=== PATIENT | male | born 1980 | race Two or more races ===

== ENCOUNTER → 2021-07-22 | Emergency (ER) | payer SELFPAY ==
[~2021-07-22] VITALS: Ht 172.7 cm; Wt 90.7 kg
[~2021-07-22] MED LIST: MORPHINE SULFATE 4 MG/ML SYR/VIAL IV ONE; ONDANSETRON HCL 4 MG/2 ML VIAL IV ONE; SODIUM CHLORIDE 0.9% 1,000 ML IVB ONE
[2021-07-22 14:12] VITALS: BP 163/88
[2021-07-22 15:22] LABS: Basophils # (auto) 0 10 ^3/uL (0-0.2); Basophils % (auto) 0.3 % (0.0-2.0); Eosinophils # (auto) 0.2 10 ^3/uL (0-0.8); Hematocrit 43.5 % (41.0-53.0); Hemoglobin 15.8 g/dL (13.5-17.5); Lymphocytes # (auto) 2.8 10 ^3/uL (0.4-5.4); Lymphocytes % (auto) 29.8 % (10.0-50.0); Mean Corpuscular Hemoglobin 30.6 pg (28.0-32.0); Mean Corpuscular Hgb Conc. 36.4 g/dL (32.0-36.0); Monocytes # (auto) 0.9 10 ^3/uL (0-1.3); Monocytes % (auto) 9.5 % (0.0-12.0); Neutrophils # (auto) 5.6 10 ^3/uL (1.6-8.6); Neutrophils % (auto) 58.4 % (37.0-80.0); Nucleated Red Blood Cells % 0.2 %; Red Blood Cells 5.18 10^6/uL (4.5-5.90); Red Cell Distribution Width 13.9 % (11.8-14.3); White Blood Cell 9.5 10^3/uL (4.4-10.8)
[2021-07-22 15:43] LABS: Albumin 3.2 g/dL (3.4-5.0); Magnesium 2.4 mg/dL (1.6-2.6); Potassium 3.6 mmol/L (3.5-5.1)
[2021-07-22 15:55] LABS: BUN/Creatinine Ratio 7.6; Bilirubin, Total 0.9 mg/dL (0.2-1.0); Total Protein 7.6 g/dL (6.4-8.2)
== END | disposition home or self-care (01) ==
LOC: ER 14:12 → EDBD 14:12
DX: R07.89 Other chest pain (principal); E78.5 Hyperlipidemia, unspecified; I10 Essential (primary) hypertension; F17.210 Nicotine dependence, cigarettes, uncomplicated
CPT/HCPCS: 36415; 71045; 80053; 83735; 84484; 85025; 93005

== ENCOUNTER 2021-12-25 07:07 | Inpatient (IN) | payer OTHER ==
[~2021-12-25] VITALS: Ht 172.7 cm; Wt 118.6 kg
[2021-12-25] MEDS ORDERED: cloNIDine HCL 0.1 MG TAB PO ONE (07:30)
[2021-12-25 08:06] LABS: Basophils # (auto) 0 10 ^3/uL (0-0.2); Basophils % (auto) 0.1 % (0.0-2.0); Eosinophils # (auto) 0 10 ^3/uL (0-0.8); Hematocrit 45.9 % (41.0-53.0); Lymphocytes # (auto) 0.7 10 ^3/uL (0.4-5.4); Lymphocytes % (auto) 9.3 % (10.0-50.0); Mean Corpuscular Hemoglobin 30.3 pg (28.0-32.0); Mean Corpuscular Hgb Conc. 34.8 g/dL (32.0-36.0); Mean Corpuscular Volume 87.2 fL (80.0-100.0); Monocytes # (auto) 0.4 10 ^3/uL (0-1.3); Neutrophils # (auto) 6.6 10 ^3/uL (1.6-8.6); Neutrophils % (auto) 85.6 % (37.0-80.0); Nucleated Red Blood Cells % 0.1 %; Red Blood Cells 5.27 10^6/uL (4.5-5.90); Red Cell Distribution Width 13.6 % (11.8-14.3); White Blood Cell 7.8 10^3/uL (4.4-10.8)
[2021-12-25 08:24] LABS: Albumin 3.5 g/dL (3.4-5.0); BUN/Creatinine Ratio 15.6; Calcium 8.2 mg/dL (8.5-10.1); Potassium 3.9 mmol/L (3.5-5.1)
[2021-12-25 08:34] LABS: Bilirubin, Total 2.3 mg/dL (0.2-1.0); Total Protein 6.3 g/dL (6.4-8.2)
[2021-12-25] MEDS ORDERED: LABETALOL HCL 5 MG/ML 4ML SYRINGE IV ONE (09:30)
[2021-12-25] MEDS ORDERED: hydrALAZINE HCL 20 MG/ML VL IV ONE (09:30)
[2021-12-25] MEDS ORDERED: SODIUM CHLORIDE 0.9% 500 ML IVB ONE (09:45)
[2021-12-25] MEDS ORDERED: METOCLOPRAMIDE HCL 5MG/ml INJ 2ml VIAL IV ONE (09:45)
[2021-12-25] MEDS: HYDROmorphone HCL 2 MG/ML VL/or syr IV ONE ×2 (09:45→12:56)
[2021-12-25] MEDS ORDERED: SODIUM CHLORIDE 0.9% 1,000 ML IV ONE ×2 (09:45→13:00)
[2021-12-25 10:20] LABS: Urine Bacteria NONE SEEN /hpf (None Seen); Urine Blood Negative /uL (Negative); Urine Mucus FEW (None Seen); Urine Specific Gravity 1.015 (1.001-1.035); Urine WBC 1 /hpf (0 - 3)
[2021-12-25 11:32] LABS: Amphetamine Screen, Urine POSITIVE (NEGATIVE); Barbiturate Scree,Urine NEGATIVE (NEGATIVE); Benzodiazephine Screen, Urine NEGATIVE (NEGATIVE); Cannabinoid Screen, Urine NEGATIVE (NEGATIVE); Cocaine Screen, Urine NEGATIVE (NEGATIVE); Opiate Scree,Urine NEGATIVE (NEGATIVE); Phencyclidine Screen, Urine NEGATIVE (NEGATIVE)
[2021-12-25] MEDS ORDERED: HYDROcodone-ACET 5/325MG TAB PO PRN (13:00)
[2021-12-25] MEDS ORDERED: ONDANSETRON HCL 4 MG/2 ML VIAL IV PRN (13:00)
[2021-12-25] MEDS ORDERED: SODIUM CHLORIDE 0.9% 1,000 ML IV SCH (13:00)
[2021-12-25] MEDS ORDERED: NITROGLYCERIN 0.4 MG SL TAB SL PRN (13:00)
[2021-12-25] MEDS ORDERED: MORPHINE SULFATE INJ 2 MG/ml SYRG IV PRN (13:00)
[2021-12-25] MEDS ORDERED: DOCUSATE SOD 100 MG CAP PO PRN (13:00)
[2021-12-25] MEDS ORDERED: ACETAMINOPHEN 325 MG TAB PO PRN (13:00)
[2021-12-25] MEDS ORDERED: KETOROLAC TROMETH 30 MG/ML 1ML VIAL IV ONE (13:15)
[2021-12-25 13:36] LABS: Cholesterol 150 mg/dL (< 200); HDL Cholesterol 44 mg/dL (40-59); LDL Cholesterol 99 mg/dL (< 100); Triglycerides 78 mg/dL (< 150)
[2021-12-25] MEDS: METOCLOPRAMIDE HCL 5MG/ml INJ 2ml VIAL IV SCH ×2 (14:00→23:10)
[2021-12-25] MEDS: KETOROLAC TROMETH 30 MG/ML 1ML VIAL IV PRN ×2 (17:25→23:10)
[2021-12-25] MEDS: hydrALAZINE HCL 20 MG/ML VL IV PRN (23:11)
[2021-12-25] MEDS: chlordiazePOXIDE HCL 25 MG CAP PO PRN (23:22)
[2021-12-26] MEDS: MORPHINE SULFATE INJ 2 MG/ml SYRG IV PRN ×2 (03:00→08:37)
[2021-12-26] MEDS: KETOROLAC TROMETH 30 MG/ML 1ML VIAL IV PRN ×2 (04:53→10:58)
[2021-12-26] MEDS: METOCLOPRAMIDE HCL 5MG/ml INJ 2ml VIAL IV SCH ×3 (06:20→23:54)
[2021-12-26 08:24] LABS: Basophils # (auto) 0 10 ^3/uL (0-0.2); Basophils % (auto) 0.3 % (0.0-2.0); Eosinophils # (auto) 0 10 ^3/uL (0-0.8); Eosinophils % (auto) 0.1 % (0.0-7.0); Hematocrit 49.4 % (41.0-53.0); Hemoglobin 16.9 g/dL (13.5-17.5); Lymphocytes # (auto) 2.3 10 ^3/uL (0.4-5.4); Lymphocytes % (auto) 16.9 % (10.0-50.0); Mean Corpuscular Hemoglobin 29.9 pg (28.0-32.0); Mean Corpuscular Hgb Conc. 34.3 g/dL (32.0-36.0); Mean Corpuscular Volume 87.2 fL (80.0-100.0); Monocytes % (auto) 7.4 % (0.0-12.0); Neutrophils # (auto) 10.4 10 ^3/uL (1.6-8.6); Neutrophils % (auto) 75.3 % (37.0-80.0); Nucleated Red Blood Cells % 0.1 %; Red Blood Cells 5.66 10^6/uL (4.5-5.90); Red Cell Distribution Width 14.2 % (11.8-14.3); White Blood Cell 13.8 10^3/uL (4.4-10.8)
[2021-12-26] MEDS: chlordiazePOXIDE HCL 25 MG CAP PO PRN ×2 (08:35→22:00)
[2021-12-26 09:04] LABS: Albumin 3.2 g/dL (3.4-5.0); BUN/Creatinine Ratio 13.6; Bilirubin, Total 1.4 mg/dL (0.2-1.0); Potassium 3.7 mmol/L (3.5-5.1); Total Protein 6.1 g/dL (6.4-8.2)
[2021-12-26] MEDS: ENOXAPARIN SOD 40 MG/0.4 ML SYRINGE SC SCH (09:48)
[2021-12-26] MEDS: LACTATED RINGER'S 1,000 ML IV SCH ×2 (13:38→20:26)
[2021-12-26] MEDS: HYDROmorphone HCL 2 MG/ML VL/or syr IV PRN ×4 (13:39→23:55)
[2021-12-26 20:38] VITALS: BP 166/91
[2021-12-26 22:00] VITALS: BP 166/91
[2021-12-27] MEDS: hydrALAZINE HCL 20 MG/ML VL IV PRN ×2 (00:16→12:29)
[2021-12-27] MEDS: LACTATED RINGER'S 1,000 ML IV SCH ×2 (02:35→08:52)
[2021-12-27] MEDS: HYDROmorphone HCL 2 MG/ML VL/or syr IV PRN ×4 (03:10→12:28)
[2021-12-27] MEDS: METOCLOPRAMIDE HCL 5MG/ml INJ 2ml VIAL IV SCH ×2 (06:15→13:37)
[2021-12-27] MEDS: chlordiazePOXIDE HCL 25 MG CAP PO PRN (08:48)
[2021-12-27] MEDS: ENOXAPARIN SOD 40 MG/0.4 ML SYRINGE SC SCH (08:48)
[2021-12-27 09:00] VITALS: BP 124/84
[2021-12-27 09:04] LABS: Basophils # (auto) 0 10 ^3/uL (0-0.2); Basophils % (auto) 0.2 % (0.0-2.0); Eosinophils # (auto) 0 10 ^3/uL (0-0.8); Eosinophils % (auto) 0.2 % (0.0-7.0); Hematocrit 45.7 % (41.0-53.0); Hemoglobin 15.5 g/dL (13.5-17.5); Lymphocytes # (auto) 2.5 10 ^3/uL (0.4-5.4); Lymphocytes % (auto) 14.3 % (10.0-50.0); Mean Corpuscular Hemoglobin 29.6 pg (28.0-32.0); Mean Corpuscular Volume 87.2 fL (80.0-100.0); Monocytes # (auto) 1.7 10 ^3/uL (0-1.3); Monocytes % (auto) 9.9 % (0.0-12.0); Neutrophils # (auto) 13.3 10 ^3/uL (1.6-8.6); Neutrophils % (auto) 75.4 % (37.0-80.0); Nucleated Red Blood Cells % 0.1 %; Red Blood Cells 5.25 10^6/uL (4.5-5.90); Red Cell Distribution Width 13.8 % (11.8-14.3); White Blood Cell 17.6 10^3/uL (4.4-10.8)
[2021-12-27 09:29] LABS: Albumin 2.8 g/dL (3.4-5.0); BUN/Creatinine Ratio 12.6; Bilirubin, Total 2.1 mg/dL (0.2-1.0); Potassium 3.6 mmol/L (3.5-5.1)
[2021-12-27] MEDS ORDERED: LACTATED RINGER'S 1,000 ML IV SCH (11:30)
[2021-12-27] MEDS ORDERED: FOLIC ACID 1 MG, MULTIPLE VITAMIN 10 ML, THIAMINE INJ 100 MG in SODIUM CHLORIDE 0.9% 1,... INJ SCH (12:00)
[2021-12-27 13:06] VITALS: BP 151/95
[2021-12-27] MEDS ORDERED: metroNIDAZOLE 500MG/100ML 100 ML IV SCH (14:00)
[2021-12-28] MEDS ORDERED: cefTRIAXone 1GM/50ML D5W 50 ML IV SCH (09:00)
== END 2021-12-27 14:30 | disposition left against medical advice (07) | DRG 282 ==
LOC: EDUNIT# 07:07 → EDBD 07:07 → ER 07:07 → TELE 12:58 → TELE-EAST 12-26 21:15 → EAST 12-27 10:49
PROVIDERS: ADMIT Nurse Practitioner Family; ATTEND Nurse Practitioner Acute Care
DX: K85.90 Acute pancreatitis without necrosis or infection, unspecified (principal); R65.11 Systemic inflammatory response syndrome (SIRS) of non-infectious origin with acute organ dysfunction; E66.01 Morbid (severe) obesity due to excess calories; Z68.39 Body mass index [BMI] 39.0-39.9, adult; E78.5 Hyperlipidemia, unspecified; F15.10 Other stimulant abuse, uncomplicated; I10 Essential (primary) hypertension; F17.210 Nicotine dependence, cigarettes, uncomplicated; R74.01 Elevation of levels of liver transaminase levels; R74.8 Abnormal levels of other serum enzymes; Z20.822 Contact with and (suspected) exposure to COVID-19; F19.10 Other psychoactive substance abuse, uncomplicated; Z53.29 Procedure and treatment not carried out because of patient's decision for other reasons
CPT/HCPCS: 36415; 71045; 74177; 80053; 80061; 80307; 81001; 82150; 83036; 83690; 83735; 84484; 85025; 87040; 87426; 93005; 96361; 96374; 96375; 99291; G0378; J1885; J2405; J3490

== ENCOUNTER 2021-12-27 21:12 | Emergency (ER) | payer OTHER ==
[~2021-12-27] VITALS: Ht 182.9 cm; Wt 104.3 kg
[2021-12-27 21:22] VITALS: BP 133/70
[2021-12-27 23:57] LABS: Albumin 2.6 g/dL (3.4-5.0); Calcium 8.1 mg/dL (8.5-10.1); Potassium 3.7 mmol/L (3.5-5.1)
[2021-12-27 23:59] LABS: BUN/Creatinine Ratio 15.5
[2021-12-28 00:01] LABS: Basophils # (auto) 0 10 ^3/uL (0-0.2); Eosinophils # (auto) 0 10 ^3/uL (0-0.8); Eosinophils % (auto) 0.2 % (0.0-7.0); Hematocrit 42.3 % (41.0-53.0); Hemoglobin 14.4 g/dL (13.5-17.5); Lymphocytes # (auto) 2.1 10 ^3/uL (0.4-5.4); Lymphocytes % (auto) 15.2 % (10.0-50.0); Mean Corpuscular Hemoglobin 29.6 pg (28.0-32.0); Mean Corpuscular Volume 87.1 fL (80.0-100.0); Monocytes # (auto) 1.6 10 ^3/uL (0-1.3); Monocytes % (auto) 11.2 % (0.0-12.0); Neutrophils # (auto) 10.3 10 ^3/uL (1.6-8.6); Neutrophils % (auto) 73.4 % (37.0-80.0); Red Blood Cells 4.86 10^6/uL (4.5-5.90); Red Cell Distribution Width 13.5 % (11.8-14.3)
[2021-12-28 00:11] LABS: Bilirubin, Total 1.1 mg/dL (0.2-1.0); Total Protein 5.8 g/dL (6.4-8.2)
== END 2021-12-28 01:06 | disposition left against medical advice (07) ==
LOC: EDBD 21:12 → ER 21:12
DX: E78.5 Hyperlipidemia, unspecified (principal); I10 Essential (primary) hypertension; F17.210 Nicotine dependence, cigarettes, uncomplicated; F15.10 Other stimulant abuse, uncomplicated
CPT/HCPCS: 36415; 71045; 74176; 80053; 83690; 85025

== ENCOUNTER 2021-12-29 14:13 | Inpatient (IN) | payer OTHER ==
[~2021-12-29] VITALS: Ht 182.9 cm; Wt 117.1 kg
[2021-12-29 15:28] LABS: Basophils # (auto) 0 10 ^3/uL (0-0.2); Basophils % (auto) 0.1 % (0.0-2.0); Eosinophils # (auto) 0.2 10 ^3/uL (0-0.8); Eosinophils % (auto) 2.2 % (0.0-7.0); Hematocrit 42.1 % (41.0-53.0); Hemoglobin 14.3 g/dL (13.5-17.5); Lymphocytes # (auto) 1.1 10 ^3/uL (0.4-5.4); Lymphocytes % (auto) 9.6 % (10.0-50.0); Mean Corpuscular Hemoglobin 29.6 pg (28.0-32.0); Mean Corpuscular Hgb Conc. 33.9 g/dL (32.0-36.0); Mean Corpuscular Volume 87.3 fL (80.0-100.0); Monocytes # (auto) 1.2 10 ^3/uL (0-1.3); Monocytes % (auto) 11.2 % (0.0-12.0); Neutrophils # (auto) 8.4 10 ^3/uL (1.6-8.6); Neutrophils % (auto) 76.9 % (37.0-80.0); Nucleated Red Blood Cells % 0.1 %; Red Blood Cells 4.83 10^6/uL (4.5-5.90); Red Cell Distribution Width 13.7 % (11.8-14.3)
[2021-12-29 15:46] LABS: Albumin 2.3 g/dL (3.4-5.0); Anion Gap 10 (5-15); BUN/Creatinine Ratio 11.8; Blood Urea Nitrogen 9 mg/dL (7-18); Calcium 7.6 mg/dL (8.5-10.1); Carbon Dioxide 27 mmol/L (21-32); Chloride 99 mmol/L (98-107); GFR African American 147 mL/min; GFR Non-African American 121 mL/min; Glucose 150 mg/dL (74-106); Lipase 148 U/L (73-393); Magnesium 2.3 mg/dL (1.6-2.6); Potassium 3.3 mmol/L (3.5-5.1); Sodium 136 mmol/L (136-145)
[2021-12-29 15:49] LABS: Alanine Aminotransferase 59 U/L (16-61); Alkaline Phosphatase 60 U/L (45-117); Aspartate Aminotransferase 37 U/L (15-37); Bilirubin, Total 0.4 mg/dL (0.2-1.0); Total Protein 5.8 g/dL (6.4-8.2)
[2021-12-29] MEDS ORDERED: SODIUM CHLORIDE 0.9% 1,000 ML IV ONE (17:15)
[2021-12-29] MEDS ORDERED: ONDANSETRON HCL 4 MG/2 ML VIAL IV PRN (18:30)
[2021-12-29] MEDS ORDERED: ALBUTEROL SULF 2.5 MG/0.5ML(0.5%) NEB SOLN NEB ONE (18:30)
[2021-12-29] MEDS ORDERED: IPRATROPIUM BROM 0.5 MG/2.5ML INH SOL NEB PRN ×2 (18:30)
[2021-12-29] MEDS ORDERED: IPRATROPIUM BROM 0.5 MG/2.5ML INH SOL NEB ONE (18:30)
[2021-12-29] MEDS ORDERED: DOCUSATE SOD 100 MG CAP PO PRN (18:30)
[2021-12-29] MEDS ORDERED: PANTOPRAZOLE 40 MG/10 ML VIAL INJ IV ONE (18:45)
[2021-12-29] MEDS ORDERED: HYDROmorphone HCL 2 MG/ML VL/or syr IV PRN (18:45)
[2021-12-29] MEDS ORDERED: POTASSIUM EFFERVESENT TAB 25 MEQ PO ONE (19:00)
[2021-12-29 20:31] VITALS: BP 148/94
[2021-12-29] MEDS: HYDROmorphone HCL 2 MG/ML VL/or syr IV PRN (21:54)
[2021-12-29] MEDS: SODIUM CHLORIDE 0.9% 1,000 ML IV SCH (22:18)
[2021-12-29 23:54] VITALS: BP 144/87
[2021-12-30] MEDS ORDERED: HYDROmorphone HCL 2 MG/ML VL/or syr IV ONE (01:00)
[2021-12-30] MEDS: SODIUM CHLORIDE 0.9% 1,000 ML IV SCH ×2 (02:50→11:24)
[2021-12-30] MEDS: HYDROmorphone HCL 2 MG/ML VL/or syr IV PRN ×5 (05:05→22:09)
[2021-12-30 06:25] VITALS: BP 132/81
[2021-12-30 08:00] VITALS: BP 128/74
[2021-12-30 08:03] LABS: Basophils # (auto) 0 10 ^3/uL (0-0.2); Basophils % (auto) 0.2 % (0.0-2.0); Eosinophils # (auto) 0.2 10 ^3/uL (0-0.8); Eosinophils % (auto) 2.5 % (0.0-7.0); Hematocrit 40.3 % (41.0-53.0); Hemoglobin 13.3 g/dL (13.5-17.5); Lymphocytes # (auto) 1.6 10 ^3/uL (0.4-5.4); Lymphocytes % (auto) 17.6 % (10.0-50.0); Mean Corpuscular Hemoglobin 28.8 pg (28.0-32.0); Mean Corpuscular Volume 87.5 fL (80.0-100.0); Monocytes # (auto) 1.1 10 ^3/uL (0-1.3); Monocytes % (auto) 12.3 % (0.0-12.0); Neutrophils % (auto) 67.4 % (37.0-80.0); Red Blood Cells 4.61 10^6/uL (4.5-5.90); White Blood Cell 8.9 10^3/uL (4.4-10.8)
[2021-12-30 08:31] LABS: Albumin 2.2 g/dL (3.4-5.0); Calcium 7.9 mg/dL (8.5-10.1); Potassium 3.3 mmol/L (3.5-5.1)
[2021-12-30 08:34] LABS: BUN/Creatinine Ratio 9.3; Bilirubin, Total 0.4 mg/dL (0.2-1.0); Total Protein 5.4 g/dL (6.4-8.2)
[2021-12-30] MEDS ORDERED: PANTOPRAZOLE 40 MG/10 ML VIAL INJ IV SCH ×2 (10:00)
[2021-12-30 12:00] VITALS: BP 116/80
[2021-12-30] MEDS ORDERED: levoFLOXacin 500MG 100 ML IV ONE (12:30)
[2021-12-30] MEDS ORDERED: methylPREDNISolone SOD SUCC 40 MG/ML VL IV ONE (12:30)
[2021-12-30] MEDS: methylPREDNISolone SOD SUCC 40 MG/ML VL IV SCH ×2 (13:15→22:10)
[2021-12-30] MEDS ORDERED: MORPHINE SULFATE INJ 2 MG/ml SYRG IV PRN (15:30)
[2021-12-30] MEDS: LACTATED RINGER'S 1,000 ML IV SCH (16:39)
[2021-12-30 17:00] VITALS: BP 140/83
[2021-12-30] MEDS: ALBUTEROL SULF 2.5 MG/0.5ML(0.5%) NEB SOLN NEB PRN (18:00)
[2021-12-30] MEDS: IPRATROPIUM BROM 0.5 MG/2.5ML INH SOL NEB SCH (18:00)
[2021-12-30 22:00] VITALS: BP 137/93
[2021-12-31] MEDS: LACTATED RINGER'S 1,000 ML IV SCH ×2 (00:15→10:13)
[2021-12-31] MEDS: HYDROmorphone HCL 2 MG/ML VL/or syr IV PRN (02:42)
[2021-12-31 05:00] VITALS: BP_SYST 130; BP_SYST 148; BP_DIAS 104; BP_DIAS 68
[2021-12-31] MEDS: methylPREDNISolone SOD SUCC 40 MG/ML VL IV SCH (05:40)
[2021-12-31] MEDS: IPRATROPIUM BROM 0.5 MG/2.5ML INH SOL NEB SCH (07:22)
[2021-12-31] MEDS: ALBUTEROL SULF 2.5 MG/0.5ML(0.5%) NEB SOLN NEB PRN (07:23)
[2021-12-31 09:00] VITALS: BP 138/92
[2021-12-31] MEDS ORDERED: levoFLOXacin 500MG 100 ML IV SCH (10:00)
== END 2021-12-31 10:30 | disposition left against medical advice (07) ==
LOC: ER 14:13 → OVERFLOW 18:36 → WEST WING 23:06 → TELE-WESTW 12-30 12:35
PROVIDERS: ADMIT Nurse Practitioner Family; ATTEND Internal Medicine
DX: K80.20 Calculus of gallbladder without cholecystitis without obstruction (principal); E78.5 Hyperlipidemia, unspecified; E86.0 Dehydration; E87.6 Hypokalemia; R09.02 Hypoxemia; I10 Essential (primary) hypertension; F17.210 Nicotine dependence, cigarettes, uncomplicated; Z53.29 Procedure and treatment not carried out because of patient's decision for other reasons; Z56.0 Unemployment, unspecified; F19.10 Other psychoactive substance abuse, uncomplicated; Y92.89 Other specified places as the place of occurrence of the external cause; Z20.822 Contact with and (suspected) exposure to COVID-19
CPT/HCPCS: 36415; 36600; 71045; 76705; 78226; 80053; 80320; 82805; 83605; 83690; 83735; 84484; 85025; 87040; 87077; 87186; 87426; 93005; 94640; 96361; 96374; C9113; G0378; J1956

== ENCOUNTER 2022-12-12 00:37 | Inpatient (IN) | payer OTHER ==
[~2022-12-12] VITALS: Ht 182.9 cm; Wt 121.0 kg
[2022-12-12] MEDS ORDERED: cefTRIAXone 1GM/50ML D5W 50 ML IV ONE (01:00)
[2022-12-12] MEDS ORDERED: SODIUM CHLORIDE 0.9% 3,250 ML IV ONE (01:00)
[2022-12-12] MEDS ORDERED: CLINDAMYCIN 600MG IV 50 ML IV ONE (01:00)
[2022-12-12 01:16] VITALS: PULSE 109; RESP 21; O2SAT 95
[2022-12-12 01:25] LABS: Basophils # (auto) 0 10 ^3/uL (0-0.2); Basophils % (auto) 0.2 % (0.0-2.0); Eosinophils # (auto) 0 10 ^3/uL (0-0.8); Eosinophils % (auto) 0.1 % (0.0-7.0); Hemoglobin 15.5 g/dL (13.5-17.5); Lymphocytes # (auto) 1.4 10 ^3/uL (0.4-5.4); Lymphocytes % (auto) 10.8 % (10.0-50.0); Mean Corpuscular Hemoglobin 29.5 pg (28.0-32.0); Mean Corpuscular Hgb Conc. 33.7 g/dL (32.0-36.0); Mean Corpuscular Volume 87.6 fL (80.0-100.0); Monocytes # (auto) 0.8 10 ^3/uL (0-1.3); Monocytes % (auto) 6.3 % (0.0-12.0); Neutrophils # (auto) 10.6 10 ^3/uL (1.6-8.6); Neutrophils % (auto) 82.6 % (37.0-80.0); Red Blood Cells 5.25 10^6/uL (4.5-5.90); Red Cell Distribution Width 13.9 % (11.8-14.3); White Blood Cell 12.9 10^3/uL (4.4-10.8)
[2022-12-12 01:45] LABS: Alanine Aminotransferase 31 U/L (7-40); Alkaline Phosphatase 51 U/L (46-116); Anion Gap 8 (5-15); Aspartate Aminotransferase 15 U/L (13-40); BUN/Creatinine Ratio 8.5 (10.0-20.0); Blood Urea Nitrogen 8 mg/dL (9-23); Calcium 9.1 mg/dL (8.7-10.4); Carbon Dioxide 22 mmol/L (20-30); Chloride 103 mmol/L (98-107); Glucose 122 mg/dL (74-106); Potassium 3.8 mmol/L (3.5-5.1); Sodium 133 mmol/L (136-145); Total Protein 6.5 g/dL (5.7-8.2)
[2022-12-12] MEDS ORDERED: IBUPROFEN 800 MG TAB PO ONE (02:00)
[2022-12-12 07:09] LABS: Urine Bacteria FEW /hpf (None Seen); Urine Blood Negative /uL (Negative); Urine Clarity Clear (Clear); Urine Color Straw (Yellow); Urine Protein, UAD Negative (Negative); Urine Specific Gravity 1.003 (1.001-1.035); Urine Urobilinogen Normal (Negative); Urine WBC <1 /hpf (0 - 3)
[2022-12-12] MEDS ORDERED: NITROGLYCERIN 0.4 MG SL TAB SL PRN (07:15)
[2022-12-12] MEDS ORDERED: ONDANSETRON HCL 4 MG/2 ML VIAL IV PRN ×2 (07:15→07:30)
[2022-12-12] MEDS ORDERED: TEMAZEPAM 15 MG CAP PO PRN (07:15)
[2022-12-12] MEDS ORDERED: MORPHINE SULFATE INJ 2 MG/ml SYRG IV PRN (07:15)
[2022-12-12] MEDS ORDERED: DOCUSATE SOD 100 MG CAP PO PRN (07:15)
[2022-12-12] MEDS ORDERED: hydrALAZINE HCL 20 MG/ML VL IV PRN (07:30)
[2022-12-12 07:35] VITALS: PULSE 86; RESP 20; O2SAT 96
[2022-12-12] MEDS: PIPERACILLIN-TAZOB 3.375GM 100 ML IV SCH ×3 (08:24→23:31)
[2022-12-12] MEDS: SODIUM CHLORIDE 0.9% 1,000 ML IV SCH ×3 (08:25→23:31)
[2022-12-12] MEDS: ASCORBIC ACID 500 MG TAB PO SCH ×2 (11:08→23:36)
[2022-12-12] MEDS: MULTIPLE VITAMIN TAB PO SCH (11:08)
[2022-12-12] MEDS: FAMOTIDINE (10MG/ML) 2ML VL IV SCH ×2 (11:08→23:36)
[2022-12-12] MEDS: ZINC SULFATE 220mg CAP or TAB PO SCH (11:08)
[2022-12-12] MEDS: ENOXAPARIN SOD 40 MG/0.4 ML SYRINGE SC SCH (11:08)
[2022-12-12 11:53] LABS: Amphetamine Screen, Urine Pos (NEGATIVE); Barbiturate Scree,Urine Neg (NEGATIVE); Benzodiazephine Screen, Urine Neg (NEGATIVE); Cocaine Screen, Urine Pos (NEGATIVE)
[2022-12-12 11:54] LABS: Cannabinoid Screen, Urine Neg (NEGATIVE); Opiate Scree,Urine Neg (NEGATIVE); Phencyclidine Screen, Urine Neg (NEGATIVE)
[2022-12-12] MEDS: MORPHINE SULFATE INJ 2 MG/ml SYRG IV PRN ×2 (13:00→23:37)
[2022-12-12] MEDS: ACETAMINOPHEN 325 MG TAB PO PRN (19:11)
[2022-12-12 19:45] VITALS: PULSE 101; RESP 18; O2SAT 96
[2022-12-12 22:55] VITALS: O2SAT 95
[2022-12-12 23:39] VITALS: BP_SYST 116; BP_SYST 121; BP_DIAS 73; PULSE 90; PULSE 95; RESP 16; RESP 21; TEMP 97.8; O2SAT 97; O2SAT 98
[2022-12-13] MEDS: HYDROcodone-ACET 5/325MG TAB PO PRN (02:52)
[2022-12-13] MEDS: MORPHINE SULFATE INJ 2 MG/ml SYRG IV PRN ×2 (04:39→10:13)
[2022-12-13 06:46] LABS: Alanine Aminotransferase 23 U/L (7-40); Alkaline Phosphatase 44 U/L (46-116); Anion Gap 5 (5-15); BUN/Creatinine Ratio 6.3 (10.0-20.0); Blood Urea Nitrogen 6 mg/dL (9-23); Calcium 8.9 mg/dL (8.7-10.4); Carbon Dioxide 25 mmol/L (20-30); Chloride 105 mmol/L (98-107); Glucose 111 mg/dL (74-106); Potassium 3.8 mmol/L (3.5-5.1); Sodium 135 mmol/L (136-145)
[2022-12-13 06:47] LABS: Albumin 3.9 g/dL (3.2-4.8); Aspartate Aminotransferase 10 U/L (13-40); Bilirubin, Total 0.7 mg/dL (0.2-1.0); Total Protein 6.4 g/dL (5.7-8.2)
[2022-12-13 07:11] LABS: Basophils # (auto) 0 10 ^3/uL (0-0.2); Basophils % (auto) 0.2 % (0.0-2.0); Eosinophils # (auto) 0 10 ^3/uL (0-0.8); Eosinophils % (auto) 0.2 % (0.0-7.0); Hematocrit 44.7 % (41.0-53.0); Hemoglobin 14.9 g/dL (13.5-17.5); Lymphocytes # (auto) 2.3 10 ^3/uL (0.4-5.4); Lymphocytes % (auto) 21.7 % (10.0-50.0); Mean Corpuscular Hemoglobin 29.8 pg (28.0-32.0); Mean Corpuscular Hgb Conc. 33.4 g/dL (32.0-36.0); Mean Corpuscular Volume 89.2 fL (80.0-100.0); Monocytes # (auto) 0.7 10 ^3/uL (0-1.3); Monocytes % (auto) 6.9 % (0.0-12.0); Neutrophils # (auto) 7.6 10 ^3/uL (1.6-8.6); Nucleated Red Blood Cells % 0.1 %; Red Blood Cells 5.02 10^6/uL (4.5-5.90); Red Cell Distribution Width 14.1 % (11.8-14.3); White Blood Cell 10.7 10^3/uL (4.4-10.8)
[2022-12-13 07:25] LABS: Cholesterol 122 mg/dL (< 200); HDL Cholesterol 40 mg/dL (40-59); LDL Cholesterol 68 mg/dL (< 100); Triglycerides 106 mg/dL (< 150)
[2022-12-13 08:00] VITALS: PULSE 103; RESP 22; O2SAT 93
[2022-12-13 08:30] VITALS: BP 120/75; PULSE 103; RESP 22; TEMP 98.8; O2SAT 93
[2022-12-13] MEDS: FAMOTIDINE (10MG/ML) 2ML VL IV SCH (10:11)
[2022-12-13] MEDS: MULTIPLE VITAMIN TAB PO SCH (10:11)
[2022-12-13] MEDS: ASCORBIC ACID 500 MG TAB PO SCH ×2 (10:11→22:08)
[2022-12-13] MEDS: ZINC SULFATE 220mg CAP or TAB PO SCH (10:11)
[2022-12-13] MEDS: ENOXAPARIN SOD 40 MG/0.4 ML SYRINGE SC SCH (10:11)
[2022-12-13] MEDS: PIPERACILLIN-TAZOB 3.375GM 100 ML IV SCH ×2 (10:12→17:25)
[2022-12-13 12:25] VITALS: BP 127/86; PULSE 95; RESP 24; TEMP 98; O2SAT 97
[2022-12-13] MEDS: SODIUM CHLORIDE 0.9% 1,000 ML IV SCH ×2 (15:36→23:15)
[2022-12-13 16:25] VITALS: BP 125/76; PULSE 97; RESP 20; TEMP 100.6; O2SAT 96
[2022-12-13] MEDS ORDERED: VANCOMYCIN PER PHARMACY 0 MG IV SCH (16:30)
[2022-12-13] MEDS: HYDROmorphone HCL 2 MG/ML VL/or syr IV PRN ×2 (17:24→22:08)
[2022-12-13] MEDS: ACETAMINOPHEN 325 MG TAB PO PRN (17:28)
[2022-12-13] MEDS ORDERED: VANCOMYCIN 1GM/250ML 250 ML IV SCH (18:00)
[2022-12-13 20:00] VITALS: O2SAT 98
[2022-12-13] MEDS: FAMOTIDINE 20 MG TAB PO SCH (22:08)
[2022-12-13 23:31] VITALS: BP 116/73; PULSE 90; RESP 16; TEMP 98.7; O2SAT 98
[2022-12-14] VITALS (8 sets, daily range): BP systolic 129–148; BP diastolic 79–86; PULSE 84–94; RESP 16–20; TEMP 97.6–98.7; O2SAT 93–98
[2022-12-14] MEDS: PIPERACILLIN-TAZOB 3.375GM 100 ML IV SCH ×4 (00:12→23:58)
[2022-12-14] MEDS: HYDROmorphone HCL 2 MG/ML VL/or syr IV PRN ×5 (02:10→22:45)
[2022-12-14] MEDS: VANCOMYCIN 1GM/250ML 250 ML IV SCH ×3 (04:29→21:15)
[2022-12-14 08:39] LABS: Hepatitis B Surface Antigen Negative (Negative)
[2022-12-14 08:59] LABS: Hepatitis A Ab IgM Negative
[2022-12-14 09:00] LABS: Hepatitis B Core IgM Negative; Hepatitis C Antibody Negative (Negative)
[2022-12-14] MEDS: SODIUM CHLORIDE 0.9% 1,000 ML IV SCH ×3 (09:15→23:59)
[2022-12-14] MEDS: ENOXAPARIN SOD 40 MG/0.4 ML SYRINGE SC SCH (10:53)
[2022-12-14] MEDS: ZINC SULFATE 220mg CAP or TAB PO SCH (10:53)
[2022-12-14] MEDS: ASCORBIC ACID 500 MG TAB PO SCH ×2 (10:54→21:39)
[2022-12-14] MEDS: MULTIPLE VITAMIN TAB PO SCH (10:57)
[2022-12-14] MEDS: FAMOTIDINE 20 MG TAB PO SCH ×2 (10:57→21:39)
[2022-12-14] MEDS: HYDROcodone-ACET 5/325MG TAB PO PRN ×2 (11:12→16:51)
[2022-12-15] MEDS: HYDROcodone-ACET 5/325MG TAB PO PRN ×2 (03:36→10:41)
[2022-12-15] MEDS: VANCOMYCIN 1GM/250ML 250 ML IV SCH (04:45)
[2022-12-15 05:00] VITALS: BP 129/70; PULSE 90; RESP 18; TEMP 98.5; O2SAT 95
[2022-12-15] MEDS: HYDROmorphone HCL 2 MG/ML VL/or syr IV PRN (06:09)
[2022-12-15 08:00] VITALS: PULSE 74; RESP 18; O2SAT 96
[2022-12-15 09:00] VITALS: BP 108/67; PULSE 82; RESP 20; TEMP 98.1; O2SAT 98
[2022-12-15] MEDS: MULTIPLE VITAMIN TAB PO SCH (10:00)
[2022-12-15] MEDS ORDERED: BACDST PO (10:31)
[2022-12-15] MEDS ORDERED: HYDR-4798 PO (10:31)
[2022-12-15] MEDS: PIPERACILLIN-TAZOB 3.375GM 100 ML IV SCH (10:40)
[2022-12-15] MEDS: ENOXAPARIN SOD 40 MG/0.4 ML SYRINGE SC SCH (10:40)
[2022-12-15] MEDS: ZINC SULFATE 220mg CAP or TAB PO SCH (10:40)
[2022-12-15] MEDS: ASCORBIC ACID 500 MG TAB PO SCH (10:41)
[2022-12-15] MEDS: FAMOTIDINE 20 MG TAB PO SCH (10:41)
[2022-12-15 11:46] VITALS: BP 108/67; PULSE 82; RESP 20; TEMP 98.1; O2SAT 98
[2022-12-21 07:06] LABS: RPR Non Reactive (Non Reactive)
== END 2022-12-15 12:38 | disposition home or self-care (01) | DRG 720 ==
LOC: EDBD 00:37 → ER 00:37 → OVERFLOW 07:18 → WEST WING 22:50
PROVIDERS: ADMIT Nurse Practitioner; ATTEND Nurse Practitioner
DX: A41.9 Sepsis, unspecified organism (principal); E87.1 Hypo-osmolality and hyponatremia; L03.115 Cellulitis of right lower limb; E78.5 Hyperlipidemia, unspecified; F15.10 Other stimulant abuse, uncomplicated; F17.210 Nicotine dependence, cigarettes, uncomplicated; I10 Essential (primary) hypertension
CPT/HCPCS: 36415; 73700; 80053; 80061; 80074; 80202; 80307; 81001; 82565; 83605; 85025; 86592; 86703; 86803; 87040; 93971; G0378; J0696; J2405; J2543; J3490

== ENCOUNTER 2023-01-26 01:26 | Inpatient (IN) | payer OTHER ==
[~2023-01-26] VITALS: Ht 182.9 cm; Wt 247.1 kg
[~2023-01-26 01:26] MED LIST changes: +BACDST PO; +HYDR-4798 PO; -MORPHINE SULFATE 4 MG/ML SYR/VIAL IV ONE; -ONDANSETRON HCL 4 MG/2 ML VIAL IV ONE; -SODIUM CHLORIDE 0.9% 1,000 ML IVB ONE
[2023-01-26] MEDS ORDERED: ONDANSETRON HCL 4 MG/2 ML VIAL IV ONE ×3 (01:45→16:15)
[2023-01-26] MEDS ORDERED: MORPHINE SULFATE 4 MG/ML SYR/VIAL IV ONE ×2 (02:15→05:00)
[2023-01-26 02:20] VITALS: PULSE 69; RESP 19; O2SAT 100
[2023-01-26 02:33] LABS: Basophils # (auto) 0 10 ^3/uL (0-0.2); Basophils % (auto) 0.2 % (0.0-2.0); Eosinophils # (auto) 0.1 10 ^3/uL (0-0.8); Eosinophils % (auto) 0.8 % (0.0-7.0); Hematocrit 46.5 % (41.0-53.0); Hemoglobin 15.4 g/dL (13.5-17.5); Lymphocytes # (auto) 2.7 10 ^3/uL (0.4-5.4); Lymphocytes % (auto) 27.9 % (10.0-50.0); Mean Corpuscular Hemoglobin 28.6 pg (28.0-32.0); Mean Corpuscular Hgb Conc. 33.2 g/dL (32.0-36.0); Mean Corpuscular Volume 86.2 fL (80.0-100.0); Monocytes # (auto) 0.7 10 ^3/uL (0-1.3); Monocytes % (auto) 7.4 % (0.0-12.0); Neutrophils # (auto) 6.2 10 ^3/uL (1.6-8.6); Neutrophils % (auto) 63.7 % (37.0-80.0); Nucleated Red Blood Cells % 0.1 %; Red Blood Cells 5.39 10^6/uL (4.5-5.90); Red Cell Distribution Width 13.9 % (11.8-14.3); White Blood Cell 9.8 10^3/uL (4.4-10.8)
[2023-01-26 02:39] LABS: Alanine Aminotransferase 493 U/L (7-40); Albumin 4.3 g/dL (3.2-4.8); Alkaline Phosphatase 148 U/L (46-116); Anion Gap 10 (5-15); Aspartate Aminotransferase 320 U/L (13-40); BUN/Creatinine Ratio 7.8 (10.0-20.0); Bilirubin, Total 4.3 mg/dL (0.2-1.0); Blood Urea Nitrogen 8 mg/dL (9-23); Carbon Dioxide 21 mmol/L (20-30); Chloride 103 mmol/L (98-107); Glucose 209 mg/dL (74-106); Potassium 3.6 mmol/L (3.5-5.1); Sodium 134 mmol/L (136-145); Total Protein 7.2 g/dL (5.7-8.2)
[2023-01-26 03:01] LABS: Lipase > 3500 U/L (12-53)
[2023-01-26] MEDS ORDERED: KETOROLAC TROMETH 30 MG/ML 1ML VIAL IV ONE ×2 (05:00→16:15)
[2023-01-26] MEDS ORDERED: SODIUM CHLORIDE 0.9% 1,000 ML IVB ONE (05:00)
[2023-01-26] MEDS ORDERED: PANTOPRAZOLE 40 MG/10 ML VIAL INJ IV ONE (05:00)
[2023-01-26] MEDS ORDERED: PIPERACILLIN-TAZOB 3.375GM 100 ML IV ONE (05:00)
[2023-01-26 05:11] LABS: Urine Bacteria NONE SEEN /hpf (None Seen); Urine Blood 1+ /uL (Negative); Urine Clarity Clear (Clear); Urine Color Yellow (Yellow); Urine Protein, UAD Negative (Negative); Urine Specific Gravity 1.011 (1.001-1.035); Urine Urobilinogen Normal (Negative); Urine WBC 1 /hpf (0 - 3); Urine pH 5.5 (5.0-8.0)
[2023-01-26] MEDS ORDERED: hydrALAZINE HCL 20 MG/ML VL IV ONE (05:45)
[2023-01-26 05:49] LABS: INR 1.02 (0.9-1.15); Prothrombin Time 10.7 sec (9.3-11.8)
[2023-01-26 06:01] LABS: Amphetamine Screen, Urine Pos (NEGATIVE)
[2023-01-26 06:02] LABS: Barbiturate Scree,Urine Neg (NEGATIVE); Benzodiazephine Screen, Urine Neg (NEGATIVE); Cannabinoid Screen, Urine Neg (NEGATIVE); Cocaine Screen, Urine Neg (NEGATIVE); Opiate Scree,Urine Pos (NEGATIVE); Phencyclidine Screen, Urine Neg (NEGATIVE)
[2023-01-26 06:18] LABS: Blood Alcohol < 3.0 mg/dL (<10)
[2023-01-26 06:19] LABS: Magnesium 1.9 mg/dL (1.6-2.6)
[2023-01-26 08:00] VITALS: PULSE 87; RESP 15; O2SAT 99
[2023-01-26] MEDS ORDERED: HYDROmorphone HCL 2 MG/ML VL/or syr IV ONE (09:30)
[2023-01-26] MEDS ORDERED: NITROGLYCERIN 0.4 MG SL TAB SL PRN (17:45)
[2023-01-26] MEDS ORDERED: HYDROcodone-ACET 5/325MG TAB PO PRN (17:45)
[2023-01-26] MEDS ORDERED: ONDANSETRON HCL 4 MG/2 ML VIAL IV PRN (17:45)
[2023-01-26] MEDS ORDERED: ACETAMINOPHEN 325 MG TAB PO PRN (17:45)
[2023-01-26] MEDS ORDERED: MORPHINE SULFATE INJ 2 MG/ml SYRG IV PRN (17:45)
[2023-01-26] MEDS ORDERED: DOCUSATE SOD 100 MG CAP PO PRN (17:45)
[2023-01-26] MEDS: MORPHINE SULFATE INJ 2 MG/ml SYRG IV PRN (20:06)
[2023-01-26 22:00] VITALS: BP 160/100; PULSE 88; RESP 20; TEMP 98.7; O2SAT 92
[2023-01-26] MEDS: metroNIDAZOLE 500MG/100ML 100 ML IV SCH (22:06)
[2023-01-26] MEDS: SODIUM CHLORIDE 0.9% 1,000 ML IV SCH (22:11)
[2023-01-27] MEDS: MORPHINE SULFATE INJ 2 MG/ml SYRG IV PRN ×3 (00:08→09:43)
[2023-01-27 01:18] VITALS: BP 150/70; PULSE 80; RESP 20; TEMP 97.3; O2SAT 97
[2023-01-27 04:57] VITALS: BP 165/84; PULSE 96; RESP 15; TEMP 99.1; O2SAT 94
[2023-01-27 05:43] LABS: Basophils # (auto) 0 10 ^3/uL (0-0.2); Basophils % (auto) 0.3 % (0.0-2.0); Eosinophils # (auto) 0 10 ^3/uL (0-0.8); Eosinophils % (auto) 0.3 % (0.0-7.0); Hematocrit 45.1 % (41.0-53.0); Hemoglobin 15.1 g/dL (13.5-17.5); Lymphocytes # (auto) 1.6 10 ^3/uL (0.4-5.4); Lymphocytes % (auto) 14.9 % (10.0-50.0); Mean Corpuscular Hemoglobin 28.6 pg (28.0-32.0); Mean Corpuscular Hgb Conc. 33.5 g/dL (32.0-36.0); Mean Corpuscular Volume 85.3 fL (80.0-100.0); Monocytes # (auto) 0.8 10 ^3/uL (0-1.3); Monocytes % (auto) 6.8 % (0.0-12.0); Neutrophils # (auto) 8.6 10 ^3/uL (1.6-8.6); Neutrophils % (auto) 77.7 % (37.0-80.0); Nucleated Red Blood Cells % 0.1 %; Red Blood Cells 5.29 10^6/uL (4.5-5.90); Red Cell Distribution Width 14.1 % (11.8-14.3); White Blood Cell 11.1 10^3/uL (4.4-10.8)
[2023-01-27 06:06] LABS: Alanine Aminotransferase 366 U/L (7-40); Alkaline Phosphatase 161 U/L (46-116); Anion Gap 11 (5-15); Aspartate Aminotransferase 136 U/L (13-40); BUN/Creatinine Ratio 14.1 (10.0-20.0); Bilirubin, Total 5.3 mg/dL (0.2-1.0); Blood Urea Nitrogen 10 mg/dL (9-23); Carbon Dioxide 23 mmol/L (20-30); Chloride 100 mmol/L (98-107); Glucose 103 mg/dL (74-106); Potassium 3.5 mmol/L (3.5-5.1); Sodium 134 mmol/L (136-145)
[2023-01-27 06:07] LABS: Total Protein 6.7 g/dL (5.7-8.2)
[2023-01-27] MEDS: metroNIDAZOLE 500MG/100ML 100 ML IV SCH (06:10)
[2023-01-27 08:00] VITALS: PULSE 93
[2023-01-27 09:00] VITALS: BP 158/100; PULSE 93; RESP 18; TEMP 98.4; O2SAT 93
[2023-01-27] MEDS: SODIUM CHLORIDE 0.9% 1,000 ML IV SCH (09:43)
[2023-01-27 10:13] VITALS: BP 140/95; PULSE 93; RESP 18
== END 2023-01-27 13:11 | disposition home or self-care (01) | DRG 282 ==
LOC: ER 01:26 → EDUNIT# 01:26 → EDBD 01:26 → OVERFLOW 17:48 → WEST WING 19:01
PROVIDERS: ADMIT Nurse Practitioner Family; ATTEND Nurse Practitioner Family
DX: K85.10 Biliary acute pancreatitis without necrosis or infection (principal); E78.5 Hyperlipidemia, unspecified; I10 Essential (primary) hypertension; F19.10 Other psychoactive substance abuse, uncomplicated; Z91.199 Patient's noncompliance with other medical treatment and regimen due to unspecified reason
CPT/HCPCS: 36415; 71045; 76705; 80053; 80307; 80320; 81001; 83036; 83605; 83690; 83735; 84484; 85025; 85610; 85730; 96365; 96366; 96375; C9113; G0378; J1885; J2405; J2543; J3490

== ENCOUNTER 2023-05-03 20:54 | Emergency (ER) | payer OTHER ==
[~2023-05-03] VITALS: Ht 182.9 cm; Wt 109.0 kg
[2023-05-03 20:55] VITALS: BP 162/104; PULSE 99; RESP 18; O2SAT 96
== END 2023-05-03 21:43 | disposition left against medical advice (07) ==
LOC: ER 20:54 → EDBD 20:54 → ER 21:43
DX: R56.9 Unspecified convulsions (principal); Z53.21 Procedure and treatment not carried out due to patient leaving prior to being seen by health care provider

== ENCOUNTER 2024-06-11 12:45 | Emergency (ER) | payer OTHER ==
[~2024-06-11] VITALS: Ht 182.9 cm; Wt 120.0 kg
[2024-06-11] MEDS: cloNIDine HCL 0.1 MG TAB PO ONE (13:25)
[2024-06-11 13:33] VITALS: BP 174/123; PULSE 109; RESP 16; TEMP 98.9; O2SAT 96
[2024-06-11 13:51] LABS: Basophils # (auto) 0 10 ^3/uL (0-0.2); Basophils % (auto) 0.5 % (0.0-2.0); Eosinophils # (auto) 0.1 10 ^3/uL (0-0.8); Eosinophils % (auto) 1.8 % (0.0-7.0); Hematocrit 50.9 % (41.0-53.0); Hemoglobin 17.5 g/dL (13.5-17.5); Lymphocytes # (auto) 2.7 10 ^3/uL (0.4-5.4); Lymphocytes % (auto) 37.1 % (10.0-50.0); Mean Corpuscular Hemoglobin 29.7 pg (28.0-32.0); Mean Corpuscular Hgb Conc. 34.3 g/dL (32.0-36.0); Mean Corpuscular Volume 86.7 fL (80.0-100.0); Monocytes # (auto) 0.5 10 ^3/uL (0-1.3); Neutrophils # (auto) 3.8 10 ^3/uL (1.6-8.6); Neutrophils % (auto) 53.6 % (37.0-80.0); Nucleated Red Blood Cells % 0.2 %; Platelet Count (auto) 204 10^3/uL (140-450); Red Blood Cells 5.88 10^6/uL (4.5-5.90); Red Cell Distribution Width 13.5 % (11.8-14.3); White Blood Cell 7.2 10^3/uL (4.4-10.8)
--- NOTE | 2024-06-11 14:10 | DVH ---
US RT LOWER DVT US 06/11/2024 01:26 PM Clinical History: SWELLING AND REDNESS Comparison: US RT LOWER DVT on DOS: 12/12/22 Technique: Duplex Doppler evaluation of the deep venous system of the right lower extremity from the common femo ral vein to the popliteal vein including color Doppler and spectral/pulsed waveform analysis was perf ormed. Findings: The common femoral vein demonstrates appropriate compressibility and waveform variability . There is compressibility/patency of the great saphenous vein at the proximal thigh . The femoral vein demonstrates appropriate compressibility and waveform variability . The deep femoral vein demonstrates appropriate compressibility and waveform variability . The popliteal vein demonstrates appropriate compressibility and waveform variability . There is color flow in the tibioperoneal trunk and posterior tibial vein. Subcutaneous edema noted in the calf. Impression: 1. No deep venous thrombosis right lower extremity. If clinical concern/symptoms persist or worsen, short-interval follow-up study is suggested.
[2024-06-11 14:11] LABS: Alanine Aminotransferase 45 U/L (7-40); Albumin 4.8 g/dL (3.2-4.8); Alkaline Phosphatase 54 U/L (46-116); Anion Gap 8 (5-15); Aspartate Aminotransferase 17 U/L (13-40); BUN/Creatinine Ratio 11.1 (10.0-20.0); Bilirubin, Total 0.5 mg/dL (0.2-1.0); Blood Urea Nitrogen 10 mg/dL (9-23); Carbon Dioxide 24 mmol/L (20-31); Chloride 106 mmol/L (98-107); Glucose 105 mg/dL (74-106); Sodium 138 mmol/L (136-145); Total Protein 7.3 g/dL (5.7-8.2)
--- NOTE | 2024-06-11 14:26 | ED.PDOC ---
Musculoskeletal HPI Comments 43 year old male presents to the ED with chief complaint of right leg swelling. Patient reports that he has been experiencing right leg swelling for the past 2 weeks, but has had it intermittently over the past few years. Patient denies any numbness, weakness, warmth, chest pain, or SOB. Chief Complaint: Extremity Swelling Time Seen by MD: 14:25 Primary Care Provider: NONE Reviewed Notes: Nurses Notes, Medications, Allergies Allergies: Coded Allergies: NO KNOWN ALLERGIES (Unverified , 07/22/21) Home Meds Active Scripts Hydrocodone-Acetaminophen (Hydrocodone Bitartrate/AC 10-325 mg) 1 Tab Tab, 1 TAB PO Q6HP PRN for 5 Days, #20 TAB Prov:ECTOR SEAMAN BREWING DIRECTOR 12/15/22 Sulfamethoxazole W/Trimethopri (Bactrim Ds Tablet) 1 Tab Tb, 1 TAB PO BID for 14 Days, #28 TAB Prov:ECTOR SEAMAN BREWING DIRECTOR 12/15/22 Information Source: Patient Mode of Arrival: Ambulatory Location: Right Extremity Location: Leg Timing: Weeks Prehospital treatment: None Severity: Moderate Able to Move Extremity: Yes Bear Weight: Fully Pain: Moderate Mechanism: Spontaneous Circumstances: Spontaneous Onset of Symptoms: Spontaneous Symptoms: Swelling, Pain, Erythema DVT Risk Factors: NONE Last Tetanus: Unknown Past Medical History PAST MEDICAL HISTORY: High Lipids, HTN Surgical History: Denies all surgeries Family History Family History: No family hx of Cancer, No family hx of DM, No family hx of Heart bro Social History Smoker: Cigarettes Alcohol: Denies ETOH Use Drugs: Marijuana, Methamphetamine Lives In: Home Constitutional: denies: chills, diaphoresis, fatigue, fever, malaise, sweats, weakness, others EENTM: denies: blurred vision, double vision, ear bleeding, ear discharge, ear drainage, ear pain, ear ringing, eye pain, eye redness, hearing loss, mouth pain, mouth swelling, nasal discharge, nose bleeding, nose congestion, nose pain, photophobia, tearing, throat pain, throat swelling, voice changes, others Respiratory: denies: cough, hemoptysis, orthopnea, SOB at rest, shortness of breath, SOB with excertion, stridor, wheezing, others Cardiovascular: reports: edema; denies: chest pain, dizzy spells, diaphoresis, Dyspnea on exertion, irregular heart beat, left arm pain, lightheadedness, palpitations, PND, syncope, others Gastrointestinal: denies: abdomen distended, abdominal pain, blood streaked bowels, constipated, diarrhea, dysphagia, difficulty swallowing, hematemesis, melena, nausea, poor appetite, poor fluid intake, rectal bleeding, rectal pain, vomiting, others Genitourinary: denies: burning, dysuria, flank pain, frequency, hematuria, incontinence, penile discharge, penile sore, pain, testicle pain, testicle swelling, urgency, others Neurological: denies: dizziness, fainting, headache, left sided numbness, left sided weakness, numbness, paresthesia, pre-existing deficit, right sided numbness, right sided weakness, seizure, speech problems, tingling, tremors, weakness, others Musculoskeletal: denies: back pain, gout, joint pain, joint swelling, muscle pain, muscle stiffness, neck pain, others Integumetry: denies: bruises, change in color, change in hair/nails, dryness, laceration, lesions, lumps, rash, wounds, others Allergic/Immunocompromised: denies: Difficulty Healing, Frequent Infections, Hives, Itching, others Hematologic/Lymphatic: denies: anemia, blood clots, easy bleeding, easy bruising, swollen glands, others Endocrine: denies: excessive hunger, excessive sweating, excessive thirst, excessive urination, flushing, intolerance to cold, intolerance to heat, unexplained weight gain, unexplained weight loss, others Psychiatric: denies: anxiety, bipolar disorder, depression, hopeless, panic disorder, schizophrenia, sleepless, suicidal, others All Other Systems: Reviewed and Negative Physical Exam General Appearance: No Apparent Distress, Normal HEENT: Normal ENT Inspection, Pharynx Normal, TMs Normal Neck: Full Range of Motion, Non-Tender, Normal, Normal Inspection Respiratory: Chest Non-Tender, Lungs Clear, No Accessory Muscle Use, No Respiratory Distress, Normal Breath Sounds Cardiovascular: No Edema, No JVD, No Murmur, No Gallop, Normal Peripheral Pulses, Regular Rate/Rhythm Breast Exam: Deferred Gastrointestinal: No Organomegaly, Non Tender, No Pulsatile Mass, Normal Bowel Sounds, Soft Genitalia: Deferred Pelvic: Deferred Rectal: Deferred Extremities: No calf tenderness, Swelling (Chronic edema to the right lower leg with stasis dermatitis. No increase in warmth.) Musculoskeletal : Apperance: Normal Neurologic: Alert, insurance claims specialist II-XII nml as Tested, No Motor Deficits, Normal Affect, Normal Mood, No Sensory Deficits Cerebellar Function: Normal Reflexes: Normal Skin: Dry, Normal Color, Warm Lymphatic: No Adenopathy Was a procedure done? Was a procedure done?: No Differential Diagnosis EXT Differential Diagnosis: Cellulitis, CHF, Deep Vein Thrombosis, Compartment Syndrome, Fracture, Sprain, Contusion, Strain, Neurovascular injury, Other (lymphadema, venous insufficiency) X-Ray, Labs, Meds, VS Vital Signs Date Time Temp Pulse Resp B/P (MAP) Pulse Ox O2 Delivery O2 Flow Rate FiO2 06/11/24 13:33 98.9 109 16 174/123 (140) 98 98.9 06/11/24 13:33 109 16 96 Room Air* 0 21 06/11/24 13:25 174/123 06/11/24 13:02 113 06/11/24 12:55 98.3 114 20 193/137 (155) 97 98.3 179/126 (143) Lab Test 06/11/24 13:27 Range/Units White Blood Count 7.2 4.4-10.8 10^3/uL Red Blood Count 5.88 4.5-5.90 10^6/uL Hemoglobin 17.5 13.5-17.5 g/dL Hematocrit 50.9 41.0-53.0 % Mean Corpuscular Volume 86.7 80.0-100.0 fL Mean Corpuscular Hemoglobin 29.7 28.0-32.0 pg Mean Corpuscular Hemoglobin Concent 34.3 32.0-36.0 g/dL Red Cell Distribution Width 13.5 11.8-14.3 % Platelet Count 204 140-450 10^3/uL Mean Platelet Volume 8.0 6.9-10.8 fL Neutrophils (%) (Auto) 53.6 37.0-80.0 % Lymphocytes (%) (Auto) 37.1 10.0-50.0 % Monocytes (%) (Auto) 7.0 0.0-12.0 % Eosinophils (%) (Auto) 1.8 0.0-7.0 % Basophils (%) (Auto) 0.5 0.0-2.0 % Neutrophils # (Auto) 3.8 1.6-8.6 10 ^3/uL Lymphocytes # (Auto) 2.7 0.4-5.4 10 ^3/uL Monocytes # (Auto) 0.5 0-1.3 10 ^3/uL Eosinophils # (Auto) 0.1 0-0.8 10 ^3/uL Basophils # (Auto) 0 0-0.2 10 ^3/uL Nucleated Red Blood Cells 0.2 % D-Dimer, Quantitative 0.22 0.0-0.49 mg/L FEU Sodium Level 138 136-145 mmol/L Potassium Level 4.0 3.5-5.1 mmol/L Chloride Level 106 98-107 mmol/L Carbon Dioxide Level 24 20-31 mmol/L Anion Gap 8 5-15 Blood Urea Nitrogen 10 9-23 mg/dL Creatinine 0.90 0.700-1.30 mg/dL Glomerular Filtration Rate Calc 110 >90 mL/min BUN/Creatinine Ratio 11.1 10.0-20.0 Serum Glucose 105 74-106 mg/dL Calcium Level 10.0 8.7-10.4 mg/dL Total Bilirubin 0.5 0.2-1.0 mg/dL Aspartate Amino Transferase (AST) 17 13-40 U/L Alanine Aminotransferase (ALT) 45 H 7-40 U/L Alkaline Phosphatase 54 46-116 U/L Total Protein 7.3 5.7-8.2 g/dL Albumin 4.8 3.2-4.8 g/dL Current Medications Medications (Trade) Dose Ordered Sig/Martha Route Start Time Stop Time Status Last Admin Clonidine HCl (Catapres Tablet) 0.2 mg ONCE ONCE PO 06/11/24 13:15 06/11/24 13:16 DC 06/11/24 13:25 Rt Lower DVT US:Findings: The common femoral vein demonstrates appropriate compressibility and waveform variability . There is compressibility/patency of the great saphenous vein at the proximal thigh . The femoral vein demonstrates appropriate compressibility and waveform variab ility . The deep femoral vein demonstrates appropriate compressibility and waveform variability . The popliteal vein demonstrates appropriate compressibility and waveform variability . There is color flow in the tibioperoneal trunk and posterior tibial vein. Subcutaneous edema noted in the calf. Impression: 1. No deep venous thrombosis right lower extremity. If clinical conc young/symptoms persist or worsen, short-interval follow-up study is suggested. Time of 1ST Reevaluation: 14:50 Reevaluation 1ST: Unchanged Patient Education/Counseling: Diagnosis, Treatment Family Education/Counseling: No Family Present Additional Information -Reviewed patient's previous visit(s): 05/03/23 for seizure like activity - The following tests were ordered, and results were reviewed by me: UA, D- Dimer, CBC, BMP, Rt Lower DVT US - Additional information was gathered from interviewing the following independent Historian: None - I reviewed and agreed with the following test results read by other provider: Rt Lower DVT US - I discussed treatments and results with medical personnel and: patient Comprehensive systems review obtained and negative except for what is stated in the HPI. Departure 1 Departure Time of Disposition: 18:52 Impression: Primary Impression: Chronic acquired lymphedema Disposition: HOME / SELF CARE / HOMELESS Condition: Good Additional Instructions: elevate the affected leg, wear compression stocking as you have been instructed. wear pants that are loose around the waist Discharged With: Self Critical Care Note Critical Care Time?: No Stability Stability form required: No Heart Score Heart Score: Heart Score Response (Comments) Value History N/A 0 EKG N/A 0 Age N/A 0 Risk Factors N/A 0 Troponin N/A 0 Total 0 I personally scribed for BABAK LY MD ([email or web address]) on 06/11/24 at 14:26. Electronically submitted by Peter Fernández ([email or web address]). BABAK LY MD Jun 11, 2024 14:26
--- NOTE | 2024-06-12 19:11 | ECG ---
[facility]– [place] Test Date: 2024-06-11 Test Time: 13:02:21 Pat Name: MAKENNA ALLRED Department: ED Room: Gender: M Moisture Machine Tender: MARCO A : 1980 Requested By: DEVIN GAITAN Order Number: [id number] Reading MD: Measurements Intervals [place] Rate: 113 P: 40 SC: 165 QRS: 134 QRSD: 111 T: 30 QT: 337 QTc: 462 Interpretive Statements Sinus tachycardia Probable right ventricular hypertrophy Minimal ST elevation, lateral leads Baseline wander in lead(s) I Please click the below link to view image of tracing.
== END 2024-06-11 20:00 | disposition home or self-care (01) ==
LOC: ER 12:45
DX: I89.0 Lymphedema, not elsewhere classified (principal); I10 Essential (primary) hypertension; E78.5 Hyperlipidemia, unspecified; F17.210 Nicotine dependence, cigarettes, uncomplicated; F12.90 Cannabis use, unspecified, uncomplicated
CPT/HCPCS: 36415; 80053; 85025; 85379; 93005; 93971

== ENCOUNTER 2024-08-11 19:30 | Inpatient (IN) | payer OTHER ==
[~2024-08-11] VITALS: Ht 172.7 cm; Wt 125.9 kg
--- NOTE | 2024-08-11 20:07 | ED.PDOC ---
History of Present Illness HPI Comments 43 y/o M is BIBA for 2x day history of bilateral leg swelling. Per EMS report, patient has a history of cellulitis, pancreatitis, polysubstance abuse, HLD and HTN and endorses on progressively worsening symptoms following initial gradual onset. Patient reports on pain to his left leg. He denies any chest pain, shortness of breath, skin discoloration, fever, chills, or further associated symptoms. Vitals were noted to have within normal limits, with exception of a systolic pressure within the 200's range. Chief Complaint: Lower Extremity Time Seen by MD: 19:30 Primary Care Provider: NONE Reviewed Notes: Nurses Notes, Fleet Administrative Assistant Notes, Medications, Allergies Allergies: Coded Allergies: NO KNOWN ALLERGIES (Unverified , 07/22/21) Home Meds Active Scripts Hydrocodone-Acetaminophen (Hydrocodone Bitartrate/AC 10-325 mg) 1 Tab Tab, 1 TAB PO Q6HP PRN for 5 Days, #20 TAB Prov:ECTOR SEAMAN UNIFIED COMMUNICATIONS ARCHITECT 12/15/22 Sulfamethoxazole W/Trimethopri (Bactrim Ds Tablet) 1 Tab Tb, 1 TAB PO BID for 14 Days, #28 TAB Prov:ECTOR SEAMAN UNIFIED COMMUNICATIONS ARCHITECT 12/15/22 Information Source: Patient, Emergency Med Personnel Mode of Arrival: EMS Severity: Moderate Timing: Hours Duration: Since onset Prehospital treatment: None Past Medical History PAST MEDICAL HISTORY: High Lipids, HTN Past Medical History (Other): cellulitis pancreatitis Surgical History: Cholecystectomy Family History Family History: No family hx of Cancer, No family hx of DM, No family hx of Heart bro Social History Smoker: Cigarettes Alcohol: Denies ETOH Use Drugs: Marijuana, Methamphetamine Lives In: Home All Other Systems: Reviewed and Negative (Comprehensive systems review obtained and negative except for what is stated in the HPI.) Physical Exam General Appearance: No Apparent Distress, Normal HEENT: Normal ENT Inspection, Pharynx Normal, TMs Normal Neck: Full Range of Motion, Non-Tender, Normal, Normal Inspection Respiratory: Chest Non-Tender, Lungs Clear, No Accessory Muscle Use, No Respiratory Distress, Normal Breath Sounds Cardiovascular: No Edema, No JVD, No Murmur, No Gallop, Normal Peripheral Pulses, Regular Rate/Rhythm Breast Exam: Deferred Gastrointestinal: No Organomegaly, Non Tender, No Pulsatile Mass, Normal Bowel Sounds, Soft Genitalia: Deferred Pelvic: Deferred Rectal: Deferred Extremities: Leg edema (bilateral lower extremities ), No calf tenderness, Normal capillary refill, Normal range of motion, No pedal edema, Tender (left lower extremity ), Other (left lower extremity is warm) Musculoskeletal : Apperance: Normal Neurologic: Alert, sql server dba developer II-XII nml as Tested, No Motor Deficits, Normal Affect, Normal Mood, No Sensory Deficits Cerebellar Function: Normal Reflexes: Normal Skin: Dry, Normal Color, Warm Lymphatic: No Adenopathy Was a procedure done? Was a procedure done?: No EKG EKG : Pulse Rate (adult): 95 Spring: Normal Cardiac Rhythm: NSR Block: None Hypertrophy: None ST: Normal Differential Dx Considerations may include: Cellulitis, dermatitis, DVTs, fluid retention, new onset of heart failure, among others X-Ray, Labs, Meds, VS Vital Signs Date Time Temp Pulse Resp B/P (MAP) Pulse Ox O2 Delivery O2 Flow Rate FiO2 08/11/24 20:35 98.6 129 25 192/115 (140) 97 98.6 08/11/24 20:21 95 08/11/24 19:48 98.6 121 16 199/146 (163) 97 98.6 Lab Test 08/11/24 20:11 Range/Units White Blood Count 13.0 H 4.4-10.8 10^3/uL Red Blood Count 4.97 4.5-5.90 10^6/uL Hemoglobin 14.5 13.5-17.5 g/dL Hematocrit 42.3 41.0-53.0 % Mean Corpuscular Volume 85.1 80.0-100.0 fL Mean Corpuscular Hemoglobin 29.3 28.0-32.0 pg Mean Corpuscular Hemoglobin Concent 34.4 32.0-36.0 g/dL Red Cell Distribution Width 13.9 11.8-14.3 % Platelet Count 194 140-450 10^3/uL Mean Platelet Volume 7.9 6.9-10.8 fL Neutrophils (%) (Auto) 78.4 37.0-80.0 % Lymphocytes (%) (Auto) 12.3 10.0-50.0 % Monocytes (%) (Auto) 7.8 0.0-12.0 % Eosinophils (%) (Auto) 1.0 0.0-7.0 % Basophils (%) (Auto) 0.5 0.0-2.0 % Neutrophils # (Auto) 10.2 H 1.6-8.6 10 ^3/uL Lymphocytes # (Auto) 1.6 0.4-5.4 10 ^3/uL Monocytes # (Auto) 1.0 0-1.3 10 ^3/uL Eosinophils # (Auto) 0.1 0-0.8 10 ^3/uL Basophils # (Auto) 0.1 0-0.2 10 ^3/uL Nucleated Red Blood Cells 0.0 % D-Dimer, Quantitative 0.44 0.0-0.49 mg/L FEU Sodium Level 139 136-145 mmol/L Potassium Level 4.2 3.5-5.1 mmol/L Chloride Level 106 98-107 mmol/L Carbon Dioxide Level 24 20-31 mmol/L Anion Gap 9 5-15 Blood Urea Nitrogen 12 9-23 mg/dL Creatinine 1.15 0.700-1.30 mg/dL Glomerular Filtration Rate Calc 82 >90 mL/min BUN/Creatinine Ratio 10.4 10.0-20.0 Serum Glucose 137 H 74-106 mg/dL Lactic Acid Level 1.7 0.4-2.0 mmol/L Calcium Level 9.3 8.7-10.4 mg/dL Current Medications Medications (Trade) Dose Ordered Sig/Martha Route Start Time Stop Time Status Last Admin Acetaminophen (Tylenol Tablet) 650 mg Q6HP PRN PO 08/11/24 21:45 08/11/24 22:55 Morphine Sulfate 2 mg Q4HPRN PRN IV 08/11/24 21:45 08/11/24 22:57 Time of 1ST Reevaluation: 20:00 Reevaluation 1ST: Unchanged Patient Education/Counseling: Diagnosis, Treatment, Other (Need for admission) Family Education/Counseling: No Family Present Additional Information Previous visits reviewed: December 12, 2022 and June 11, 2024 encounters for cellulitis of lower extremity and chronic acquired lymphedema, respectively The following tests were ordered, and results were reviewed by me: D-dimer, blood culture, lactic acid with reflex, BNP, CBC, left lower extremity DVT ultrasound, and chest x-ray Additional Information was gathered from interviewing the following independent historians: EMS I reviewed and agreed with the following test results read by other providers: left lower extremity DVT ultrasound, and chest x-ray I discussed treatment and results with medical personnel and: patient SEPSIS Sepsis Screen Date sepsis recognized/suspect: Aug 11, 2024 Time Sepsis recognized/suspect: 1949 Recent Procedure: No On Antibiotic Therapy: No Respiratory Rate >20: No Heart Rate >90: Yes Temp<36 C (96.8 F) or >38.3 C: No SBP <90 or MAP <65 mmHG: No New Acute Mental Status Change: No Is the patient on CPAP, BIPAP,: No IV fluid challenge completed?: No SEPSIS EXCLUSION NOTE: Patient initially presented with cellulitis but does not septic. Patient also has volume overloaded so we will not give patient a fluid bolus. Your several hours in the ER patient finally became febrile and labs came back concerning for sepsis. Patient was ordered for antibiotics and will be admitted to the hospital Physician Orders Chest Portable (08/11/24 19:36) Blood Culture (08/11/24 19:36) Lt Lower Dvt (08/11/24 19:36) Vital Signs Date Time Temp Pulse Resp B/P (MAP) Pulse Ox O2 Delivery O2 Flow Rate FiO2 08/11/24 20:35 98.6 129 25 192/115 (140) 97 98.6 08/11/24 20:21 95 08/11/24 19:48 98.6 121 16 199/146 (163) 97 98.6 Laboratory Tests Test 08/11/24 20:11 Lactic Acid Level 1.7 mmol/L (0.4-2.0) White Blood Count 13.0 10^3/uL (4.4-10.8) H Medications Medications Dose Ordered Sig/Martha Route Start Time Stop Time Status Last Admin Dose Admin Acetaminophen 650 mg Q6HP PRN PO 08/11/24 21:45 08/11/24 22:55 Morphine Sulfate 2 mg Q4HPRN PRN IV 08/11/24 21:45 08/11/24 22:57 Departure 1 Departure Time of Disposition: 23:36 (Patient with concern for worsening cellulitis. We will admit patient for further workup and expert consultation) Impression: Primary Impression: Cellulitis of left lower extremity Disposition: ADMITTED INPATIENT Admit to: Med Surg Condition: Serious Critical Care Note Critical Care Time?: No Stability Stability form required: No Heart Score Heart Score: Heart Score Response (Comments) Value History N/A 0 EKG N/A 0 Age N/A 0 Risk Factors N/A 0 Troponin N/A 0 Total 0 I personally scribed for WARREN OTERO MD ([email or web address]) on 08/11/24 at 20:07. Electronically submitted by Kodak Calderón ([email or web address]). I personally scribed for WARREN OTERO MD ([email or web address]) on 08/11/24 at 20:21. Electronically submitted by Kodak Calderón ([email or web address]). WARREN OTERO MD Aug 11, 2024 20:07
[2024-08-11 20:30] LABS: Hematocrit 42.3 % (41.0-53.0); Hemoglobin 14.5 g/dL (13.5-17.5); Mean Corpuscular Hemoglobin 29.3 pg (28.0-32.0); Mean Corpuscular Volume 85.1 fL (80.0-100.0); Nucleated Red Blood Cells % 0.0 %
[2024-08-11 20:34] LABS: Chloride 106 mmol/L (98-107); Potassium 4.2 mmol/L (3.5-5.1); Sodium 139 mmol/L (136-145)
[2024-08-11 20:35] LABS: Anion Gap 9 (5-15); Calcium 9.3 mg/dL (8.7-10.4); Carbon Dioxide 24 mmol/L (20-31)
[2024-08-11 20:40] LABS: BUN/Creatinine Ratio 10.4 (10.0-20.0); Blood Urea Nitrogen 12 mg/dL (9-23)
[2024-08-11 20:50] LABS: Glucose 137 mg/dL (74-106)
--- NOTE | 2024-08-11 21:15 | DVH ---
Clinical History: LLE Swelling, erythema, and tenderness Comparison: US RT LOWER DVT on DOS: 06/11/24, US RT LOWER DVT on DOS: 12/12/22 Technique: Duplex Doppler evaluation of the deep venous system of the left lower extremity from the common femor al vein to the popliteal vein including color Doppler and spectral/pulsed waveform analysis was perfo rmed. Findings: Nonvisualization of the common femoral vein saphenous vein or proximal femoral vein. The femoral vein demonstrates mid appears normal with normal color flow compressibility and phasicity . The deep femoral vein demonstrates appropriate compressibility and waveform variability. The popliteal vein demonstrates appropriate compressibility and waveform variability. Left proximal tibial vein is not visualized. Impression: 1. Common femoral vein saphenous vein proximal superficial femoral vein were not visualized because o f patient's inability to take their pants all. 2. Mid superficial femoral vein and popliteal vein and trifurcation appeared normal 3. If clinical concern/symptoms persist or worsen, short-interval follow-up study is suggested.
--- NOTE | 2024-08-11 21:32 | DVH ---
CHEST RADIOGRAPH Indication: weakness Technique: Single frontal view of the chest was obtained Comparison: XY CHEST PORTABLE on DOS: 01/26/23, CXRP on DOS: 12/29/21, CHEST PORTABLE on DOS: 12/29/21 FINDINGS: Lines and Tubes: None Lungs: No focal consolidation. Pleura: No effusion. No pneumothorax. Cardiomediastinal contours: Unremarkable Bones: No acute osseous abnormality. IMPRESSION: 1. No acute cardiopulmonary disease.
[2024-08-11] MEDS ORDERED: DOCUSATE SOD 100 MG CAP PO PRN (21:45)
[2024-08-11] MEDS ORDERED: MORPHINE SULFATE 4 MG/ML SYR/VIAL IV PRN (21:45)
[2024-08-11] MEDS ORDERED: TEMAZEPAM 15 MG CAP PO PRN (21:45)
[2024-08-11] MEDS ORDERED: NITROGLYCERIN 0.4 MG SL TAB SL PRN (21:45)
--- NOTE | 2024-08-11 21:49 | DVHHP2 ---
Admitting Diagnosis: Bilateral Leg Swelling History of Present Illness Patient is a 43 y/o male with bilateral leg swelling x 2 days. Patient states that he has a PMHx of cellulitis, HLD, HTN, polysubstance abuse and pancreatitis. Patient states that he is also having LT-leg pain but denies any CP, SOB and N/V/D. Patient states that symptoms have become worse. While in the emergency department the patient was evaluated by the provider, Labs, vital signs, and imagining monitored. Patient will be admitted for further evaluation and treatment. I discussed admission with the patient/family and is in agreement to treatment plan. Patient Family History: Alcoholism G8 MOTHER, Onset:Unknown Allergies: Coded Allergies: NO KNOWN ALLERGIES (Unverified , 07/22/21) Home Meds Active Scripts Hydrocodone-Acetaminophen (Hydrocodone Bitartrate/AC 10-325 mg) 1 Tab Tab, 1 TAB PO Q6HP PRN for 5 Days, #20 TAB Prov:ECTOR SEAMAN PRINCIPAL SOFTWARE ENGINEER 12/15/22 Sulfamethoxazole W/Trimethopri (Bactrim Ds Tablet) 1 Tab Tb, 1 TAB PO BID for 14 Days, #28 TAB Prov:ECTOR SEAMAN PRINCIPAL SOFTWARE ENGINEER 12/15/22 Current Medications Current Medications Medications (Trade) Dose Ordered Sig/Martha Route PRN Reason Start Time Stop Time Status Last Admin Acetaminophen/ Hydrocodone Bitart ([place] 5/325MG Tab) 1 tab Q4HP PRN PO MODERATE PAIN (4-6 PAIN SCALE) 08/11/24 21:45 Temazepam (Restoril) 15 mg QHSP PRN PO FOR INSOMNIA 08/11/24 21:45 Docusate Sodium (Colace Capsule) 100 mg BIDPRN PRN PO FOR CONSTIPATION 08/11/24 21:45 Enoxaparin Sodium (Lovenox) 40 mg DAILY SC 08/12/24 10:00 08/12/24 09:54 Acetaminophen (Tylenol Tablet) 650 mg Q6HP PRN PO PAIN SCALE 1-3 OR TEMP>100.4 08/11/24 21:45 08/12/24 16:04 Morphine Sulfate 2 mg Q4HPRN PRN IV SEVERE PAIN (7-10 PAIN SCALE) 08/11/24 21:45 08/12/24 14:26 Piperacillin Sod/ Tazobactam Sod 100 ml @ 100 mls/hr Q8HR IV 08/11/24 22:00 08/12/24 16:03 Nitroglycerin (Ntrostat Sublingual) 0.4 mg Q5MINP PRN SL FOR CHEST PAIN 08/11/24 21:45 Morphine Sulfate 2 mg Q30M PRN IV FOR CHEST PAIN 08/11/24 21:45 Hydralazine HCl (Apresoline Injection) 10 mg Q6HP PRN IV SBP>150 08/11/24 22:00 08/12/24 01:04 Famotidine (Pepcid Tablet) 20 mg BID PO 08/11/24 22:00 08/12/24 09:54 Vancomycin HCl 0 ml @ 0 mls/hr UD IV 08/12/24 01:00 Vancomycin HCl 200 ml @ 200 mls/hr Q1H IV 08/12/24 01:15 08/12/24 03:14 DC 08/12/24 02:36 Vancomycin HCl 150 ml @ 150 mls/hr Q8H IV 08/12/24 13:00 08/12/24 14:26 Metoprolol Tartrate (Lopressor Tablet) 50 mg BID PO 08/12/24 13:45 08/12/24 16:04 Losartan Potassium (Cozaar Tablet) 50 mg BID PO 08/12/24 13:45 08/12/24 16:05 Review of Systems Constitutional: denies chills, denies fever, denies malaise Eyes: denies eye pain, denies vision change ENT: denies ear pain, denies headache, denies nasal congestion, denies painful swallowing, denies voice change Cardiovascular: denies chest pain, denies edema, denies orthopnea, denies palpitations, denies paroxysmal nocturnal dyspnea Respiratory: denies cough, denies shortness of breath Gastrointestinal: denies constipation, denies diarrhea, denies nausea, denies vomiting Genitourinary: denies dysuria, denies frequent urination, denies urethral discharge Musculoskeletal: denies back pain, denies joint pain, denies muscle pain Skin: denies bruising, denies itching, denies rash Neurological: denies focal weakness, denies headache, denies sensory changes Psychiatric: denies anxiety, denies depression Endocrine: denies polydipsia, denies polyuria Hematologic/Lymphatic: denies easy bleeding, denies easy bruising, denies enlarged lymph nodes Allergic/Immunologic: denies allergy, denies hives Vital Signs Vital Signs Date Time Temp Pulse Resp B/P (MAP) Pulse Ox O2 Delivery O2 Flow Rate FiO2 08/12/24 16:05 136/95 08/12/24 16:04 112 08/12/24 16:04 101.4 08/12/24 14:56 24 08/12/24 14:03 95 08/12/24 09:57 Nasal Cannula* 2 28 Physical Exam General Appearance: alert, no distress HEENT: EOMI, PERRLA, normal external inspect of ears, no icterus, no nasal drainage Neck: no carotid bruit, no jugular venous distention (JVD), no lymphadenopathy Chest: normal thorax Respiratory: clear to auscultation, normal air movement Cardiovascular: regular rate and rhythm, no diastolic murmur, no jugular venous distention (JVD), no rub, no systolic murmur Abdominal: soft, no hepatomegaly, no mass, no splenomegaly, no tenderness Genitourinary: grossly normal external Musculoskeletal: no joint tenderness, no swelling Extremities: normal pulses, no calf tenderness, no clubbing, no cyanosis Skin: no bruising, no jaundice, no rash Neurological: alert, No focal deficit Results Labs Test 08/12/24 11:31 08/12/24 04:09 08/11/24 20:11 Range/Units Random Vancomycin Level 6.8 5-10 ug/mL White Blood Count 14.5 H 4.4-10.8 10^3/uL Red Blood Count 4.83 4.5-5.90 10^6/uL Hemoglobin 14.1 13.5-17.5 g/dL Hematocrit 41.0 41.0-53.0 % Mean Corpuscular Volume 85.0 80.0-100.0 fL Mean Corpuscular Hemoglobin 29.2 28.0-32.0 pg Mean Corpuscular Hemoglobin Concent 34.4 32.0-36.0 g/dL Red Cell Distribution Width 13.8 11.8-14.3 % Platelet Count 163 140-450 10^3/uL Mean Platelet Volume 7.7 6.9-10.8 fL Neutrophils (%) (Auto) 85.4 H 37.0-80.0 % Lymphocytes (%) (Auto) 8.1 L 10.0-50.0 % Monocytes (%) (Auto) 6.2 0.0-12.0 % Eosinophils (%) (Auto) 0.0 0.0-7.0 % Basophils (%) (Auto) 0.3 0.0-2.0 % Neutrophils # (Auto) 12.4 H 1.6-8.6 10 ^3/uL Lymphocytes # (Auto) 1.2 0.4-5.4 10 ^3/uL Monocytes # (Auto) 0.9 0-1.3 10 ^3/uL Eosinophils # (Auto) 0 0-0.8 10 ^3/uL Basophils # (Auto) 0 0-0.2 10 ^3/uL Nucleated Red Blood Cells 0.0 % Sodium Level 136 136-145 mmol/L Potassium Level 3.7 3.5-5.1 mmol/L Chloride Level 104 98-107 mmol/L Carbon Dioxide Level 24 20-31 mmol/L Anion Gap 8 5-15 Blood Urea Nitrogen 10 9-23 mg/dL Creatinine 1.01 0.700-1.30 mg/dL Glomerular Filtration Rate Calc 96 >90 mL/min BUN/Creatinine Ratio 9.9 L 10.0-20.0 Serum Glucose 140 H 74-106 mg/dL Hemoglobin A1c 5.8 H <5.7 % A1C Calcium Level 8.5 L 8.7-10.4 mg/dL Total Bilirubin 1.1 H 0.2-1.0 mg/dL Aspartate Amino Transferase (AST) 19 <34 U/L Alanine Aminotransferase (ALT) 33 7-40 U/L Alkaline Phosphatase 50 46-116 U/L B-Type Natriuretic Peptide 52.55 0-100 pg/mL Total Protein 6.4 5.7-8.2 g/dL Albumin 4.1 3.2-4.8 g/dL Triglycerides Level 59 < 150 mg/dL Cholesterol Level 134 < 200 mg/dL LDL Cholesterol 90 < 100 mg/dL HDL Cholesterol 42 40-59 mg/dL D-Dimer, Quantitative 0.44 0.0-0.49 mg/L FEU Lactic Acid Level 1.7 0.4-2.0 mmol/L Admitting Diagnosis: 1. Sepsis Cardiology consult, cardiac diet 2. BLE Cellulitis IV abx 3. Obesity Diet education, monitoring 4. Benign essential HTN Antihypertensives 5. Hx polysubstance abuse Urinalysis Plan discussed with: Patient, Other ECTOR SEAMAN PRINCIPAL SOFTWARE ENGINEER Aug 11, 2024 21:49
--- NOTE | 2024-08-11 21:51 | DVHHP2 ---
Patient Family History: Alcoholism G8 MOTHER, Onset:Unknown Allergies: Coded Allergies: NO KNOWN ALLERGIES (Unverified , 07/22/21) Home Meds Active Scripts Hydrocodone-Acetaminophen (Hydrocodone Bitartrate/AC 10-325 mg) 1 Tab Tab, 1 TAB PO Q6HP PRN for 5 Days, #20 TAB Prov:ECTOR SEAMAN SUPERVISING LAW ENFORCEMENT ANALYST 12/15/22 Sulfamethoxazole W/Trimethopri (Bactrim Ds Tablet) 1 Tab Tb, 1 TAB PO BID for 14 Days, #28 TAB Prov:ECTOR SEAMAN SUPERVISING LAW ENFORCEMENT ANALYST 12/15/22 Vital Signs Vital Signs Date Time Temp Pulse Resp B/P (MAP) Pulse Ox O2 Delivery O2 Flow Rate FiO2 08/11/24 20:35 98.6 129 25 192/115 (140) 97 98.6 Results Labs Test 08/11/24 20:11 Range/Units White Blood Count 13.0 H 4.4-10.8 10^3/uL Red Blood Count 4.97 4.5-5.90 10^6/uL Hemoglobin 14.5 13.5-17.5 g/dL Hematocrit 42.3 41.0-53.0 % Mean Corpuscular Volume 85.1 80.0-100.0 fL Mean Corpuscular Hemoglobin 29.3 28.0-32.0 pg Mean Corpuscular Hemoglobin Concent 34.4 32.0-36.0 g/dL Red Cell Distribution Width 13.9 11.8-14.3 % Platelet Count 194 140-450 10^3/uL Mean Platelet Volume 7.9 6.9-10.8 fL Neutrophils (%) (Auto) 78.4 37.0-80.0 % Lymphocytes (%) (Auto) 12.3 10.0-50.0 % Monocytes (%) (Auto) 7.8 0.0-12.0 % Eosinophils (%) (Auto) 1.0 0.0-7.0 % Basophils (%) (Auto) 0.5 0.0-2.0 % Neutrophils # (Auto) 10.2 H 1.6-8.6 10 ^3/uL Lymphocytes # (Auto) 1.6 0.4-5.4 10 ^3/uL Monocytes # (Auto) 1.0 0-1.3 10 ^3/uL Eosinophils # (Auto) 0.1 0-0.8 10 ^3/uL Basophils # (Auto) 0.1 0-0.2 10 ^3/uL Nucleated Red Blood Cells 0.0 % D-Dimer, Quantitative 0.44 0.0-0.49 mg/L FEU Sodium Level 139 136-145 mmol/L Potassium Level 4.2 3.5-5.1 mmol/L Chloride Level 106 98-107 mmol/L Carbon Dioxide Level 24 20-31 mmol/L Anion Gap 9 5-15 Blood Urea Nitrogen 12 9-23 mg/dL Creatinine 1.15 0.700-1.30 mg/dL Glomerular Filtration Rate Calc 82 >90 mL/min BUN/Creatinine Ratio 10.4 10.0-20.0 Serum Glucose 137 H 74-106 mg/dL Lactic Acid Level 1.7 0.4-2.0 mmol/L Calcium Level 9.3 8.7-10.4 mg/dL ECTOR SEAMAN NP Aug 11, 2024 21:51
[2024-08-11] MEDS: PIPERACILLIN-TAZOB 3.375GM 100 ML IV SCH (22:55)
[2024-08-11] MEDS: ACETAMINOPHEN 325 MG TAB PO PRN (22:55)
[2024-08-11] MEDS: FAMOTIDINE 20 MG TAB PO SCH (22:56)
[2024-08-11] MEDS: MORPHINE SULFATE 4 MG/ML SYR/VIAL IV PRN (22:57)
[2024-08-11 23:05] VITALS: PULSE 129; RESP 25; O2SAT 97
[2024-08-12] VITALS (8 sets, daily range): BP systolic 119–146; BP diastolic 46–95; PULSE 61–129; RESP 18–26; TEMP 97.5–101.4; O2SAT 94–100
[2024-08-12] MEDS: SODIUM CHLORIDE 0.9% 1,000 ML IV ONE ×2 (00:36)
[2024-08-12] MEDS ORDERED: VANCOMYCIN PER PHARMACY 0 MG IV SCH (01:00)
[2024-08-12] MEDS: hydrALAZINE HCL 20 MG/ML VL IV PRN (01:04)
[2024-08-12 04:31] LABS: Hematocrit 41.0 % (41.0-53.0); Hemoglobin 14.1 g/dL (13.5-17.5); Mean Corpuscular Hemoglobin 29.2 pg (28.0-32.0); Mean Corpuscular Volume 85.0 fL (80.0-100.0); Nucleated Red Blood Cells % 0.0 %
[2024-08-12 04:42] LABS: Alanine Aminotransferase 33 U/L (7-40); Albumin 4.1 g/dL (3.2-4.8); Alkaline Phosphatase 50 U/L (46-116); Anion Gap 8 (5-15); BUN/Creatinine Ratio 9.9 (10.0-20.0); Bilirubin, Total 1.1 mg/dL (0.2-1.0); Blood Urea Nitrogen 10 mg/dL (9-23); Carbon Dioxide 24 mmol/L (20-31); Chloride 104 mmol/L (98-107); Potassium 3.7 mmol/L (3.5-5.1); Total Protein 6.4 g/dL (5.7-8.2)
[2024-08-12 04:47] LABS: Calcium 8.5 mg/dL (8.7-10.4); Glucose 140 mg/dL (74-106); Sodium 136 mmol/L (136-145)
[2024-08-12] MEDS: ENOXAPARIN SOD 40 MG/0.4 ML SYRINGE SC SCH (09:54)
--- NOTE | 2024-08-12 13:49 | DVHPN2 ---
Progress Note - Dictate Date Seen: Aug 12, 2024 Medical Necessity Reason Pt with a Central, PICC or Fol: No vital signs Vital Sign Date Time Temp Pulse Resp B/P (MAP) Pulse Ox O2 Delivery O2 Flow Rate FiO2 08/12/24 11:30 110 28 131/74 (93) 98 08/12/24 09:57 Nasal Cannula* 2 28 08/12/24 07:30 98.2 98.2 Total Intake and Output 08/11/24 08/11/24 08/12/24 15:00 23:00 07:00 Intake Total 1900 ml Balance 1900 ml medications Current Medications Medications Dose Ordered Sig/Martha Route Start Time Stop Time Status Last Admin Dose Admin Acetaminophen/ Hydrocodone Bitart 1 tab Q4HP PRN PO 08/11/24 21:45 Temazepam 15 mg QHSP PRN PO 08/11/24 21:45 Docusate Sodium 100 mg BIDPRN PRN PO 08/11/24 21:45 Enoxaparin Sodium 40 mg DAILY SC 08/12/24 10:00 08/12/24 09:54 40 MG Acetaminophen 650 mg Q6HP PRN PO 08/11/24 21:45 08/11/24 22:55 650 MG Morphine Sulfate 2 mg Q4HPRN PRN IV 08/11/24 21:45 08/12/24 09:47 2 MG Piperacillin Sod/ Tazobactam Sod 100 ml @ 100 mls/hr Q8HR IV 08/11/24 22:00 08/12/24 05:46 100 MLS/HR Nitroglycerin 0.4 mg Q5MINP PRN SL 08/11/24 21:45 Morphine Sulfate 2 mg Q30M PRN IV 08/11/24 21:45 Hydralazine HCl 10 mg Q6HP PRN IV 08/11/24 22:00 08/12/24 01:04 10 MG Famotidine 20 mg BID PO 08/11/24 22:00 08/12/24 09:54 20 MG Vancomycin HCl 0 ml @ 0 mls/hr UD IV 08/12/24 01:00 Vancomycin HCl 150 ml @ 150 mls/hr Q8H IV 08/12/24 13:00 Metoprolol Tartrate 50 mg BID PO 08/12/24 13:45 UNV Losartan Potassium 50 mg BID PO 08/12/24 13:45 UNV objective General Appearance: alert, no distress HEENT: EOMI, PERRLA, normal external inspect of ears, no icterus, no nasal drainage Neck: no carotid bruit, no jugular venous distention (JVD), no lymphadenopathy Chest: normal thorax Respiratory: clear to auscultation, normal air movement Cardiovascular: regular rate and rhythm, no diastolic murmur, no jugular venous distention (JVD), no rub, no systolic murmur Abdominal: soft, no hepatomegaly, no mass, no splenomegaly, no tenderness Genitourinary: grossly normal external Musculoskeletal: no joint tenderness, no swelling Extremities: normal pulses, no calf tenderness, no clubbing, no cyanosis Skin: no bruising, no jaundice, no rash Neurological: alert, No focal deficit laboratory and microbiology Laboratory Tests 08/12/24 04:09 Test 08/12/24 04:09 Range/Units Serum Glucose 140 H 74-106 mg/dL Problem List 1. Sepsis Cardiology consult, cardiac diet 2. BLE Cellulitis IV abx 3. Obesity Diet education, monitoring 4. Benign essential HTN Antihypertensives 5. Hx polysubstance abuse Urinalysis Assessment/Plan Subjective: Patient is awake and alert. Objective: Patient is somewhat short of breath. Patient was admitted for sepsis. Patient has bilateral lower extremity cellulitis. Patient also has a history of polysubstance abuse. Plan: Continue antibiotics. Obtain echocardiogram and cardiology consult to rule out CHF. Start breathing treatments and obtain urine drug screen. Plan discussed with: Patient, Other ECTOR SEAMAN NP Aug 12, 2024 13:49
[2024-08-12 14:11] LABS: Triglycerides 59 mg/dL (< 150)
[2024-08-12 14:13] LABS: Cholesterol 134 mg/dL (< 200); HDL Cholesterol 42 mg/dL (40-59)
[2024-08-12] MEDS: VANCOMYCIN 750mg/150ml 150 ML IV SCH (14:26)
[2024-08-12] MEDS: METOPROLOL TARTRATE 50 MG TAB PO SCH (16:04)
[2024-08-12] MEDS: LOSARTAN POTASSIUM 50 MG TAB PO SCH (16:05)
[2024-08-12] MEDS: HYDROcodone-ACET 5/325MG TAB PO PRN (22:42)
[2024-08-13] VITALS (8 sets, daily range): BP systolic 102–129; BP diastolic 55–85; PULSE 80–103; RESP 17–22; TEMP 97.5–98.7; O2SAT 94–99
[2024-08-13 00:16] LABS: Cannabinoid Screen, Urine Neg (NEGATIVE); Opiate Scree,Urine Pos (NEGATIVE); Phencyclidine Screen, Urine Neg (NEGATIVE)
[2024-08-13 00:17] LABS: Urine Protein, UAD TRACE (Negative)
[2024-08-13 00:18] LABS: Amphetamine Screen, Urine Pos (NEGATIVE); Barbiturate Scree,Urine Neg (NEGATIVE); Benzodiazephine Screen, Urine Neg (NEGATIVE); Cocaine Screen, Urine Neg (NEGATIVE)
--- NOTE | 2024-08-13 05:53 | DVHSR ---
APPROVED REPORT EXAM: Two-dimensional and M-mode echocardiogram with Doppler and color Doppler. Blood Pressure: 131/74 mmHg INDICATION EVAL RISK FACTORS Height: 68, Weight: 199 DIMENSIONS LVDd5.3 (3.8-5.7cm)LA (2D)4.4 (1.9-4.0cm)Aortic Root4.1 (2.0-3.7cm) LVDs3.6 (2.5-4.0cm)LA (MM) (1.9-4.0cm)Aortic Cusp Exc2.5 (1.5-2.0cm) EF (%) 61.0 (55-70%)Rt. Atrium4.7 (1.9-4.0cm)Asc. Aorta cm IVSd1.3 (0.7-1.1cm)RV (D) (1.8-2.4cm) PWd1.7 (0.7-1.1cm) Mitral Valve MitralMitral Stenosis E wave1.02m/sMV Mean GR.mmHg A wave1.31m/sMV Peak GR.mmHg E/A ratio0.82D MVAcm2 DECEL [id number] 1/2 Timems Aortic Valve Aortic ValveAortic Stenosis V11.47m/Larisa Mean GR.7mmHg V21.72m/Larisa Peak GR.12mmHg LVOT Diameter2.5 (1.8-2.4cm)Doppler AVA4.19cm2 Pulmonic Valve V21.24m/s Other Information Technically limited study due to body habitus and patient position. Conclusion Left ventricle: Mild concentric left ventricular hypertrophy was seen. LVEF was around 60-65%. The re was no gross wall motion abnormality. Right ventricle: Right ventricle was dilated with preserved systolic function. Left atrium was mild ly dilated. Right atrium was dilated. Aortic valve: Aortic valve was not well visualized. There was no aortic insufficiency/stenosis. The re was no mitral/tricuspid regurgitation. There was trace pulmonary valve insufficiency. As there was no good tricuspid regurgitation jet, right ventricular systolic pressure could not be es timated.
--- NOTE | 2024-08-13 06:39 | DVHINCON2 ---
Date of service: Aug 13, 2024 History of Present Illness HPI Patient is a 43-year-old gentleman who presented with weeks of worsening leg swellings which has slowly worsened. On arrival blood pressure was high and in 200s. Cardiology was involved to rule out heart failure. Patient himself denies any previous cardiac history. Patient himself denies any previous cardiac evaluation. Patient denies any chest pains. Patient mentions bilateral leg swellings which started around 1 year back. Does complain of exertional dyspnea. Denies PND. Complains of orthopnea. Does use methamphetamine regularly. Denies loss of consciousness. Denies palpitations. Home Meds Active Scripts Hydrocodone-Acetaminophen (Hydrocodone Bitartrate/AC 10-325 mg) 1 Tab Tab, 1 TAB PO Q6HP PRN for 5 Days, #20 TAB Prov:ECTOR SEAAMN MILLER FIRST 12/15/22 Sulfamethoxazole W/Trimethopri (Bactrim Ds Tablet) 1 Tab Tb, 1 TAB PO BID for 14 Days, #28 TAB Prov:ECTOR SEAMAN MILLER FIRST 12/15/22 Past Medical History Others Past medical history includes obesity, hypertension hyperlipidemia, history of cellulitis of lower extremity, old history of pancreatitis, history of polys ubstance abuse and old history of cholecystectomy. He smokes cigarettes and uses marijuana and methamphetamine. Patient Family History: Alcoholism G8 MOTHER, Onset:Unknown Smoker: Positive Alocohol: None Drugs: Marijuana, Amphetimines Review of Systems Constitutional: Weakness Ears, Nose, & Throat: No symptom reported Pulmonary/Respiratory: Dyspnea All Other Systems Fourteen point review of system was performed. Relevant findings as per above and as per HPI. Otherwise negative. H&P Exam Vital Signs Vital Signs Date Time Temp Pulse Resp B/P (MAP) Pulse Ox O2 Delivery O2 Flow Rate FiO2 08/13/24 05:00 98.7 80 18 102/60 (74) 95 98.7 08/12/24 20:00 Nasal Cannula* 3 32 General Appeara: Well developed, Obese Head Exam: Normal inspection Eye Exam: bilateral eye PERRL Pulmonary/Respiratory: Rhonci Cardiovascular/Chest: Edema, Regular rate Peripheral Pulses: 2+ carotid (R), 2+ carotid (L), 2+ femoral (R), 2+ femoral (L) Abdominal Exam: Normal bowel sounds, Soft Neuro/Mental St: Alert, Oriented Appearance: Appropriate appearance Eye contact/ Speech: Cooperative Labs/Xrays Labs Test 08/12/24 13:45 08/12/24 13:42 08/12/24 11:31 08/12/24 04:09 Range/Units Urine Color Yellow Yellow Urine Clarity Clear Clear Urine pH 5.5 5.0-9.0 Urine Specific [place] 1.028 1.001-1.035 Urine Protein Trace H Negative Urine Ketones Trace Negative Urine Blood Trace H Negative /uL Urine Nitrite Negative Negative Urine Bilirubin Negative Negative Urine Urobilinogen Normal Negative mg/dL Urine Leukocyte Esterase Negative Negative /uL Urine RBC 4 0 - 3 /hpf Urine Microscopic WBC 2 0-3 /HPF Urine Squamous Epithelial Cells Few <5 /hpf Urine Bacteria None seen None Seen /hpf Urine Glucose Normal Normal mg/dL Urine Opiates Screen Pos NEGATIVE Urine Fentanyl Screen Neg NEGATIVE Urine Barbiturates Screen Neg NEGATIVE Urine Phencyclidine Screen Neg NEGATIVE Urine Amphetamines Screen Pos NEGATIVE Urine Benzodiazepines Screen Neg NEGATIVE Urine Cocaine Screen Neg NEGATIVE Urine Cannabinoids Screen Neg NEGATIVE Random Vancomycin Level 6.8 5-10 ug/mL White Blood Count 14.5 H 4.4-10.8 10^3/uL Red Blood Count 4.83 4.5-5.90 10^6/uL Hemoglobin 14.1 13.5-17.5 g/dL Hematocrit 41.0 41.0-53.0 % Mean Corpuscular Volume 85.0 80.0-100.0 fL Mean Corpuscular Hemoglobin 29.2 28.0-32.0 pg Mean Corpuscular Hemoglobin Concent 34.4 32.0-36.0 g/dL Red Cell Distribution Width 13.8 11.8-14.3 % Platelet Count 163 140-450 10^3/uL Mean Platelet Volume 7.7 6.9-10.8 fL Neutrophils (%) (Auto) 85.4 H 37.0-80.0 % Lymphocytes (%) (Auto) 8.1 L 10.0-50.0 % Monocytes (%) (Auto) 6.2 0.0-12.0 % Eosinophils (%) (Auto) 0.0 0.0-7.0 % Basophils (%) (Auto) 0.3 0.0-2.0 % Neutrophils # (Auto) 12.4 H 1.6-8.6 10 ^3/uL Lymphocytes # (Auto) 1.2 0.4-5.4 10 ^3/uL Monocytes # (Auto) 0.9 0-1.3 10 ^3/uL Eosinophils # (Auto) 0 0-0.8 10 ^3/uL Basophils # (Auto) 0 0-0.2 10 ^3/uL Nucleated Red Blood Cells 0.0 % Sodium Level 136 136-145 mmol/L Potassium Level 3.7 3.5-5.1 mmol/L Chloride Level 104 98-107 mmol/L Carbon Dioxide Level 24 20-31 mmol/L Anion Gap 8 5-15 Blood Urea Nitrogen 10 9-23 mg/dL Creatinine 1.01 0.700-1.30 mg/dL Glomerular Filtration Rate Calc 96 >90 mL/min BUN/Creatinine Ratio 9.9 L 10.0-20.0 Serum Glucose 140 H 74-106 mg/dL Hemoglobin A1c 5.8 H <5.7 % A1C Calcium Level 8.5 L 8.7-10.4 mg/dL Total Bilirubin 1.1 H 0.2-1.0 mg/dL Aspartate Amino Transferase (AST) 19 <34 U/L Alanine Aminotransferase (ALT) 33 7-40 U/L Alkaline Phosphatase 50 46-116 U/L B-Type Natriuretic Peptide 52.55 0-100 pg/mL Total Protein 6.4 5.7-8.2 g/dL Albumin 4.1 3.2-4.8 g/dL Triglycerides Level 59 < 150 mg/dL Cholesterol Level 134 < 200 mg/dL LDL Cholesterol 90 < 100 mg/dL HDL Cholesterol 42 40-59 mg/dL Test 08/11/24 20:11 Range/Units D-Dimer, Quantitative 0.44 0.0-0.49 mg/L FEU Lactic Acid Level 1.7 0.4-2.0 mmol/L Microbiology Date/Time Source Procedure Growth Status 08/11/24 20:11 Blood Blood Culture - Preliminary NO GROWTH AFTER 24 HOURS OF INCUBATION. Resulted Assessment/Plan Plan Patient is a 43-year-old gentleman who presented with weeks of worsening leg swellings which has slowly worsened. On arrival blood pressure was high and in 200s. Cardiology was involved to rule out heart failure. Patient himself denies any previous cardiac history. Patient himself denies any previous cardiac evaluation. Patient denies any chest pains. Patient mentions bilateral leg swellings which started around 1 year back. Does complain of exertional dyspnea. Denies PND. Complains of orthopnea. Does use methamphetamine regularly. Denies loss of consciousness. Denies palpitations. Obese gentleman. Not in acute distress. No gross JVD. Mucosa is pink and wet. No carotid bruit. No goiter. Lungs reveal scattered rhonchi. No rales. Cardiac: Regular, no thrill/gallop. Abdomen is obese. There is no gross mass. Extremities reveal 3+ edema bilaterally. Past medical history includes obesity, hypertension hyperlipidemia, history of cellulitis of lower extremity, old history of pancreatitis, history of polysubstance abuse and old history of cholecystectomy. He smokes cigarettes and uses marijuana and methamphetamine. Denies relevant family history. Denies early in the family. Denies CVA/MT in the family WBC: 13.0 - 14.5 D-dimer: 0.44 (within normal limits) Potassium: 4.2 - 3.7 Creatinine: 1.15 - 1.01 Lactic acid: 1.7 BNP: 52.55 Urine toxicology was positive for opiates and methamphetamine Chest x-ray revealed: IMPRESSION: 1. No acute cardiopulmonary disease. Venous Doppler of lower extremities revealed: Impression: 1. Common femoral vein saphenous vein proximal superficial femoral vein were not visualized because of patient's inability to take their pants all. 2. Mid superficial femoral vein and popliteal vein and trifurcation appeared normal 3. If clinical concern/symptoms persist or worsen, short-interval follow-up study is suggested. EKG revealed: Sinus rhythm, right bundle-branch block Telemetry revealed sinus rhythm with occasional PVCs Echocardiogram revealed: Left ventricle: Mild concentric left ventricular hypertrophy was seen. LVEF was around 60-65%. There was no gross wall motion abnormality. Right ventricle: Right ventricle was dilated with preserved syst olic function. Left atrium was mildly dilated. Right atrium was dilated. Aortic valve: Aortic valve was not well visualized. There was no aortic insufficiency/stenosis. There was no mitral/tricuspid regurgitation. There was trace pulmonary valve insufficiency. As there was no good tricuspid regurgitation jet, right ventricular systolic pressure could not be estimated. Patient is a 43-year-old gentleman who presented with bilateral leg swellings. Does have history of cellulitis of leg. Presentation questions worsening cellulitis. It seems that the patient has been experiencing bilateral leg swelling for the past year. Presentation questions component of heart failure/pulmonary hypertension. It is of note that BNP is normal and is against any component of heart failure. Still, as the patient is obese BNP can be falsely normal in a patient with heart failure. Echocardiogram reveals right- sided chamber dilatation which questions some component of pulmonary hypertension. Unfortunately, there was no TR jet and pulmonary artery pressure could not be estimated. Bilateral leg swellings Cellulitis Obesity Hypertension, on arrival Polysubstance abuse Cardiac suggestion for management: Manage on telemetry IV diuresis for now is suggested Follow-up electrolytes and kidney function tests and correct abnormalities Follow-up vital signs and treat hypertension Request to repeat venous Doppler of lower extremities Request for CT angio of the lungs Lifestyle and risk factor modifications advised. Patient was counseled to avoid substance abuse Further evaluation and management depends on the above and clinical course Thank you for consult A total of 75 minutes was spent reviewing the patient record, examining the patient, making a diagnostic and therapeutic plan, discussing this plan with medical personnel, following up on diagnostic studies and following the patient for clinical stability excluding any and all procedures. At least 50% of this time was spent in direct, [id number] contact. Thank you for allowing me to participate in this patient's care. Further recommendations will depend on patient's clinical course. Please do not hesitate to contact me if you have any questions or concerns. This medical document was created using electronic medical record system with [employer] computerized dictation system. Although this document has been carefully reviewed, there may still be some phonetic and typographical errors. These areas are purely typographical due to the imperfection of the software programs, and do not reflect any compromise in the patient's medical care. Plan discussed with: Patient, Other (nurse) NANCY NAVARRO MD Aug 13, 2024 06:39
--- NOTE | 2024-08-13 07:35 | ECG ---
[facility] Test Date: 2024-08-13 Test Time: 06:28:34 Pat Name: MAKENNA ALLRED Department: Room: [facility] A Gender: M Cad Manager: OLEGARIO : 1980 Requested By: ECTOR SEAMAN Order Number: [id number] Reading MD: Alvarado Cox Measurements Intervals Rogers Rate: 88 P: 65 NM: 181 QRS: 87 QRSD: 122 T: 58 QT: 369 QTc: 447 Interpretive Statements Sinus rhythm Atrial premature complex Right bundle branch block Baseline wander in lead(s) V2 Electronically Signed On 08-16-2024 20:18:52 PDT by Alvarado Cox Please click the below link to view image of tracing.
[2024-08-13] MEDS: IOHEXOL 350 MG/ML 100ML IJ ONE (08:40)
--- NOTE | 2024-08-13 09:13 | DVH ---
BILATERAL DUPLEX LOWER EXTREMITY VENOUS ULTRASOUND: HISTORY: B/L/E cellulities COMPARISON: US LT LOWER DVT on DOS: 08/11/24, US RT LOWER DVT on DOS: 06/11/24, US RT LOWER DVT on DOS: 12/12/22 TECHNIQUE: Real-time grayscale and color doppler ultrasound evaluation of the bilateral lower extremi ty deep venous system. Spectral wave forms obtained. FINDINGS: RIGHT: There is normal compressibility, color flow, and Doppler augmented signal present in the commo n femoral, femoral, popliteal and visualized calf veins. There is no evidence for Mendez's cyst. No other sonographic abnormality identified. 2.2 cm short access right inguinal lymph node with preservation of the fatty hilum. LEFT: There is normal compressibility, color flow, and Doppler augmented signal present in the common femoral, femoral, popliteal and visualized calf veins. There is no evidence for Mendez's cyst. No other sonographic abnormality identified. IMPRESSION: 1. No sonographic evidence of deep vein thrombosis in either lower extremity. 2. Likely reactive right inguinal enlarged lymph node
--- NOTE | 2024-08-13 09:45 | DVH ---
CTA CHEST, PE PROTOCOL: HISTORY: Rule out CHF COMPARISON: None CONTRAST: Contrast injected: 100 ml Contrast wasted: 0 ml TECHNIQUE: Angiographic postcontrast images were obtained of the chest. 3-D images (volume rendered, surface prabhakar dered, and/or MIP) were produced, and stored in PACS. FINDINGS: Sql Database Administrator: Unremarkable The lungs are clear. There is diffuse bronchial wall thickening. The thyroid gland in thoracic inlet are within normal limits. Cardiac chamber size is unremarkable. No enlarged intrathoracic lymph nodes. Thoracic aorta and proximal great vessels are unremarkable. Ma in portal vein is normal in size. No filling defects to the level of the proximal subsegmental pulmon eliza arteries. The distal pulmonary arteries are not well assessed due to motion. Hypoattenuation of the paddock parenchyma. Nodular liver contour. No acute osseus abnormality IMPRESSION: 1. Diffuse bronchial wall thickening, nonspecific, but can be seen in the setting of chronic large airways disease, typically bronchitis or asthma. Findings can additionally be seen in acute viral br onchitis. 2. No pulmonary emboli 3. Fatty liver with mild nodular contour, correlate for fibrosis- early cirrhosis
--- NOTE | 2024-08-13 15:30 | DVHPN2 ---
Progress Note - Dictate Date Seen: Aug 13, 2024 Medical Necessity Reason Pt with a Central, PICC or Fol: No vital signs Vital Sign Date Time Temp Pulse Resp B/P (MAP) Pulse Ox O2 Delivery O2 Flow Rate FiO2 08/13/24 14:40 99 19 128/79 08/13/24 13:00 98.7 94 98.7 08/13/24 08:00 Nasal Cannula* 2 28 Total Intake and Output 08/12/24 08/12/24 08/13/24 15:00 23:00 07:00 Intake Total 1500 ml 550 ml Output Total 0 ml 1450 ml Balance 1500 ml -900 ml medications Current Medications Medications Dose Ordered Sig/Martha Route Start Time Stop Time Status Last Admin Dose Admin Acetaminophen/ Hydrocodone Bitart 1 tab Q4HP PRN PO 08/11/24 21:45 08/13/24 02:58 1 TAB Temazepam 15 mg QHSP PRN PO 08/11/24 21:45 Docusate Sodium 100 mg BIDPRN PRN PO 08/11/24 21:45 Enoxaparin Sodium 40 mg DAILY SC 08/12/24 10:00 08/13/24 09:38 40 MG Acetaminophen 650 mg Q6HP PRN PO 08/11/24 21:45 08/12/24 16:04 650 MG Morphine Sulfate 2 mg Q4HPRN PRN IV 08/11/24 21:45 08/13/24 14:10 2 MG Piperacillin Sod/ Tazobactam Sod 100 ml @ 100 mls/hr Q8HR IV 08/11/24 22:00 08/13/24 13:53 100 MLS/HR Nitroglycerin 0.4 mg Q5MINP PRN SL 08/11/24 21:45 Morphine Sulfate 2 mg Q30M PRN IV 08/11/24 21:45 Hydralazine HCl 10 mg Q6HP PRN IV 08/11/24 22:00 08/12/24 01:04 10 MG Famotidine 20 mg BID PO 08/11/24 22:00 08/13/24 09:37 20 MG Vancomycin HCl 0 ml @ 0 mls/hr UD IV 08/12/24 01:00 Metoprolol Tartrate 50 mg BID PO 08/12/24 13:45 08/13/24 09:39 50 MG Losartan Potassium 50 mg BID PO 08/12/24 13:45 08/13/24 09:39 50 MG Furosemide 40 mg BIDD IV 08/13/24 18:00 Vancomycin HCl 150 ml @ 150 mls/hr Q6H IV 08/13/24 19:00 objective General Appearance: alert, no distress HEENT: EOMI, PERRLA, normal external inspect of ears, no icterus, no nasal drainage Neck: no carotid bruit, no jugular venous distention (JVD), no lymphadenopathy Chest: normal thorax Respiratory: clear to auscultation, normal air movement Cardiovascular: regular rate and rhythm, no diastolic murmur, no jugular venous distention (JVD), no rub, no systolic murmur Abdominal: soft, no hepatomegaly, no mass, no splenomegaly, no tenderness Genitourinary: grossly normal external Musculoskeletal: no joint tenderness, no swelling Extremities: normal pulses, no calf tenderness, no clubbing, no cyanosis Skin: no bruising, no jaundice, no rash Neurological: alert, No focal deficit laboratory and microbiology Laboratory Tests 08/13/24 06:54 08/12/24 04:09 Test 08/12/24 04:09 Range/Units Serum Glucose 140 H 74-106 mg/dL Problem List 1. Sepsis Cardiology consult, cardiac diet 2. BLE Cellulitis IV abx 3. Obesity Diet education, monitoring 4. Benign essential HTN Antihypertensives 5. Hx polysubstance abuse Urinalysis Assessment/Plan Subjective Patient is awake and alert. Objective Patient has severe edema to bilateral lower extremities with cellulitis worse on the right lower extremity. I discussed plan of care with patient. He remains on antibiotics with vancomycin Zosyn. Patients urine drug screen was positive for methamphetamines and cannabis. Plan Continue current treatment. Patient BNP is within normal limits however he is obese. Continue diuretics. Patient's ultrasound is negative for DVT. Continue antibiotics. Plan discussed with: Patient, Other ECTOR SEAMAN NP Aug 13, 2024 15:30
[2024-08-13] MEDS: FUROSEMIDE 40 MG/4 ML VIAL IV SCH (17:12)
[2024-08-13] MEDS: VANCOMYCIN 750mg/150ml 150 ML IV SCH (18:39)
[2024-08-13] MEDS: PIPERACILLIN-TAZOB 3.375GM 100 ML IV SCH (21:09)
[2024-08-14] VITALS (8 sets, daily range): BP systolic 105–148; BP diastolic 62–98; PULSE 88–102; RESP 17–22; TEMP 97.8–100; O2SAT 94–98
[2024-08-14] MEDS: VANCOMYCIN 750mg/150ml 150 ML IV SCH (00:08)
[2024-08-14] MEDS: PIPERACILLIN-TAZOB 3.375GM 100 ML IV SCH (06:21)
[2024-08-14 06:32] LABS: Hematocrit 40.9 % (41.0-53.0); Hemoglobin 14.2 g/dL (13.5-17.5); Mean Corpuscular Hemoglobin 29.8 pg (28.0-32.0); Mean Corpuscular Volume 85.6 fL (80.0-100.0); Nucleated Red Blood Cells % 0.0 %
--- NOTE | 2024-08-14 06:44 | DVHPN2 ---
Progress Note - Dictate Date Seen: Aug 14, 2024 Medical Necessity Reason Pt with a Central, PICC or Fol: No vital signs Vital Sign Date Time Temp Pulse Resp B/P (MAP) Pulse Ox O2 Delivery O2 Flow Rate FiO2 08/14/24 05:56 106 17 139/71 08/14/24 05:00 98.5 95 98.5 08/13/24 19:53 Room Air* 0 21 Total Intake and Output 08/13/24 08/13/24 08/14/24 15:00 23:00 07:00 Intake Total 700 ml 1250 ml 1100 ml Output Total 800 ml 3000 ml Balance 700 ml 450 ml -1900 ml medications Current Medications Medications Dose Ordered Sig/Martha Route Start Time Stop Time Status Last Admin Dose Admin Acetaminophen/ Hydrocodone Bitart 1 tab Q4HP PRN PO 08/11/24 21:45 08/13/24 22:14 1 TAB Temazepam 15 mg QHSP PRN PO 08/11/24 21:45 Docusate Sodium 100 mg BIDPRN PRN PO 08/11/24 21:45 Enoxaparin Sodium 40 mg DAILY SC 08/12/24 10:00 08/13/24 09:38 40 MG Acetaminophen 650 mg Q6HP PRN PO 08/11/24 21:45 08/12/24 16:04 650 MG Morphine Sulfate 2 mg Q4HPRN PRN IV 08/11/24 21:45 08/14/24 05:26 2 MG Nitroglycerin 0.4 mg Q5MINP PRN SL 08/11/24 21:45 Morphine Sulfate 2 mg Q30M PRN IV 08/11/24 21:45 Hydralazine HCl 10 mg Q6HP PRN IV 08/11/24 22:00 08/12/24 01:04 10 MG Famotidine 20 mg BID PO 08/11/24 22:00 08/13/24 21:09 20 MG Vancomycin HCl 0 ml @ 0 mls/hr UD IV 08/12/24 01:00 Metoprolol Tartrate 50 mg BID PO 08/12/24 13:45 08/13/24 21:10 50 MG Losartan Potassium 50 mg BID PO 08/12/24 13:45 08/13/24 21:11 50 MG Furosemide 40 mg BIDD IV 08/13/24 18:00 08/14/24 05:01 40 MG Vancomycin HCl 150 ml @ 150 mls/hr Q6H IV 08/14/24 00:00 08/14/24 05:00 150 MLS/HR Piperacillin Sod/ Tazobactam Sod 100 ml @ 25 mls/hr Q8H IV 08/14/24 07:00 08/14/24 06:21 25 MLS/HR laboratory and microbiology Laboratory Tests 08/12/24 04:09 Test 08/12/24 04:09 Range/Units Serum Glucose 140 H 74-106 mg/dL Assessment/Plan Patient is a 43-year-old gentleman who presented with weeks of worsening leg swellings which has slowly worsened. On arrival blood pressure was high and in 200s. Cardiology was involved to rule out heart failure. Patient himself denies any previous cardiac history. Patient himself denies any previous cardiac evaluation. Patient denies any chest pains. Patient mentions bilateral leg swellings which started around 1 year back. Does complain of exertional dyspnea. Denies PND. Complains of orthopnea. Does use methamphetamine regularly. Denies loss of consciousness. Denies palpitations. Obese gentleman. Not in acute distress. No gross JVD. Mucosa is pink and wet. No carotid bruit. No goiter. Lungs reveal scattered rhonchi. No rales. Cardiac: Regular, no thrill/gallop. Abdomen is obese. There is no gross mass. Extremities reveal 3+ edema bilaterally. Past medical history includes obesity, hypertension hyperlipidemia, history of cellulitis of lower extremity, old history of pancreatitis, history of polysubstance abuse and old history of cholecystectomy. He smokes cigarettes and uses marijuana and methamphetamine. Denies relevant family history. Denies early in the family. Denies CVA/PA in the family WBC: 13.0 - 14.5 - 7.4 D-dimer: 0.44 (within normal limits) Potassium: 4.2 - 3.7 Creatinine: 1.15 - 1.01 - 0.99 - 1.05 Lactic acid: 1.7 BNP: 52.55 Urine toxicology was positive for opiates and methamphetamine Chest x-ray revealed: IMPRESSION: 1. No acute cardiopulmonary disease. Venous Doppler of lower extremities revealed: Impression: 1. Common femoral vein saphenous vein proximal superficial femoral vein were not visualized because of patient's inability to take their pants all. 2. Mid superficial femoral vein and popliteal vein and trifurcation appeared normal 3. If clinical concern/symptoms persist or worsen, short-interval follow-up study is suggested. Repeat venous duplex of lower ext revealed: IMPRESSION: 1. No sonographic evidence of deep vein thrombosis in either lower extremity. 2. Likely reactive right inguinal enlarged lymph node CTA of lungs revealed: IMPRESSION: 1. Diffuse bronchial wall thickening, nonspecific, but can be seen in the setting of chronic large airways disease, typically bronchitis or asthma. Findings can additionally be seen in acute viral bronchitis. 2. No pulmonary emboli 3. Fatty liver with mild nodular contour, correlate for fibrosis- early cirrhosis EKG revealed: Sinus rhythm, right bundle-branch block Telemetry revealed sinus rhythm with occasional PVCs Echocardiogram revealed: Left ventricle: Mild concentric left ventricular hypertrophy was seen. LVEF was around 60-65%. There was no gross wall motion abnormality. Right ventricle: Right ventricle was dilated with preserved systolic function. Left atrium was mildly dilated. Right atrium was dilated. Aortic valve: Aortic valve was not well visualized. There was no aortic insufficiency/stenosis. There was no mitral/tricuspid regurgitation. There was trace pulmonary valve insufficiency. As there was no good tricuspid regurgitation jet, right ventricular systolic pressure could not be estimated. Patient is a 43-year-old gentleman who presented with bilateral leg swellings. Does have history of cellulitis of leg. Presentation questions worsening cellulitis. It seems that the patient has been experiencing bilateral leg swelling for the past year. Presentation questions component of heart failure/pulmonary hypertension. It is of note that BNP is normal and is against any component of heart failure. Still, as the patient is obese BNP can be falsely normal in a patient with heart failure. Echocardiogram reveals right- sided chamber dilatation which questions some component of pulmonary hypertension. Unfortunately, there was no TR jet and pulmonary artery pressure could not be estimated. PE was ruled out by CTA. R/O bronchitis Bilateral leg swellings Cellulitis, lower ext Obesity Hypertension, on arrival Polysubstance abuse Cardiac suggestion for management: Manage on telemetry IV diuresis for now is suggested Follow-up electrolytes and kidney function tests and correct abnormalities Follow-up vital signs and treat hypertension Management of cellulitis (antibiotics) as per primary team Lifestyle and risk factor modifications advised. Patient was counseled to avoid substance abuse. Patient was counseled to be compliant with meds Further evaluation and management depends on the above and clinical course A total of 55 minutes was spent reviewing the patient record, examining the patient, making a diagnostic and therapeutic plan, discussing this plan with medical personnel, following up on diagnostic studies and following the patient for clinical stability excluding any and all procedures. At least 50% of this time was spent in direct, [id number] contact. Thank you for allowing me to participate in this patient's care. Further recommendations will depend on patient's clinical course. Please do not hesitate to contact me if you have any questions or concerns. This medical document was created using electronic medical record system with [employer] computerized dictation system. Although this document has been carefully reviewed, there may still be some phonetic and typographical errors. These areas are purely typographical due to the imperfection of the software programs, and do not reflect any compromise in the patient's medical care. Plan discussed with: Patient, Other (nurse) NANCY NAVARRO MD Aug 14, 2024 06:44
--- NOTE | 2024-08-14 16:39 | DVHPN2 ---
Progress Note - Dictate Date Seen: Aug 14, 2024 Medical Necessity Reason Pt with a Central, PICC or Fol: No vital signs Vital Sign Date Time Temp Pulse Resp B/P (MAP) Pulse Ox O2 Delivery O2 Flow Rate FiO2 08/14/24 16:10 104 19 126/71 08/14/24 16:09 100.0 08/14/24 14:14 98 08/14/24 08:00 Room Air* 0 21 Total Intake and Output 08/13/24 08/13/24 08/14/24 15:00 23:00 07:00 Intake Total 700 ml 1250 ml 1100 ml Output Total 800 ml 3000 ml Balance 700 ml 450 ml -1900 ml medications Current Medications Medications Dose Ordered Sig/Martha Route Start Time Stop Time Status Last Admin Dose Admin Acetaminophen/ Hydrocodone Bitart 1 tab Q4HP PRN PO 08/11/24 21:45 08/13/24 22:14 1 TAB Temazepam 15 mg QHSP PRN PO 08/11/24 21:45 Docusate Sodium 100 mg BIDPRN PRN PO 08/11/24 21:45 Enoxaparin Sodium 40 mg DAILY SC 08/12/24 10:00 08/14/24 09:20 40 MG Acetaminophen 650 mg Q6HP PRN PO 08/11/24 21:45 08/14/24 16:09 650 MG Morphine Sulfate 2 mg Q4HPRN PRN IV 08/11/24 21:45 08/14/24 16:10 2 MG Nitroglycerin 0.4 mg Q5MINP PRN SL 08/11/24 21:45 Morphine Sulfate 2 mg Q30M PRN IV 08/11/24 21:45 Hydralazine HCl 10 mg Q6HP PRN IV 08/11/24 22:00 08/12/24 01:04 10 MG Famotidine 20 mg BID PO 08/11/24 22:00 08/14/24 09:21 20 MG Vancomycin HCl 0 ml @ 0 mls/hr UD IV 08/12/24 01:00 Metoprolol Tartrate 50 mg BID PO 08/12/24 13:45 08/14/24 09:20 50 MG Losartan Potassium 50 mg BID PO 08/12/24 13:45 08/14/24 09:21 50 MG Furosemide 40 mg BIDD IV 08/13/24 18:00 08/14/24 05:01 40 MG Vancomycin HCl 150 ml @ 150 mls/hr Q6H IV 08/14/24 00:00 08/14/24 12:07 150 MLS/HR Piperacillin Sod/ Tazobactam Sod 100 ml @ 25 mls/hr Q8H IV 08/14/24 07:00 08/14/24 16:05 25 MLS/HR objective General Appearance: alert, no distress HEENT: EOMI, PERRLA, normal external inspect of ears, no icterus, no nasal drainage Neck: no carotid bruit, no jugular venous distention (JVD), no lymphadenopathy Chest: normal thorax Respiratory: clear to auscultation, normal air movement Cardiovascular: regular rate and rhythm, no diastolic murmur, no jugular venous distention (JVD), no rub, no systolic murmur Abdominal: soft, no hepatomegaly, no mass, no splenomegaly, no tenderness Genitourinary: grossly normal external Musculoskeletal: no joint tenderness, no swelling Extremities: normal pulses, no calf tenderness, no clubbing, no cyanosis Skin: no bruising, no jaundice, no rash Neurological: alert, No focal deficit laboratory and microbiology Laboratory Tests 08/14/24 05:42 08/12/24 04:09 Test 08/12/24 04:09 Range/Units Serum Glucose 140 H 74-106 mg/dL Problem List 1. Sepsis Cardiology consult, cardiac diet 2. BLE Cellulitis IV abx 3. Obesity Diet education, monitoring 4. Benign essential HTN Antihypertensives 5. Hx polysubstance abuse Urinalysis Assessment/Plan Subjective Patient is awake and alert. Objective Patient is complaining of more pain and burning to the right lower extremity. Right lower extremity appears more edematous than prior days. I did discuss concern with chest for possible compartment syndrome. I did leave a voicemail to the surgeon on-call Dr. Epperson and I also spoke with Dr. Gan due to no improvement to cellulitis to lower extremity. Patient is positive for methamphetamine and cannabis. Plan Continue antibiotics with vancomycin and Zosyn. ID consult with Dr. Gan. I did consult Dr. Epperson arterial Doppler pending to right lower extremity. Plan discussed with: Patient, Other ECTOR SEAMAN HUMAN FACTORS ERGONOMIST Aug 14, 2024 16:39
--- NOTE | 2024-08-14 17:29 | DVHCONRES ---
Date Seen: Aug 14, 2024 Resident Creating Document: DEMETRIUS ETIENNE RESIDENT Referring Physician Starr Reason for Consultation Cellulitis not improvement History of Present Illness This is a 43-year-old male with past medical history of polysubstance abuse, hypertension, dyslipidemia and pancreatitis who presented to the ED with chief complaint of bilateral leg swelling and erythema for the past two weeks. The patient states that he has been having increased size of his legs for the past year but that got worse in the past three weeks bilaterally. Upon admission patient reported to have bilateral leg swelling, erythema and pain but upon my physical exam today, patient is having right lower extremity edema, erythema and extreme tenderness to palpation that is located at the right ankle all the way up just below the right knee. Initial labs showed a WBC of 13.0 that peaked up at 14.5. Hemoglobin A1c is 5.8% consistent with prediabetes. Urine drug screen came back positive for opioids and amphetamines. Initial bilateral lower extremity venous Doppler ultrasound showed no evidence of DVTs. We will order a bilateral lower extremity arterial Doppler to rule out significant hemodynamic stenosis. We will also order a CT scan of the right lower extremity with contrast to rule out any abscess or fluid collection at the level of the cellulitis. With a demarcated with a pen the right lower extremity cellulitis. We will keep current IV antibiotics vancomycin and Zosyn. Past Medical History Hypertension, dyslipidemia, polysubstance abuse, pancreatitis, Past Surgical History Cholecystectomy Family History: Alcoholism G8 MOTHER, Onset:Unknown Family History Family history of alcoholism in the mother. Social History Patient reports polysubstance abuse, alcohol occasionally and smoking. 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 12/15/22 Sulfamethoxazole W/Trimethopri (Bactrim Ds Tablet) 1 Tab Tb, 1 TAB PO BID for 14 Days, #28 TAB Prov:[employer] SE[employer] SP[employer]ISH INSTRUCTOR 12/15/22 Current Medications Current Medications Medications (Trade) Dose Ordered Sig/Martha Route PRN Reason Start Time Stop Time Status Last Admin Furosemide (Lasix Injection) 40 mg BIDD IV 08/13/24 18:00 08/14/24 05:01 Vancomycin HCl 150 ml @ 150 mls/hr Q6H IV 08/13/24 19:00 08/13/24 20:15 DC 08/13/24 18:39 Vancomycin HCl 150 ml @ 150 mls/hr Q6H IV 08/14/24 00:00 08/14/24 12:07 Piperacillin Sod/ Tazobactam Sod 100 ml @ 25 mls/hr Q8H IV 08/14/24 07:00 08/14/24 16:05 Piperacillin Sod/ Tazobactam Sod 100 ml @ 25 mls/hr Q8HR IV 08/13/24 22:00 08/13/24 23:00 DC 08/13/24 21:09 Review of Systems ROS Constitutional: Denies weight loss, fever and chills. HEENT: Denies changes in vision and hearing. Respiratory: Denies shortness of breath and cough Cardiovascular: Denies chest discomfort or palpitations GI: Denies abdominal pain, nausea, vomiting and diarrhea. : Denies dysuria and urinary frequency. Musculoskeletal: Patient reports bilateral lower extremity pain to palpation. Patient states that right lower extremity swelling, hot to palpation and with severe tenderness. Skin: Denies rash and pruritus. Neurological: Denies dizziness, headache, vision or hearing problems Vital Signs Vital Signs Date Time Temp Pulse Resp B/P (MAP) Pulse Ox O2 Delivery O2 Flow Rate FiO2 08/14/24 17:00 100.0 102 17 126/71 (89) 94 100.0 08/14/24 08:00 Room Air* 0 21 Physical Exam Physical Examination General: Patient alert and oriented in person, place and time. Patient following commands. HEENT: Normocephalic, atraumatic, moist mucous membranes Respiratory/pulmonary: Clear lungs bilaterally, no associated crackles or wheezes. Cardiovascular: Normal heart sounds S1 and S2 with no associated murmurs Abdomen: Abdomen nondistended, there is no pain to palpation in any of the abdominal quadrants, no palpable masses. Extremities: There is significant cellulitis of the right lower extremity exte nding from the right ankle all the way up just below the right knee, there is significant edema, hot sensation to the touch and severe tenderness to palpation. Left lower extremity there is no erythema or significant swelling but he is also tender to palpation. Skin: No rashes or pruritus, there is no sacral edema present at this time. Neurological: Intact cranial nerves with no focal neurologic deficits Labs/Diagnostic Data Labs Test 08/14/24 10:52 08/14/24 05:42 08/12/24 13:45 08/12/24 13:42 Range/Units Vancomycin Level Trough 10.7 H 5-10 ug/mL White Blood Count 7.4 # 4.4-10.8 10^3/uL Red Blood Count 4.78 4.5-5.90 10^6/uL Hemoglobin 14.2 13.5-17.5 g/dL Hematocrit 40.9 L 41.0-53.0 % Mean Corpuscular Volume 85.6 80.0-100.0 fL Mean Corpuscular Hemoglobin 29.8 28.0-32.0 pg Mean Corpuscular Hemoglobin Concent 34.8 32.0-36.0 g/dL Red Cell Distribution Width 13.8 11.8-14.3 % Platelet Count 171 140-450 10^3/uL Mean Platelet Volume 8.1 6.9-10.8 fL Neutrophils (%) (Auto) 73.6 37.0-80.0 % Lymphocytes (%) (Auto) 14.8 10.0-50.0 % Monocytes (%) (Auto) 10.0 0.0-12.0 % Eosinophils (%) (Auto) 1.3 0.0-7.0 % Basophils (%) (Auto) 0.3 0.0-2.0 % Neutrophils # (Auto) 5.4 1.6-8.6 10 ^3/uL Lymphocytes # (Auto) 1.1 0.4-5.4 10 ^3/uL Monocytes # (Auto) 0.7 0-1.3 10 ^3/uL Eosinophils # (Auto) 0.1 0-0.8 10 ^3/uL Basophils # (Auto) 0 0-0.2 10 ^3/uL Nucleated Red Blood Cells 0.0 % Urine Color Yellow Yellow Urine Clarity Clear Clear Urine pH 5.5 5.0-9.0 Urine Specific [place] 1.028 1.001-1.035 Urine Protein Trace H Negative Urine Ketones Trace Negative Urine Blood Trace H Negative /uL Urine Nitrite Negative Negative Urine Bilirubin Negative Negative Urine Urobilinogen Normal Negative mg/dL Urine Leukocyte Esterase Negative Negative /uL Urine RBC 4 0 - 3 /hpf Urine Microscopic WBC 2 0-3 /HPF Urine Squamous Epithelial Cells Few <5 /hpf Urine Bacteria None seen None Seen /hpf Urine Glucose Normal Normal mg/dL Urine Opiates Screen Pos NEGATIVE Urine Fentanyl Screen Neg NEGATIVE Urine Barbiturates Screen Neg NEGATIVE Urine Phencyclidine Screen Neg NEGATIVE Urine Amphetamines Screen Pos NEGATIVE Urine Benzodiazepines Screen Neg NEGATIVE Urine Cocaine Screen Neg NEGATIVE Urine Cannabinoids Screen Neg NEGATIVE Test 08/12/24 11:31 08/12/24 04:09 08/11/24 20:11 Range/Units Random Vancomycin Level 6.8 5-10 ug/mL Hemoglobin A1c 5.8 H <5.7 % A1C Total Bilirubin 1.1 H 0.2-1.0 mg/dL Aspartate Amino Transferase (AST) 19 <34 U/L Alanine Aminotransferase (ALT) 33 7-40 U/L Alkaline Phosphatase 50 46-116 U/L B-Type Natriuretic Peptide 52.55 0-100 pg/mL Total Protein 6.4 5.7-8.2 g/dL Albumin 4.1 3.2-4.8 g/dL Triglycerides Level 59 < 150 mg/dL Cholesterol Level 134 < 200 mg/dL LDL Cholesterol 90 < 100 mg/dL HDL Cholesterol 42 40-59 mg/dL D-Dimer, Quantitative 0.44 0.0-0.49 mg/L FEU Lactic Acid Level 1.7 0.4-2.0 mmol/L Microbiology Date/Time Source Procedure Growth Status 08/12/24 15:59 Blood Blood Culture - Preliminary NO GROWTH AFTER 48 HOURS OF INCUBATION. Resulted Assessment Assessment/plan Acute right lower extremity cellulitis Sepsis likely due to right lower extremity cellulitis R/O compartment syndrome on right lower extremity (unlikely) Primary hypertension Dyslipidemia Plan -ordered right lower extremity CT scan with contrast to rule out abscess or fluid collection under the skin. -demarcated cellulitis of the right lower extremity to assess for improvement or worsening -continue IV vancomycin and Zosyn at this point -blood cultures are negative so far -patient had contrast recently will have to wait to be performed tomorrow -Surgical evaluation to rule out compartment syndrome which is unlikely since patient still has pulses and no paresthesias present. Goals of care discussed with the patient at bedside for >35min, FULL CODE Plan discussed with Dr. Gan Plan discussed with: Patient DEMETRIUS ETIENNE RESIDENT Aug 14, 2024 17:29
[2024-08-14 17:37] LABS: Chloride 101 mmol/L (98-107); Potassium 3.9 mmol/L (3.5-5.1); Sodium 139 mmol/L (136-145)
[2024-08-14 17:38] LABS: Anion Gap 9 (5-15); Calcium 9.9 mg/dL (8.7-10.4); Carbon Dioxide 29 mmol/L (20-31)
[2024-08-14 17:43] LABS: BUN/Creatinine Ratio 9.6 (10.0-20.0); Blood Urea Nitrogen 9 mg/dL (9-23); Glucose 94 mg/dL (74-106); Magnesium 2.1 mg/dL (1.6-2.6)
--- NOTE | 2024-08-14 22:41 | DVH ---
BILATERAL LOWER EXTREMITY ARTERIAL DOPPLER ULTRASOUND CLINICAL HISTORY: poss compartment on right TECHNIQUE: Multiple grayscale, color Doppler and spectral Doppler ultrasound images were obtained of bilateral legs for evaluation of the peripheral arteries. COMPARISON: None FINDINGS: The common femoral (TAPE TRANSFERRER), upper deep femoral, superficial femoral (SFA), popliteal, anterior tibial ( ONELIA), posterior tibial (BILINGUAL SECRETARY), peroneal and dorsalis pedis arteries were evaluated on this exam. Grayscale images demonstrate no significant atherosclerotic plaque. Moderate subcutaneous edema in the right lower extremity and mild subcutaneous edema in the left lowe r extremity. Right: Color doppler images demonstrate no visible stenosis or occlusion. Spectral analysis demonstrates no rmal, high-resistive blood flow. Systolic acceleration is normal. No significant change in velocity to suggest high-grade stenosis. Velocities (in cm/sec): Common femoral Artery: 160 Proximal Deep femoral: 123 Superficial femoral artery: Proximal 189, mid 165, distal 180 Popliteal: 118 Posterior tibial: 78 Anterior tibial: 100 Dorsalis pedis: 91 Left: Color doppler images demonstrate no visible stenosis or occlusion. Spectral analysis demonstrates no rmal, high-resistive blood flow. Systolic acceleration is normal. No significant change in velocity to suggest high-grade stenosis. Velocities (in cm/sec): Common femoral Artery: 118 Proximal Deep femoral: 80 Superficial femoral artery: Proximal 100, mid 113, distal 101 Popliteal: 95 Posterior tibial: 77 Anterior tibial: 101 Dorsalis pedis: 99 IMPRESSION: 1. Widely patent arteries in the bilateral lower extremities multiphasic high resistance waveforms. 2. Slight increase in velocities in the right common femoral and superficial femoral arteries althoug h is patent on color doppler imaging. By velocity this could reflect a 30-49% stenosis. 3. Moderate subcutaneous edema in the right lower extremity and mild subcutaneous edema in the left l ower extremity.
[2024-08-15] VITALS (7 sets, daily range): BP systolic 107–160; BP diastolic 59–108; PULSE 93–105; RESP 18–20; TEMP 97.8–98.9; O2SAT 92–99
[2024-08-15] MEDS: VANCOMYCIN 750mg/150ml 150 ML IV SCH (03:32)
[2024-08-15 06:40] LABS: Hematocrit 42.8 % (41.0-53.0); Hemoglobin 14.6 g/dL (13.5-17.5); Mean Corpuscular Hemoglobin 29.2 pg (28.0-32.0); Mean Corpuscular Volume 85.4 fL (80.0-100.0); Nucleated Red Blood Cells % 0.1 %
[2024-08-15 06:41] LABS: Chloride 102 mmol/L (98-107); Potassium 4.2 mmol/L (3.5-5.1); Sodium 138 mmol/L (136-145)
[2024-08-15 06:42] LABS: Anion Gap 7 (5-15); Calcium 9.4 mg/dL (8.7-10.4); Carbon Dioxide 29 mmol/L (20-31)
[2024-08-15 06:47] LABS: BUN/Creatinine Ratio 11.1 (10.0-20.0); Blood Urea Nitrogen 10 mg/dL (9-23)
[2024-08-15 06:48] LABS: Magnesium 2.3 mg/dL (1.6-2.6)
[2024-08-15 06:49] LABS: Glucose 126 mg/dL (74-106)
--- NOTE | 2024-08-15 07:57 | DVHPN2 ---
Progress Note - Dictate Date Seen: Aug 15, 2024 Medical Necessity Reason Pt with a Central, PICC or Fol: No vital signs Vital Sign Date Time Temp Pulse Resp B/P (MAP) Pulse Ox O2 Delivery O2 Flow Rate FiO2 08/15/24 05:55 141/103 08/15/24 05:40 96 19 08/15/24 05:00 98.9 96 98.9 08/14/24 20:00 Room Air* 0 21 Total Intake and Output 08/14/24 08/14/24 08/15/24 15:00 23:00 07:00 Intake Total 975 ml 1050 ml Output Total 18 ml 1750 ml Balance 957 ml -700 ml medications Current Medications Medications Dose Ordered Sig/Martha Route Start Time Stop Time Status Last Admin Dose Admin Acetaminophen/ Hydrocodone Bitart 1 tab Q4HP PRN PO 08/11/24 21:45 08/13/24 22:14 1 TAB Temazepam 15 mg QHSP PRN PO 08/11/24 21:45 Docusate Sodium 100 mg BIDPRN PRN PO 08/11/24 21:45 Enoxaparin Sodium 40 mg DAILY SC 08/12/24 10:00 08/14/24 09:20 40 MG Acetaminophen 650 mg Q6HP PRN PO 08/11/24 21:45 08/14/24 23:02 650 MG Morphine Sulfate 2 mg Q4HPRN PRN IV 08/11/24 21:45 08/15/24 05:10 2 MG Nitroglycerin 0.4 mg Q5MINP PRN SL 08/11/24 21:45 Morphine Sulfate 2 mg Q30M PRN IV 08/11/24 21:45 Hydralazine HCl 10 mg Q6HP PRN IV 08/11/24 22:00 08/12/24 01:04 10 MG Famotidine 20 mg BID PO 08/11/24 22:00 08/14/24 22:03 20 MG Vancomycin HCl 0 ml @ 0 mls/hr UD IV 08/12/24 01:00 Metoprolol Tartrate 50 mg BID PO 08/12/24 13:45 08/14/24 09:20 50 MG Losartan Potassium 50 mg BID PO 08/12/24 13:45 08/14/24 09:21 50 MG Furosemide 40 mg BIDD IV 08/13/24 18:00 08/15/24 05:55 40 MG Piperacillin Sod/ Tazobactam Sod 100 ml @ 25 mls/hr Q8H IV 08/14/24 07:00 08/15/24 06:00 25 MLS/HR Vancomycin HCl 150 ml @ 150 mls/hr Q6H IV 08/15/24 04:00 08/15/24 03:32 150 MLS/HR laboratory and microbiology Laboratory Tests 08/15/24 05:44 Test 08/15/24 05:44 Range/Units Serum Glucose 126 H 74-106 mg/dL Assessment/Plan Patient is a 43-year-old gentleman who presented with weeks of worsening leg swellings which has slowly worsened. On arrival blood pressure was high and in 200s. Cardiology was involved to rule out heart failure. Patient himself denies any previous cardiac history. Patient himself denies any previous cardiac evaluation. Patient denies any chest pains. Patient mentions bilateral leg swellings which started around 1 year back. Does complain of exertional dyspnea. Denies PND. Complains of orthopnea. Does use methamphetamine regularly. Denies loss of consciousness. Denies palpitations. Obese gentleman. Not in acute distress. No gross JVD. Mucosa is pink and wet. No carotid bruit. No goiter. Lungs reveal scattered rhonchi. No rales. Cardiac: Regular, no thrill/gallop. Abdomen is obese. There is no gross mass. Extremities reveal 3+ edema bilaterally. Past medical history includes obesity, hypertension hyperlipidemia, history of cellulitis of lower extremity, old history of pancreatitis, history of polysubstance abuse and old history of cholecystectomy. He smokes cigarettes and uses marijuana and methamphetamine. Denies relevant family history. Denies early in the family. Denies CVA/OH in the family WBC: 13.0 - 14.5 - 7.4 - 6.9 D-dimer: 0.44 (within normal limits) Potassium: 4.2 - 3.7 - 3.9 - 4.2 Creatinine: 1.15 - 1.01 - 0.99 - 1.05 - 0.94 - 0.90 Lactic acid: 1.7 BNP: 52.55 Urine toxicology was positive for opiates and methamphetamine Chest x-ray revealed: IMPRESSION: 1. No acute cardiopulmonary disease. Venous Doppler of lower extremities revealed: Impression: 1. Common femoral vein saphenous vein proximal superficial femoral vein were not visualized because of patient's inability to take their pants all. 2. Mid superficial femoral vein and popliteal vein and trifurcation appeared normal 3. If clinical concern/symptoms persist or worsen, short-interval follow-up study is suggested. Repeat venous duplex of lower ext revealed: IMPRESSION: 1. No sonographic evidence of deep vein thrombosis in either lower extremity. 2. Likely reactive right inguinal enlarged lymph node CTA of lungs revealed: IMPRESSION: 1. Diffuse bronchial wall thickening, nonspecific, but can be seen in the setting of chronic large airways disease, typically bronchitis or asthma. Findings can additionally be seen in acute viral bronchitis. 2. No pulmonary emboli 3. Fatty liver with mild nodular contour, correlate for fibrosis- early cirrhosis Arterial duplex of lower ext revealed: 1. Widely patent arteries in the bilateral lower extremities multiphasic high resistance waveforms. 2. Slight increase in velocities in the right common femoral and superficial femoral arteries although is patent on color doppler imaging. By velocity this could reflect a 30-49% stenosis. 3. Moderate subcutaneous edema in the right lower extremity and mild subcutaneous edema in the left lower extremity. EKG revealed: Sinus rhythm, right bundle-branch block Telemetry revealed sinus rhythm with occasional PVCs Echocardiogram revealed: Left ventricle: Mild concentric left ventricular hypertrophy was seen. LVEF was around 60-65%. There was no gross wall motion abnormality. Right ventricle: Right ventricle was dilated with preserved systolic function. Left atrium was mildly dilated. Right atrium was dilated. Aortic valve: Aortic valve was not well visualized. There was no aortic insufficiency/stenosis. There was no mitral/tricuspid regurgitation. There was trace pulmonary valve insufficiency. As there was no good tricuspid regurgitation jet, right ventricular systolic pressure could not be estimated. Patient is a 43-year-old gentleman who presented with bilateral leg swellings. Does have history of cellulitis of leg. Presentation questions worsening cellulitis. It seems that the patient has been experiencing bilateral leg swelling for the past year. Presentation questions component of heart failure/pulmonary hypertension. It is of note that BNP is normal and is against any component of heart failure. Still, as the patient is obese BNP can be falsely normal in a patient with heart failure. Echocardiogram reveals right- sided chamber dilatation which questions some component of pulmonary hypertension. Unfortunately, there was no TR jet and pulmonary artery pressure could not be estimated. PE was ruled out by CTA. R/O bronchitis. Assessment has been cellulitis. Patient is on antibiotics and being followed by ID. Bilateral leg swellings Cellulitis, lower ext Obesity Hypertension, on arrival Polysubstance abuse Cardiac suggestion for management: Manage on telemetry IV diuresis for now is suggested Follow-up electrolytes and kidney function tests and correct abnormalities Follow-up vital signs and treat hypertension Management of cellulitis (antibiotics) as per primary team / ID Lifestyle and risk factor modifications advised. Patient was counseled to avoid substance abuse. Patient was counseled to be compliant with meds Further evaluation and management depends on the above and clinical course A total of 55 minutes was spent reviewing the patient record, examining the patient, making a diagnostic and therapeutic plan, discussing this plan with medical personnel, following up on diagnostic studies and following the patient for clinical stability excluding any and all procedures. At least 50% of this time was spent in direct, [id number] contact. Thank you for allowing me to participate in this patient's care. Further recommendations will depend on patient's clinical course. Please do not hesitate to contact me if you have any questions or concerns. This medical document was created using electronic medical record system with [employer] computerized dictation system. Although this document has been carefully reviewed, there may still be some phonetic and typographical errors. These areas are purely typographical due to the imperfection of the software programs, and do not reflect any compromise in the patient's medical care. Plan discussed with: Patient, Other (nurse) NANCY NAVARRO MD Aug 15, 2024 07:57
[2024-08-15] MEDS: IOHEXOL 300 MG/ML 100ML BOTTLE IJ ONE (09:08)
--- NOTE | 2024-08-15 10:35 | DVHPN2 ---
Progress Note - Dictate Date Seen: Aug 15, 2024 Medical Necessity Reason Pt with a Central, PICC or Fol: No vital signs Vital Sign Date Time Temp Pulse Resp B/P (MAP) Pulse Ox O2 Delivery O2 Flow Rate FiO2 08/15/24 09:44 98.7 104 18 125/89 (101) 94 98.7 08/14/24 20:00 Room Air* 0 21 Total Intake and Output 08/14/24 08/14/24 08/15/24 15:00 23:00 07:00 Intake Total 975 ml 1050 ml Output Total 18 ml 1750 ml Balance 957 ml -700 ml medications Current Medications Medications Dose Ordered Sig/Martha Route Start Time Stop Time Status Last Admin Dose Admin Acetaminophen/ Hydrocodone Bitart 1 tab Q4HP PRN PO 08/11/24 21:45 08/13/24 22:14 1 TAB Temazepam 15 mg QHSP PRN PO 08/11/24 21:45 Docusate Sodium 100 mg BIDPRN PRN PO 08/11/24 21:45 Enoxaparin Sodium 40 mg DAILY SC 08/12/24 10:00 08/14/24 09:20 40 MG Acetaminophen 650 mg Q6HP PRN PO 08/11/24 21:45 08/14/24 23:02 650 MG Morphine Sulfate 2 mg Q4HPRN PRN IV 08/11/24 21:45 08/15/24 05:10 2 MG Nitroglycerin 0.4 mg Q5MINP PRN SL 08/11/24 21:45 Morphine Sulfate 2 mg Q30M PRN IV 08/11/24 21:45 Hydralazine HCl 10 mg Q6HP PRN IV 08/11/24 22:00 08/12/24 01:04 10 MG Famotidine 20 mg BID PO 08/11/24 22:00 08/14/24 22:03 20 MG Vancomycin HCl 0 ml @ 0 mls/hr UD IV 08/12/24 01:00 Metoprolol Tartrate 50 mg BID PO 08/12/24 13:45 08/14/24 09:20 50 MG Losartan Potassium 50 mg BID PO 08/12/24 13:45 08/14/24 09:21 50 MG Furosemide 40 mg BIDD IV 08/13/24 18:00 08/15/24 05:55 40 MG Piperacillin Sod/ Tazobactam Sod 100 ml @ 25 mls/hr Q8H IV 08/14/24 07:00 08/15/24 06:00 25 MLS/HR Vancomycin HCl 150 ml @ 150 mls/hr Q6H IV 08/15/24 04:00 08/15/24 03:32 150 MLS/HR objective General Appearance: alert, no distress HEENT: EOMI, PERRLA, normal external inspect of ears, no icterus, no nasal drainage Neck: no carotid bruit, no jugular venous distention (JVD), no lymphadenopathy Chest: normal thorax Respiratory: clear to auscultation, normal air movement Cardiovascular: regular rate and rhythm, no diastolic murmur, no jugular venous distention (JVD), no rub, no systolic murmur Abdominal: soft, no hepatomegaly, no mass, no splenomegaly, no tenderness Genitourinary: grossly normal external Musculoskeletal: no joint tenderness, no swelling Extremities: normal pulses, no calf tenderness, no clubbing, no cyanosis Skin: no bruising, no jaundice, no rash Neurological: alert, No focal deficit laboratory and microbiology Laboratory Tests 08/15/24 05:44 Test 08/15/24 05:44 Range/Units Serum Glucose 126 H 74-106 mg/dL Problem List 1. Sepsis Cardiology consult, cardiac diet 2. BLE Cellulitis IV abx 3. Obesity Diet education, monitoring 4. Benign essential HTN Antihypertensives 5. Hx polysubstance abuse Urinalysis Assessment/Plan Subjective: Patient is awake and alert. Objective: Patient states there is no change from his right lower extremity from yesterday. Patient was seen by infectious disease. He remains on vancomycin. Patient was admitted for bilateral lower extremity cellulitis, worse on the right. Ultrasound Doppler to lower extremity has been done twice and both have been negative for DVT. CTA negative for PE. Arterial Doppler is done. Patient has palpable pulses. A poor specialist most likely no compartment syndrome to right lower extremity. Plan: Continue current treatment. Continue Vancomysin and Zosyn. Plan discussed with: Patient, Other ECTOR SEAMAN NP Aug 15, 2024 10:35
[2024-08-15] MEDS ORDERED: HYDROcodone-ACET 10/325MG TAB PO PRN (11:00)
[2024-08-15] MEDS: HYDROmorphone HCL 2 MG/ML VL/or syr IV PRN (11:40)
--- NOTE | 2024-08-15 11:43 | DVHPNRES ---
Progress Note Date Seen: Aug 15, 2024 Resident Creating Document: DEMETRIUS ETIENNE RESIDENT Has the PT tested + for MRSA If YES, has PT been informed?: No Medical Necessity Reason Pt with a Central, PICC or Fol: No Subjective Review of Systems Patient seen and examined at bedside. The patient denies fever and chills but reports significant tenderness to palpation at the right lower extremity extending all the way from the right ankle up just below the right knee. Erythema and cellulitis was demarcated yesterday with a marker which still the same size and patient still reports the same level of pain at this time. We performed a right lower extremity CT scan with contrast to rule out necrotizing infection, abscess or fluid collection. We are still pending for the results. ROS Constitutional: Denies weight loss, fever and chills. HEENT: Denies changes in vision and hearing. Respiratory: Denies shortness of breath and cough Cardiovascular: Denies chest discomfort or palpitations GI: Denies abdominal pain, nausea, vomiting and diarrhea. : Denies dysuria and urinary frequency. Musculoskeletal: Patient still reports the same level of pain at the right lower extremity and cellulitis and swelling still the same. Skin: Denies rash and pruritus. Neurological: Denies dizziness, headache, vision or hearing problems Objective vital signs Vital Sign Date Time Temp Pulse Resp B/P (MAP) Pulse Ox O2 Delivery O2 Flow Rate FiO2 08/15/24 11:24 154/92 08/15/24 11:23 105 08/15/24 09:44 98.7 18 94 98.7 08/14/24 20:00 Room Air* 0 21 Total Intake and Output 08/14/24 08/14/24 08/15/24 15:00 23:00 07:00 Intake Total 975 ml 1050 ml Output Total 18 ml 1750 ml Balance 957 ml -700 ml medications Current Medications Medications Dose Ordered Sig/Martha Route Start Time Stop Time Status Last Admin Dose Admin Temazepam 15 mg QHSP PRN PO 08/11/24 21:45 Docusate Sodium 100 mg BIDPRN PRN PO 08/11/24 21:45 Enoxaparin Sodium 40 mg DAILY SC 08/12/24 10:00 08/15/24 11:24 40 MG Acetaminophen 650 mg Q6HP PRN PO 08/11/24 21:45 08/14/24 23:02 650 MG Nitroglycerin 0.4 mg Q5MINP PRN SL 08/11/24 21:45 Morphine Sulfate 2 mg Q30M PRN IV 08/11/24 21:45 Hydralazine HCl 10 mg Q6HP PRN IV 08/11/24 22:00 08/12/24 01:04 10 MG Famotidine 20 mg BID PO 08/11/24 22:00 08/15/24 11:24 20 MG Vancomycin HCl 0 ml @ 0 mls/hr UD IV 08/12/24 01:00 Metoprolol Tartrate 50 mg BID PO 08/12/24 13:45 08/15/24 11:23 50 MG Losartan Potassium 50 mg BID PO 08/12/24 13:45 08/15/24 11:24 50 MG Furosemide 40 mg BIDD IV 08/13/24 18:00 08/15/24 05:55 40 MG Piperacillin Sod/ Tazobactam Sod 100 ml @ 25 mls/hr Q8H IV 08/14/24 07:00 08/15/24 06:00 25 MLS/HR Vancomycin HCl 150 ml @ 150 mls/hr Q6H IV 08/15/24 04:00 08/15/24 11:25 150 MLS/HR Hydromorphone HCl 1 mg Q4HPRN PRN IV 08/15/24 11:00 Acetaminophen/ Hydrocodone Bitart 1 tab Q4HP PRN PO 08/15/24 11:00 Examination Physical Examination General: Patient alert and oriented in person, place and time. Patient following commands. HEENT: Normocephalic, atraumatic, moist mucous membranes Respiratory/pulmonary: Clear lungs bilaterally, no associated crackles or wheezes. Cardiovascular: Normal heart sounds S1 and S2 with no associated murmurs Abdomen: Abdomen nondistended, there is no pain to palpation in any of the abdominal quadrants, no palpable masses. Extremities: There is significant cellulitis of the right lower extremity extending from the right ankle all the way up just below the right knee, there is significant edema, hot sensation to the touch and severe tenderness to palpation. Left lower extremity there is no erythema or significant swelling but he is also tender to palpation. Skin: No rashes or pruritus, there is no sacral edema present at this time. Neurological: Intact cranial nerves with no focal neurologic deficits laboratory and microbiology Laboratory Tests 08/15/24 05:44 Test 08/15/24 05:44 Range/Units Serum Glucose 126 H 74-106 mg/dL Microbiology Date/Time Source Procedure Growth Status 08/12/24 15:59 Blood Blood Culture - Preliminary NO GROWTH AFTER 48 HOURS OF INCUBATION. Resulted Problem List/Assessment/Plan Problem List/Assessment/Plan Assessment/plan Acute right lower extremity cellulitis Sepsis likely due to right lower extremity cellulitis R/O compartment syndrome on right lower extremity (unlikely) Primary hypertension Dyslipidemia Plan -ordered right lower extremity CT scan with contrast to rule out abscess or fluid collection under the skin. -demarcated cellulitis of the right lower extremity to assess for improvement or worsening -blood cultures are negative so far -right lower extremity CT scan with contrast was performed showing normal findings of cellulitis with no abscess, fluid collection or necrotic infection. -Surgical evaluation to rule out compartment syndrome which is unlikely since patient still has pulses and no paresthesias present. -continue vancomycin -discontinue IV Zosyn -start ceftriaxone 2 g daily Goals of care discussed with the patient at bedside for >35min, FULL CODE Plan discussed with Dr. Gan Plan discussed with: Patient My Orders My Orders Orders - DEMETRIUS ETIENNE Procedure Category Date Status Time Rt Lower Extremity W CT 08/14/24 Taken CON 17:18 DEMETRIUS ETIENNE Aug 15, 2024 11:43
--- NOTE | 2024-08-15 15:13 | DVH ---
INDICATION: abscess or fluid collection under cellulitis COMPARISON: None TECHNIQUE: CT of the right lower extremity was performed with contrast. Volume transverse images were obtained and reconstructed in multiple planes using bone and soft tissue algorithms. Radiation Dose Information: CT Dose: CTDI volume is 7.75 mGy. Dose-length product is 545.38 mGy*cm FINDINGS: The alignment is normal. The joint spaces are normal. There is no fracture, dislocation or aggressive osseous lesion. There is no joint effusion. Diffuse subcutaneous soft-tissue edema . Moderate skin thickening in the distal calf and dorsum of th e foot. IMPRESSION: Findings are suggestive of cellulitis. No focal fluid collection/ abscess. No acute fracture or dislocation.
[2024-08-16] VITALS (8 sets, daily range): BP systolic 110–140; BP diastolic 78–108; PULSE 84–110; RESP 17–19; TEMP 97.8–98.5; O2SAT 94–95
[2024-08-16] MEDS: cefTRIAXone 2GM/50ML D5W 50 ML IV SCH (09:18)
[2024-08-16 10:15] LABS: Hematocrit 41.3 % (41.0-53.0); Hemoglobin 14.4 g/dL (13.5-17.5); Mean Corpuscular Hemoglobin 29.7 pg (28.0-32.0); Mean Corpuscular Volume 85.1 fL (80.0-100.0); Nucleated Red Blood Cells % 0.1 %
[2024-08-16 10:25] LABS: Chloride 99 mmol/L (98-107); Potassium 4.0 mmol/L (3.5-5.1); Sodium 136 mmol/L (136-145)
[2024-08-16 10:26] LABS: Anion Gap 8 (5-15); Carbon Dioxide 29 mmol/L (20-31)
[2024-08-16 10:27] LABS: Calcium 10.0 mg/dL (8.7-10.4)
[2024-08-16 10:31] LABS: BUN/Creatinine Ratio 12.5 (10.0-20.0); Blood Urea Nitrogen 11 mg/dL (9-23)
--- NOTE | 2024-08-16 10:40 | DVHPN2 ---
Progress Note - Dictate Date Seen: Aug 16, 2024 Has the PT tested + for MRSA If YES, has PT been informed?: No Medical Necessity Reason Pt with a Central, PICC or Fol: No vital signs Vital Sign Date Time Temp Pulse Resp B/P (MAP) Pulse Ox O2 Delivery O2 Flow Rate FiO2 08/16/24 09:37 98.3 89 18 136/91 (106) 95 98.3 08/15/24 20:00 Room Air* 0 21 Total Intake and Output 08/15/24 08/15/24 08/16/24 15:00 23:00 07:00 Intake Total 250 ml 1350 ml 1950 ml Output Total 1900 ml 1800 ml Balance 250 ml -550 ml 150 ml medications Current Medications Medications Dose Ordered Sig/Martha Route Start Time Stop Time Status Last Admin Dose Admin Temazepam 15 mg QHSP PRN PO 08/11/24 21:45 Docusate Sodium 100 mg BIDPRN PRN PO 08/11/24 21:45 Enoxaparin Sodium 40 mg DAILY SC 08/12/24 10:00 08/16/24 09:17 40 MG Acetaminophen 650 mg Q6HP PRN PO 08/11/24 21:45 08/14/24 23:02 650 MG Nitroglycerin 0.4 mg Q5MINP PRN SL 08/11/24 21:45 Morphine Sulfate 2 mg Q30M PRN IV 08/11/24 21:45 Hydralazine HCl 10 mg Q6HP PRN IV 08/11/24 22:00 08/12/24 01:04 10 MG Famotidine 20 mg BID PO 08/11/24 22:00 08/16/24 09:15 20 MG Vancomycin HCl 0 ml @ 0 mls/hr UD IV 08/12/24 01:00 Metoprolol Tartrate 50 mg BID PO 08/12/24 13:45 08/16/24 09:15 50 MG Losartan Potassium 50 mg BID PO 08/12/24 13:45 08/16/24 09:16 50 MG Furosemide 40 mg BIDD IV 08/13/24 18:00 08/16/24 05:56 40 MG Hydromorphone HCl 1 mg Q4HPRN PRN IV 08/15/24 11:00 08/16/24 06:38 1 MG Acetaminophen/ Hydrocodone Bitart 1 tab Q4HP PRN PO 08/15/24 11:00 Ceftriaxone Sodium/Dextrose 50 ml @ 50 mls/hr DAILY IV 08/16/24 10:00 08/16/24 09:18 50 MLS/HR laboratory and microbiology Laboratory Tests 08/16/24 09:47 Test 08/16/24 09:47 Range/Units Serum Glucose Pending Assessment/Plan Patient is a 43-year-old gentleman who presented with weeks of worsening leg swellings which has slowly worsened. On arrival blood pressure was high and in 200s. Cardiology was involved to rule out heart failure. Patient himself denies any previous cardiac history. Patient himself denies any previous cardiac evaluation. Patient denies any chest pains. Patient mentions bilateral leg swellings which started around 1 year back. Does complain of exertional dyspnea. Denies PND. Complains of orthopnea. Does use methamphetamine regularly. Denies loss of consciousness. Denies palpitations. Obese gentleman. Not in acute distress. No gross JVD. Mucosa is pink and wet. No carotid bruit. No goiter. Lungs reveal scattered rhonchi. No rales. Cardiac: Regular, no thrill/gallop. Abdomen is obese. There is no gross mass. Extremities reveal 3+ edema bilaterally. Past medical history includes obesity, hypertension hyperlipidemia, history of cellulitis of lower extremity, old history of pancreatitis, history of polysubstance abuse and old history of cholecystectomy. He smokes cigarettes and uses marijuana and methamphetamine. Denies relevant family history. Denies early in the family. Denies CVA/GA in the family WBC: 13.0 - 14.5 - 7.4 - 6.9 - 7.5 D-dimer: 0.44 (within normal limits) Potassium: 4.2 - 3.7 - 3.9 - 4.2 - 4.0 Creatinine: 1.15 - 1.01 - 0.99 - 1.05 - 0.94 - 0.90 - 0.88 Lactic acid: 1.7 BNP: 52.55 Urine toxicology was positive for opiates and methamphetamine Chest x-ray revealed: IMPRESSION: 1. No acute cardiopulmonary disease. Venous Doppler of lower extremities revealed: Impression: 1. Common femoral vein saphenous vein proximal superficial femoral vein were not visualized because of patient's inability to take their pants all. 2. Mid superficial femoral vein and popliteal vein and trifurcation appeared normal 3. If clinical concern/symptoms persist or worsen, short-interval follow-up study is suggested. Repeat venous duplex of lower ext revealed: IMPRESSION: 1. No sonographic evidence of deep vein thrombosis in either lower extremity. 2. Likely reactive right inguinal enlarged lymph node CTA of lungs revealed: IMPRESSION: 1. Diffuse bronchial wall thickening, nonspecific, but can be seen in the setting of chronic large airways disease, typically bronchitis or asthma. Findings can additionally be seen in acute viral bronchitis. 2. No pulmonary emboli 3. Fatty liver with mild nodular contour, correlate for fibrosis- early cirrhosis Arterial duplex of lower ext revealed: 1. Widely patent arteries in the bilateral lower extremities multiphasic high resistance waveforms. 2. Slight increase in velocities in the right common femoral and superficial femoral arteries although is patent on color doppler imaging. By velocity this could reflect a 30-49% stenosis. 3. Moderate subcutaneous edema in the right lower extremity and mild subcutaneous edema in the left lower extremity. CT scan with contrast of right lower ext: IMPRESSION: Findings are suggestive of cellulitis. No focal fluid collection/ abscess. No acute fracture or dislocation. EKG revealed: Sinus rhythm, right bundle-branch block Telemetry revealed sinus rhythm with occasional PVCs Echocardiogram revealed: Left ventricle: Mild concentric left ventricular hypertrophy was seen. LVEF was around 60-65%. There was no gross wall motion abnormality. Right ventricle: Right ventricle was dilated with preserved systolic function. Left atrium was mildly dilated. Right atrium was dilated. Aortic valve: Aortic valve was not well visualized. There was no aortic insufficiency/stenosis. There was no mitral/tricuspid regurgitation. There was trace pulmonary valve insufficiency. As there was no good tricuspid regurgitation jet, right ventricular systolic pressure could not be estimated. Patient is a 43-year-old gentleman who presented with bilateral leg swellings. Does have history of cellulitis of leg. Presentation questions worsening cellulitis. It seems that the patient has been experiencing bilateral leg swelling for the past year. Presentation questions component of heart failure/pulmonary hypertension. It is of note that BNP is normal and is against any component of heart failure. Still, as the patient is obese BNP can be falsely normal in a patient with heart failure. Echocardiogram reveals right- sided chamber dilatation which questions some component of pulmonary hypertension. Unfortunately, there was no TR jet and pulmonary artery pressure could not be estimated. PE was ruled out by CTA. R/O bronchitis. Assessment has been cellulitis. Patient is on antibiotics and being followed by ID. Bilateral leg swellings Cellulitis, lower ext Obesity Hypertension, on arrival Polysubstance abuse Cardiac suggestion for management: Manage on telemetry IV diuresis for now is suggested Follow-up electrolytes and kidney function tests and correct abnormalities Follow-up vital signs and treat hypertension Management of cellulitis (antibiotics) as per primary team / ID Lifestyle and risk factor modifications advised. Patient was counseled to avoid substance abuse. Patient was counseled to be compliant with meds Further evaluation and management depends on the above and clinical course A total of 55 minutes was spent reviewing the patient record, examining the patient, making a diagnostic and therapeutic plan, discussing this plan with medical personnel, following up on diagnostic studies and following the patient for clinical stability excluding any and all procedures. At least 50% of this time was spent in direct, [id number] contact. Thank you for allowing me to participate in this patient's care. Further recommendations will depend on patient's clinical course. Please do not hesitate to contact me if you have any questions or concerns. This medical document was created using electronic medical record system with [employer] computerized dictation system. Although this document has been carefully reviewed, there may still be some phonetic and typographical errors. These areas are purely typographical due to the imperfection of the software programs, and do not reflect any compromise in the patient's medical care. Plan discussed with: Patient, Other (nurse) NANCY NAVARRO MD Aug 16, 2024 10:40
[2024-08-16 10:44] LABS: Glucose 159 mg/dL (74-106)
--- NOTE | 2024-08-16 11:54 | DVHPN2 ---
Progress Note - Dictate Date Seen: Aug 16, 2024 Has the PT tested + for MRSA If YES, has PT been informed?: No Medical Necessity Reason Pt with a Central, PICC or Fol: No vital signs Vital Sign Date Time Temp Pulse Resp B/P (MAP) Pulse Ox O2 Delivery O2 Flow Rate FiO2 08/16/24 10:54 85 19 121/95 08/16/24 09:37 98.3 95 98.3 08/16/24 08:05 Room Air* 0 21 Total Intake and Output 08/15/24 08/15/24 08/16/24 15:00 23:00 07:00 Intake Total 250 ml 1350 ml 1950 ml Output Total 1900 ml 1800 ml Balance 250 ml -550 ml 150 ml medications Current Medications Medications Dose Ordered Sig/Martha Route Start Time Stop Time Status Last Admin Dose Admin Temazepam 15 mg QHSP PRN PO 08/11/24 21:45 Docusate Sodium 100 mg BIDPRN PRN PO 08/11/24 21:45 Enoxaparin Sodium 40 mg DAILY SC 08/12/24 10:00 08/16/24 09:17 40 MG Acetaminophen 650 mg Q6HP PRN PO 08/11/24 21:45 08/14/24 23:02 650 MG Nitroglycerin 0.4 mg Q5MINP PRN SL 08/11/24 21:45 Morphine Sulfate 2 mg Q30M PRN IV 08/11/24 21:45 Hydralazine HCl 10 mg Q6HP PRN IV 08/11/24 22:00 08/12/24 01:04 10 MG Famotidine 20 mg BID PO 08/11/24 22:00 08/16/24 09:15 20 MG Vancomycin HCl 0 ml @ 0 mls/hr UD IV 08/12/24 01:00 Metoprolol Tartrate 50 mg BID PO 08/12/24 13:45 08/16/24 09:15 50 MG Losartan Potassium 50 mg BID PO 08/12/24 13:45 08/16/24 09:16 50 MG Furosemide 40 mg BIDD IV 08/13/24 18:00 08/16/24 05:56 40 MG Hydromorphone HCl 1 mg Q4HPRN PRN IV 08/15/24 11:00 08/16/24 10:54 1 MG Acetaminophen/ Hydrocodone Bitart 1 tab Q4HP PRN PO 08/15/24 11:00 Ceftriaxone Sodium/Dextrose 50 ml @ 50 mls/hr DAILY IV 08/16/24 10:00 08/16/24 09:18 50 MLS/HR Vancomycin HCl 150 ml @ 150 mls/hr Q12H IV 08/16/24 12:00 objective General Appearance: alert, no distress HEENT: EOMI, PERRLA, normal external inspect of ears, no icterus, no nasal drainage Neck: no carotid bruit, no jugular venous distention (JVD), no lymphadenopathy Chest: normal thorax Respiratory: clear to auscultation, normal air movement Cardiovascular: regular rate and rhythm, no diastolic murmur, no jugular venous distention (JVD), no rub, no systolic murmur Abdominal: soft, no hepatomegaly, no mass, no splenomegaly, no tenderness Genitourinary: grossly normal external Musculoskeletal: no joint tenderness, no swelling Extremities: normal pulses, no calf tenderness, no clubbing, no cyanosis Skin: no bruising, no jaundice, no rash Neurological: alert, No focal deficit laboratory and microbiology Laboratory Tests 08/16/24 09:47 Test 08/16/24 09:47 Range/Units Serum Glucose 159 H 74-106 mg/dL Problem List 1. Sepsis Cardiology consult, cardiac diet 2. BLE Cellulitis IV abx 3. Obesity Diet education, monitoring 4. Benign essential HTN Antihypertensives 5. Hx polysubstance abuse Urinalysis Assessment/Plan Subjective: Patient is awake and alert. Objective: Patient was admitted for sepsis related to cellulitis to his lower extremity. Patient has severe swelling to bilateral lower extremities, worse on the right. Patient now has some noted wrinkles and his swelling has greatly diminished as well as erythema. Patient was seen by infectious disease. Patient is currently on vancomycin and Rocephin. Patient was also started on Lasix twice daily and he was seen by cardiology. Patient has a history of polysubstance abuse and he was positive for amphetamines. Plan: Continue current treatment. Patient states the current pain regimen is working well for him. Continue antibiotics with vancomycin and Rocephin. Continue diuretics. Plan discussed with: Patient, Other ECTOR SEAMAN NP Aug 16, 2024 11:54
[2024-08-16] MEDS: VANCOMYCIN 750mg/150ml 150 ML IV SCH (14:05)
[2024-08-17] VITALS (9 sets, daily range): BP systolic 112–149; BP diastolic 73–96; PULSE 81–106; RESP 16–20; TEMP 97.4–98.7; O2SAT 93–99
--- NOTE | 2024-08-17 07:39 | DVHPN2 ---
Progress Note - Dictate Date Seen: Aug 17, 2024 Has the PT tested + for MRSA If YES, has PT been informed?: No Medical Necessity Reason Pt with a Central, PICC or Fol: No vital signs Vital Sign Date Time Temp Pulse Resp B/P (MAP) Pulse Ox O2 Delivery O2 Flow Rate FiO2 08/17/24 05:59 112/77 08/17/24 05:00 98.4 81 18 95 98.4 08/16/24 20:00 Room Air* 0 21 Total Intake and Output 08/16/24 08/16/24 08/17/24 15:00 23:00 07:00 Intake Total 50 ml 1850 ml 1750 ml Output Total 1900 ml 1200 ml Balance 50 ml -50 ml 550 ml medications Current Medications Medications Dose Ordered Sig/Martha Route Start Time Stop Time Status Last Admin Dose Admin Temazepam 15 mg QHSP PRN PO 08/11/24 21:45 Docusate Sodium 100 mg BIDPRN PRN PO 08/11/24 21:45 Enoxaparin Sodium 40 mg DAILY SC 08/12/24 10:00 08/16/24 09:17 40 MG Acetaminophen 650 mg Q6HP PRN PO 08/11/24 21:45 08/14/24 23:02 650 MG Nitroglycerin 0.4 mg Q5MINP PRN SL 08/11/24 21:45 Morphine Sulfate 2 mg Q30M PRN IV 08/11/24 21:45 Hydralazine HCl 10 mg Q6HP PRN IV 08/11/24 22:00 08/12/24 01:04 10 MG Famotidine 20 mg BID PO 08/11/24 22:00 08/16/24 22:13 20 MG Vancomycin HCl 0 ml @ 0 mls/hr UD IV 08/12/24 01:00 Metoprolol Tartrate 50 mg BID PO 08/12/24 13:45 08/16/24 22:14 50 MG Losartan Potassium 50 mg BID PO 08/12/24 13:45 08/16/24 22:13 50 MG Furosemide 40 mg BIDD IV 08/13/24 18:00 08/17/24 05:59 40 MG Hydromorphone HCl 1 mg Q4HPRN PRN IV 08/15/24 11:00 08/17/24 04:15 1 MG Acetaminophen/ Hydrocodone Bitart 1 tab Q4HP PRN PO 08/15/24 11:00 Ceftriaxone Sodium/Dextrose 50 ml @ 50 mls/hr DAILY IV 08/16/24 10:00 08/16/24 09:18 50 MLS/HR Vancomycin HCl 150 ml @ 150 mls/hr Q12H IV 08/16/24 12:00 08/17/24 00:27 150 MLS/HR laboratory and microbiology Laboratory Tests 08/16/24 09:47 Test 08/16/24 09:47 Range/Units Serum Glucose 159 H 74-106 mg/dL Assessment/Plan Patient is a 43-year-old gentleman who presented with weeks of worsening leg swellings which has slowly worsened. On arrival blood pressure was high and in 200s. Cardiology was involved to rule out heart failure. Patient himself denies any previous cardiac history. Patient himself denies any previous cardiac evaluation. Patient denies any chest pains. Patient mentions bilateral leg swellings which started around 1 year back. Does complain of exertional dyspnea. Denies PND. Complains of orthopnea. Does use methamphetamine regularly. Denies loss of consciousness. Denies palpitations. Obese gentleman. Not in acute distress. No gross JVD. Mucosa is pink and wet. No carotid bruit. No goiter. Lungs reveal scattered rhonchi. No rales. Cardiac: Regular, no thrill/gallop. Abdomen is obese. There is no gross mass. Extremities reveal 3+ edema bilaterally. Past medical history includes obesity, hypertension hyperlipidemia, history of cellulitis of lower extremity, old history of pancreatitis, history of polysubstance abuse and old history of cholecystectomy. He smokes cigarettes and uses marijuana and methamphetamine. Denies relevant family history. Denies early in the family. Denies CVA/[place] in the family WBC: 13.0 - 14.5 - 7.4 - 6.9 - 7.5 D-dimer: 0.44 (within normal limits) Potassium: 4.2 - 3.7 - 3.9 - 4.2 - 4.0 Creatinine: 1.15 - 1.01 - 0.99 - 1.05 - 0.94 - 0.90 - 0.88 Lactic acid: 1.7 BNP: 52.55 Urine toxicology was positive for opiates and methamphetamine Chest x-ray revealed: IMPRESSION: 1. No acute cardiopulmonary disease. Venous Doppler of lower extremities revealed: Impression: 1. Common femoral vein saphenous vein proximal superficial femoral vein were not visualized because of patient's inability to take their pants all. 2. Mid superficial femoral vein and popliteal vein and trifurcation appeared normal 3. If clinical concern/symptoms persist or worsen, short-interval follow-up study is suggested. Repeat venous duplex of lower ext revealed: IMPRESSION: 1. No sonographic evidence of deep vein thrombosis in either lower extremity. 2. Likely reactive right inguinal enlarged lymph node CTA of lungs revealed: IMPRESSION: 1. Diffuse bronchial wall thickening, nonspecific, but can be seen in the setting of chronic large airways disease, typically bronchitis or asthma. Findings can additionally be seen in acute viral bronchitis. 2. No pulmonary emboli 3. Fatty liver with mild nodular contour, correlate for fibrosis- early cirrhosis Arterial duplex of lower ext revealed: 1. Widely patent arteries in the bilateral lower extremities multiphasic high resistance waveforms. 2. Slight increase in velocities in the right common femoral and superficial femoral arteries although is patent on color doppler imaging. By velocity this could reflect a 30-49% stenosis. 3. Moderate subcutaneous edema in the right lower extremity and mild subcutaneous edema in the left lower extremity. CT scan with contrast of right lower ext: IMPRESSION: Findings are suggestive of cellulitis. No focal fluid collection/ abscess. No acute fracture or dislocation. EKG revealed: Sinus rhythm, right bundle-branch block Telemetry revealed sinus rhythm with occasional PVCs Echocardiogram revealed: Left ventricle: Mild concentric left ventricular hypertrophy was seen. LVEF was around 60-65%. There was no gross wall motion abnormality. Right ventricle: Right ventricle was dilated with preserved systolic function. Left atrium was mildly dilated. Right atrium was dilated. Aortic valve: Aortic valve was not well visualized. There was no aortic insufficiency/stenosis. There was no mitral/tricuspid regurgitation. There was trace pulmonary valve insufficiency. As there was no good tricuspid regurgitation jet, right ventricular systolic pressure could not be estimated. Patient is a 43-year-old gentleman who presented with bilateral leg swellings. Does have history of cellulitis of leg. Presentation questions worsening cellulitis. It seems that the patient has been experiencing bilateral leg swelling for the past year. Presentation questions component of heart failure/pulmonary hypertension. It is of note that BNP is normal and is against any component of heart failure. Still, as the patient is obese BNP can be falsely normal in a patient with heart failure. Echocardiogram reveals right- sided chamber dilatation which questions some component of pulmonary hypertension. Unfortunately, there was no TR jet and pulmonary artery pressure could not be estimated. PE was ruled out by CTA. R/O bronchitis. Assessment has been cellulitis. Patient is on antibiotics and being followed by ID. Bilateral leg swellings Cellulitis, lower ext Obesity Hypertension, on arrival Polysubstance abuse Cardiac suggestion for management: Manage on telemetry IV diuresis for now is suggested Follow-up electrolytes and kidney function tests and correct abnormalities Follow-up vital signs and treat hypertension Management of cellulitis (antibiotics) as per primary team / ID Lifestyle and risk factor modifications advised. Patient was counseled to avoid substance abuse. Patient was counseled to be compliant with meds Further evaluation and management depends on the above and clinical course A total of 55 minutes was spent reviewing the patient record, examining the patient, making a diagnostic and therapeutic plan, discussing this plan with medical personnel, following up on diagnostic studies and following the patient for clinical stability excluding any and all procedures. At least 50% of this time was spent in direct, [id number] contact. Thank you for allowing me to participate in this patient's care. Further recommendations will depend on patient's clinical course. Please do not hesitate to contact me if you have any questions or concerns. This medical document was created using electronic medical record system with [employer] computerized dictation system. Although this document has been carefully reviewed, there may still be some phonetic and typographical errors. These areas are purely typographical due to the imperfection of the software programs, and do not reflect any compromise in the patient's medical care. Dietary Evaluation Review Comments: 1) Refer to CDE for weight management on DC 2) Monitor wt trend, PO intake, lab values Expected Outcomes/Goals: To meet >75% estimated needs Fu 3-5 days Plan discussed with: Patient, Other (nurse) NANCY NAVARRO MD Aug 17, 2024 07:39
--- NOTE | 2024-08-17 15:12 | DVHPN2 ---
Progress Note - Dictate Date Seen: Aug 17, 2024 Has the PT tested + for MRSA If YES, has PT been informed?: No Medical Necessity Reason Pt with a Central, PICC or Fol: No vital signs Vital Sign Date Time Temp Pulse Resp B/P (MAP) Pulse Ox O2 Delivery O2 Flow Rate FiO2 08/17/24 13:31 91 19 145/92 08/17/24 13:12 97.4 97 97.4 08/17/24 08:10 Room Air* 0 21 Total Intake and Output 08/16/24 08/16/24 08/17/24 15:00 23:00 07:00 Intake Total 50 ml 1850 ml 1750 ml Output Total 1900 ml 1200 ml Balance 50 ml -50 ml 550 ml medications Current Medications Medications Dose Ordered Sig/Martha Route Start Time Stop Time Status Last Admin Dose Admin Temazepam 15 mg QHSP PRN PO 08/11/24 21:45 Docusate Sodium 100 mg BIDPRN PRN PO 08/11/24 21:45 Enoxaparin Sodium 40 mg DAILY SC 08/12/24 10:00 08/17/24 10:01 40 MG Acetaminophen 650 mg Q6HP PRN PO 08/11/24 21:45 08/14/24 23:02 650 MG Nitroglycerin 0.4 mg Q5MINP PRN SL 08/11/24 21:45 Morphine Sulfate 2 mg Q30M PRN IV 08/11/24 21:45 Hydralazine HCl 10 mg Q6HP PRN IV 08/11/24 22:00 08/12/24 01:04 10 MG Famotidine 20 mg BID PO 08/11/24 22:00 08/17/24 10:01 20 MG Vancomycin HCl 0 ml @ 0 mls/hr UD IV 08/12/24 01:00 Metoprolol Tartrate 50 mg BID PO 08/12/24 13:45 08/17/24 10:01 50 MG Losartan Potassium 50 mg BID PO 08/12/24 13:45 08/17/24 10:02 50 MG Furosemide 40 mg BIDD IV 08/13/24 18:00 08/17/24 05:59 40 MG Hydromorphone HCl 1 mg Q4HPRN PRN IV 08/15/24 11:00 08/17/24 13:31 1 MG Acetaminophen/ Hydrocodone Bitart 1 tab Q4HP PRN PO 08/15/24 11:00 Ceftriaxone Sodium/Dextrose 50 ml @ 50 mls/hr DAILY IV 08/16/24 10:00 08/17/24 10:01 50 MLS/HR Vancomycin HCl 150 ml @ 150 mls/hr Q12H IV 08/16/24 12:00 08/17/24 11:52 150 MLS/HR objective General Appearance: alert, no distress HEENT: EOMI, PERRLA, normal external inspect of ears, no icterus, no nasal drainage Neck: no carotid bruit, no jugular venous distention (JVD), no lymphadenopathy Chest: normal thorax Respiratory: clear to auscultation, normal air movement Cardiovascular: regular rate and rhythm, no diastolic murmur, no jugular venous distention (JVD), no rub, no systolic murmur Abdominal: soft, no hepatomegaly, no mass, no splenomegaly, no tenderness Genitourinary: grossly normal external Musculoskeletal: no joint tenderness, no swelling Extremities: normal pulses, no calf tenderness, no clubbing, no cyanosis Skin: no bruising, no jaundice, no rash Neurological: alert, No focal deficit laboratory and microbiology Laboratory Tests 08/16/24 09:47 Test 08/16/24 09:47 Range/Units Serum Glucose 159 H 74-106 mg/dL Problem List 1. Sepsis Cardiology consult, cardiac diet 2. BLE Cellulitis IV abx 3. Obesity Diet education, monitoring 4. Benign essential HTN Antihypertensives 5. Hx polysubstance abuse Urinalysis Assessment/Plan Subjective: Patient is awake and alert. Objective: Patient was admitted for severe cellulitis first to his right lower extremity. Ultrasound venous Doppler is negative times two for DVT. Patient has a history of poly substance abuse. CT of the right lower extremity is negative for abscess. Plan: Continue antibiotics with Zosyn and vancomycin. Continue diuretics. Creatinine is stable and monitor daily labs. Replace electrolytes as needed. Dietary Evaluation Review Comments: 1) Refer to CDE for weight management on DC 2) Monitor wt trend, PO intake, lab values Expected Outcomes/Goals: To meet >75% estimated needs Fu 3-5 days Plan discussed with: Patient, Other ECTOR SEAMAN NP Aug 17, 2024 15:12
[2024-08-18] VITALS (8 sets, daily range): BP systolic 102–154; BP diastolic 61–128; PULSE 80–100; RESP 16–20; TEMP 97.7–98.3; O2SAT 91–97
--- NOTE | 2024-08-18 07:43 | DVHPN2 ---
Progress Note - Dictate Date Seen: Aug 18, 2024 Has the PT tested + for MRSA If YES, has PT been informed?: No Medical Necessity Reason Pt with a Central, PICC or Fol: No vital signs Vital Sign Date Time Temp Pulse Resp B/P (MAP) Pulse Ox O2 Delivery O2 Flow Rate FiO2 08/18/24 05:44 124/88 08/18/24 05:00 97.7 82 18 91 97.7 08/17/24 20:00 Nasal Cannula* 2 28 Total Intake and Output 08/17/24 08/17/24 08/18/24 15:00 23:00 07:00 Intake Total 200 ml 1000 ml 895 ml Output Total 1500 ml 1200 ml Balance 200 ml -500 ml -305 ml medications Current Medications Medications Dose Ordered Sig/Martha Route Start Time Stop Time Status Last Admin Dose Admin Temazepam 15 mg QHSP PRN PO 08/11/24 21:45 Docusate Sodium 100 mg BIDPRN PRN PO 08/11/24 21:45 Enoxaparin Sodium 40 mg DAILY SC 08/12/24 10:00 08/17/24 10:01 40 MG Acetaminophen 650 mg Q6HP PRN PO 08/11/24 21:45 08/14/24 23:02 650 MG Nitroglycerin 0.4 mg Q5MINP PRN SL 08/11/24 21:45 Morphine Sulfate 2 mg Q30M PRN IV 08/11/24 21:45 Hydralazine HCl 10 mg Q6HP PRN IV 08/11/24 22:00 08/12/24 01:04 10 MG Famotidine 20 mg BID PO 08/11/24 22:00 08/17/24 21:22 20 MG Vancomycin HCl 0 ml @ 0 mls/hr UD IV 08/12/24 01:00 Metoprolol Tartrate 50 mg BID PO 08/12/24 13:45 08/17/24 21:23 50 MG Losartan Potassium 50 mg BID PO 08/12/24 13:45 08/17/24 21:23 50 MG Furosemide 40 mg BIDD IV 08/13/24 18:00 08/18/24 05:44 40 MG Hydromorphone HCl 1 mg Q4HPRN PRN IV 08/15/24 11:00 08/18/24 03:23 1 MG Acetaminophen/ Hydrocodone Bitart 1 tab Q4HP PRN PO 08/15/24 11:00 Ceftriaxone Sodium/Dextrose 50 ml @ 50 mls/hr DAILY IV 08/16/24 10:00 08/17/24 10:01 50 MLS/HR Vancomycin HCl 150 ml @ 150 mls/hr Q12H IV 08/16/24 12:00 08/18/24 00:32 150 MLS/HR laboratory and microbiology Laboratory Tests 08/18/24 05:50 08/16/24 09:47 Test 08/16/24 09:47 Range/Units Serum Glucose 159 H 74-106 mg/dL Assessment/Plan Patient is a 43-year-old gentleman who presented with weeks of worsening leg swellings which has slowly worsened. On arrival blood pressure was high and in 200s. Cardiology was involved to rule out heart failure. Patient himself denies any previous cardiac history. Patient himself denies any previous cardiac evaluation. Patient denies any chest pains. Patient mentions bilateral leg swellings which started around 1 year back. Does complain of exertional dyspnea. Denies PND. Complains of orthopnea. Does use methamphetamine regularly. Denies loss of consciousness. Denies palpitations. Obese gentleman. Not in acute distress. No gross JVD. Mucosa is pink and wet. No carotid bruit. No goiter. Lungs reveal scattered rhonchi. No rales. Cardiac: Regular, no thrill/gallop. Abdomen is obese. There is no gross mass. Extremities reveal 3+ edema bilaterally. Past medical history includes obesity, hypertension hyperlipidemia, history of cellulitis of lower extremity, old history of pancreatitis, history of polysubstance abuse and old history of cholecystectomy. He smokes cigarettes and uses marijuana and methamphetamine. Denies relevant family history. Denies early in the family. Denies CVA/[place] in the family WBC: 13.0 - 14.5 - 7.4 - 6.9 - 7.5 D-dimer: 0.44 (within normal limits) Potassium: 4.2 - 3.7 - 3.9 - 4.2 - 4.0 Creatinine: 1.15 - 1.01 - 0.99 - 1.05 - 0.94 - 0.90 - 0.88 - 0.92 Lactic acid: 1.7 BNP: 52.55 Urine toxicology was positive for opiates and methamphetamine Chest x-ray revealed: IMPRESSION: 1. No acute cardiopulmonary disease. Venous Doppler of lower extremities revealed: Impression: 1. Common femoral vein saphenous vein proximal superficial femoral vein were not visualized because of patient's inability to take their pants all. 2. Mid superficial femoral vein and popliteal vein and trifurcation appeared normal 3. If clinical concern/symptoms persist or worsen, short-interval follow-up study is suggested. Repeat venous duplex of lower ext revealed: IMPRESSION: 1. No sonographic evidence of deep vein thrombosis in either lower extremity. 2. Likely reactive right inguinal enlarged lymph node CTA of lungs revealed: IMPRESSION: 1. Diffuse bronchial wall thickening, nonspecific, but can be seen in the setting of chronic large airways disease, typically bronchitis or asthma. Findings can additionally be seen in acute viral bronchitis. 2. No pulmonary emboli 3. Fatty liver with mild nodular contour, correlate for fibrosis- early cirrhosis Arterial duplex of lower ext revealed: 1. Widely patent arteries in the bilateral lower extremities multiphasic high resistance waveforms. 2. Slight increase in velocities in the right common femoral and superficial femoral arteries although is patent on color doppler imaging. By velocity this could reflect a 30-49% stenosis. 3. Moderate subcutaneous edema in the right lower extremity and mild subcutaneous edema in the left lower extremity. CT scan with contrast of right lower ext: IMPRESSION: Findings are suggestive of cellulitis. No focal fluid collection/ abscess. No acute fracture or dislocation. EKG revealed: Sinus rhythm, right bundle-branch block Telemetry revealed sinus rhythm with occasional PVCs Echocardiogram revealed: Left ventricle: Mild concentric left ventricular hypertrophy was seen. LVEF was around 60-65%. There was no gross wall motion abnormality. Right ventricle: Right ventricle was dilated with preserved systolic function. Left atrium was mildly dilated. Right atrium was dilated. Aortic valve: Aortic valve was not well visualized. There was no aortic insufficiency/stenosis. There was no mitral/tricuspid regurgitation. There was trace pulmonary valve insufficiency. As there was no good tricuspid regurgitation jet, right ventricular systolic pressure could not be estimated. Patient is a 43-year-old gentleman who presented with bilateral leg swellings. Does have history of cellulitis of leg. Presentation questions worsening cellulitis. It seems that the patient has been experiencing bilateral leg swelling for the past year. Presentation questions component of heart failure/pulmonary hypertension. It is of note that BNP is normal and is against any component of heart failure. Still, as the patient is obese BNP can be falsely normal in a patient with heart failure. Echocardiogram reveals right- sided chamber dilatation which questions some component of pulmonary hypertension. Unfortunately, there was no TR jet and pulmonary artery pressure could not be estimated. PE was ruled out by CTA. R/O bronchitis. Assessment has been cellulitis. Patient is on antibiotics and being followed by ID. Bilateral leg swellings Cellulitis, lower ext Obesity Hypertension, on arrival Polysubstance abuse Cardiac suggestion for management: Manage on telemetry IV diuresis for now is suggested Follow-up electrolytes and kidney function tests and correct abnormalities Follow-up vital signs and treat hypertension Management of cellulitis (antibiotics) as per primary team / ID Lifestyle and risk factor modifications advised. Patient was counseled to avoid substance abuse. Patient was counseled to be compliant with meds Further evaluation and management depends on the above and clinical course A total of 55 minutes was spent reviewing the patient record, examining the patient, making a diagnostic and therapeutic plan, discussing this plan with medical personnel, following up on diagnostic studies and following the patient for clinical stability excluding any and all procedures. At least 50% of this time was spent in direct, [id number] contact. Thank you for allowing me to participate in this patient's care. Further recommendations will depend on patient's clinical course. Please do not hesitate to contact me if you have any questions or concerns. This medical document was created using electronic medical record system with [employer] computerized dictation system. Although this document has been carefully reviewed, there may still be some phonetic and typographical errors. These areas are purely typographical due to the imperfection of the software programs, and do not reflect any compromise in the patient's medical care. Dietary Evaluation Review Comments: 1) Refer to CDE for weight management on DC 2) Monitor wt trend, PO intake, lab values Expected Outcomes/Goals: To meet >75% estimated needs Fu 3-5 days Plan discussed with: Patient, Other (nurse) NANCY NAVARRO MD Aug 18, 2024 07:43
--- NOTE | 2024-08-18 10:24 | DVHPN2 ---
Progress Note - Dictate Date Seen: Aug 18, 2024 Has the PT tested + for MRSA If YES, has PT been informed?: No Medical Necessity Reason Pt with a Central, PICC or Fol: No vital signs Vital Sign Date Time Temp Pulse Resp B/P (MAP) Pulse Ox O2 Delivery O2 Flow Rate FiO2 08/18/24 05:44 124/88 08/18/24 05:00 97.7 82 18 91 97.7 08/17/24 20:00 Nasal Cannula* 2 28 Total Intake and Output 08/17/24 08/17/24 08/18/24 15:00 23:00 07:00 Intake Total 200 ml 1000 ml 895 ml Output Total 1500 ml 1200 ml Balance 200 ml -500 ml -305 ml medications Current Medications Medications Dose Ordered Sig/Martha Route Start Time Stop Time Status Last Admin Dose Admin Temazepam 15 mg QHSP PRN PO 08/11/24 21:45 Docusate Sodium 100 mg BIDPRN PRN PO 08/11/24 21:45 Enoxaparin Sodium 40 mg DAILY SC 08/12/24 10:00 08/17/24 10:01 40 MG Acetaminophen 650 mg Q6HP PRN PO 08/11/24 21:45 08/14/24 23:02 650 MG Nitroglycerin 0.4 mg Q5MINP PRN SL 08/11/24 21:45 Morphine Sulfate 2 mg Q30M PRN IV 08/11/24 21:45 Hydralazine HCl 10 mg Q6HP PRN IV 08/11/24 22:00 08/12/24 01:04 10 MG Famotidine 20 mg BID PO 08/11/24 22:00 08/17/24 21:22 20 MG Vancomycin HCl 0 ml @ 0 mls/hr UD IV 08/12/24 01:00 Metoprolol Tartrate 50 mg BID PO 08/12/24 13:45 08/17/24 21:23 50 MG Losartan Potassium 50 mg BID PO 08/12/24 13:45 08/17/24 21:23 50 MG Furosemide 40 mg BIDD IV 08/13/24 18:00 08/18/24 05:44 40 MG Hydromorphone HCl 1 mg Q4HPRN PRN IV 08/15/24 11:00 08/18/24 03:23 1 MG Acetaminophen/ Hydrocodone Bitart 1 tab Q4HP PRN PO 08/15/24 11:00 Ceftriaxone Sodium/Dextrose 50 ml @ 50 mls/hr DAILY IV 08/16/24 10:00 08/17/24 10:01 50 MLS/HR Vancomycin HCl 150 ml @ 150 mls/hr Q12H IV 08/16/24 12:00 08/18/24 00:32 150 MLS/HR objective General Appearance: alert, no distress HEENT: EOMI, PERRLA, normal external inspect of ears, no icterus, no nasal drainage Neck: no carotid bruit, no jugular venous distention (JVD), no lymphadenopathy Chest: normal thorax Respiratory: clear to auscultation, normal air movement Cardiovascular: regular rate and rhythm, no diastolic murmur, no jugular venous distention (JVD), no rub, no systolic murmur Abdominal: soft, no hepatomegaly, no mass, no splenomegaly, no tenderness Genitourinary: grossly normal external Musculoskeletal: no joint tenderness, no swelling Extremities: normal pulses, no calf tenderness, no clubbing, no cyanosis Skin: no bruising, no jaundice, no rash Neurological: alert, No focal deficit laboratory and microbiology Laboratory Tests 08/18/24 05:50 08/16/24 09:47 Test 08/16/24 09:47 Range/Units Serum Glucose 159 H 74-106 mg/dL Problem List 1. Sepsis Cardiology consult, cardiac diet 2. BLE Cellulitis IV abx 3. Obesity Diet education, monitoring 4. Benign essential HTN Antihypertensives 5. Hx polysubstance abuse Urinalysis Assessment/Plan Subjective Patient is awake and alert. Objective Patient is slowly having improvement to his right lower extremity for cellulitis. Patient's edema is also improving. He remains on Lasix 40 mg IV twice daily. Patient is on vancomycin and Zosyn. Plan Continue current treatment. ID recommendations appreciated. DC planning for possibly tomorrow on oral antibiotics. Dietary Evaluation Review Comments: 1) Refer to CDE for weight management on DC 2) Monitor wt trend, PO intake, lab values Expected Outcomes/Goals: To meet >75% estimated needs Fu 3-5 days Plan discussed with: Patient, Other ECTOR SEAMAN NP Aug 18, 2024 10:24
[2024-08-18] MEDS ORDERED: VANCOMYCIN 1GM/250ML KIT 250 ML IV SCH (14:00)
[2024-08-18] MEDS ORDERED: VANCOMYCIN 1GM/200ML PM 200 ML IV ONE (20:50)
[2024-08-18] MEDS: VANCOMYCIN 1GM/250ML KIT 250 ML IV SCH (21:05)
[2024-08-19 01:00] VITALS: BP 123/79; PULSE 92; RESP 18; TEMP 98.6; O2SAT 95
[2024-08-19] MEDS ORDERED: VANCOMYCIN 1GM/200ML PM 200 ML IV ONE (04:54)
[2024-08-19 05:00] VITALS: BP 120/92; PULSE 98; RESP 19; TEMP 97.9; O2SAT 94
[2024-08-19 06:56] LABS: Hematocrit 40.8 % (41.0-53.0); Hemoglobin 14.2 g/dL (13.5-17.5); Mean Corpuscular Hemoglobin 29.8 pg (28.0-32.0); Mean Corpuscular Volume 85.4 fL (80.0-100.0); Nucleated Red Blood Cells % 0.0 %
[2024-08-19 08:00] VITALS: PULSE 110
[2024-08-19 09:00] VITALS: BP 167/103; PULSE 112; RESP 20; TEMP 97.4; O2SAT 95
[2024-08-19 11:07] VITALS: BP 136/94; PULSE 97; RESP 18
[2024-08-19] MEDS ORDERED: FURO1TAB31 PO (12:21)
[2024-08-19] MEDS ORDERED: LOSA-534 PO (12:21)
[2024-08-19] MEDS ORDERED: HYDR-4798 PO (12:21)
[2024-08-19] MEDS ORDERED: AUG875T PO (12:21)
--- NOTE | 2024-08-19 12:25 | DVHDS2 ---
Discharge Summary Date of Admission Aug 11, 2024 at 21:45 Date of Discharge: Aug 19, 2024 Labs/Diagnostic Data: Laboratory Results Test 08/19/24 05:50 08/17/24 22:56 08/16/24 09:47 08/15/24 05:44 White Blood Count 7.6 10^3/uL (4.4-10.8) Red Blood Count 4.77 10^6/uL (4.5-5.90) Hemoglobin 14.2 g/dL (13.5-17.5) Hematocrit 40.8 % (41.0-53.0) Mean Corpuscular Volume 85.4 fL (80.0-100.0) Mean Corpuscular Hemoglobin 29.8 pg (28.0-32.0) Mean Corpuscular Hemoglobin Concent 34.9 g/dL (32.0-36.0) Red Cell Distribution Width 13.7 % (11.8-14.3) Platelet Count 269 10^3/uL (140-450) Mean Platelet Volume 8.1 fL (6.9-10.8) Neutrophils (%) (Auto) 51.2 % (37.0-80.0) Lymphocytes (%) (Auto) 36.3 % (10.0-50.0) Monocytes (%) (Auto) 8.9 % (0.0-12.0) Eosinophils (%) (Auto) 3.1 % (0.0-7.0) Basophils (%) (Auto) 0.5 % (0.0-2.0) Neutrophils # (Auto) 3.9 10 ^3/uL (1.6-8.6) Lymphocytes # (Auto) 2.8 10 ^3/uL (0.4-5.4) Monocytes # (Auto) 0.7 10 ^3/uL (0-1.3) Eosinophils # (Auto) 0.2 10 ^3/uL (0-0.8) Basophils # (Auto) 0 10 ^3/uL (0-0.2) Nucleated Red Blood Cells 0.0 % Creatinine 0.90 mg/dL (0.700-1.30) Glomerular Filtration Rate Calc 110 mL/min (>90) Vancomycin Level Trough 4.7 ug/mL (5-10) Sodium Level 136 mmol/L (136-145) Potassium Level 4.0 mmol/L (3.5-5.1) Chloride Level 99 mmol/L (98-107) Carbon Dioxide Level 29 mmol/L (20-31) Anion Gap 8 (5-15) Blood Urea Nitrogen 11 mg/dL (9-23) BUN/Creatinine Ratio 12.5 (10.0-20.0) Serum Glucose 159 mg/dL (74-106) Calcium Level 10.0 mg/dL (8.7-10.4) Random Vancomycin Level 6.5 ug/mL (5-10) Magnesium Level 2.3 mg/dL (1.6-2.6) Test 08/12/24 13:45 08/12/24 13:42 08/12/24 04:09 08/11/24 20:11 Urine Color Yellow (Yellow) Urine Clarity Clear (Clear) Urine pH 5.5 (5.0-9.0) Urine Specific [place] 1.028 (1.001-1.035) Urine Protein Trace (Negative) Urine Ketones Trace (Negative) Urine Blood Trace /uL (Negative) Urine Nitrite Negative (Negative) Urine Bilirubin Negative (Negative) Urine Urobilinogen Normal mg/dL (Negative) Urine Leukocyte Esterase Negative /uL (Negative) Urine RBC 4 /hpf (0 - 3) Urine Microscopic WBC 2 /HPF (0-3) Urine Squamous Epithelial Cells Few /hpf (<5) Urine Bacteria None seen /hpf (None Seen) Urine Glucose Normal mg/dL (Normal) Urine Opiates Screen Pos (NEGATIVE) Urine Fentanyl Screen Neg (NEGATIVE) Urine Barbiturates Screen Neg (NEGATIVE) Urine Phencyclidine Screen Neg (NEGATIVE) Urine Amphetamines Screen Pos (NEGATIVE) Urine Benzodiazepines Screen Neg (NEGATIVE) Urine Cocaine Screen Neg (NEGATIVE) Urine Cannabinoids Screen Neg (NEGATIVE) Hemoglobin A1c 5.8 % A1C (<5.7) Total Bilirubin 1.1 mg/dL (0.2-1.0) Aspartate Amino Transferase (AST) 19 U/L (<34) Alanine Aminotransferase (ALT) 33 U/L (7-40) Alkaline Phosphatase 50 U/L (46-116) B-Type Natriuretic Peptide 52.55 pg/mL (0-100) Total Protein 6.4 g/dL (5.7-8.2) Albumin 4.1 g/dL (3.2-4.8) Triglycerides Level 59 mg/dL (< 150) Cholesterol Level 134 mg/dL (< 200) LDL Cholesterol 90 mg/dL (< 100) HDL Cholesterol 42 mg/dL (40-59) D-Dimer, Quantitative 0.44 mg/L FEU (0.0-0.49) Lactic Acid Level 1.7 mmol/L (0.4-2.0) Other Laboratory Tests 08/19/24 05:50 08/16/24 09:47 Brief Hx & Hospital Course: Patient is a 43 y/o male with bilateral leg swelling x 2 days. Patient states that he has a PMHx of cellulitis, HLD, HTN, polysubstance abuse and pancreatitis. Patient states that he is also having LT-leg pain but denies any CP, SOB and N/V/D. Patient states that symptoms have become worse. Patient was admitted on 08/11/2024 for swelling to his lower extremities worse on RLE. Patient had severe cellulitis and his legs were edematous, red, and tender to touch. Patient was started on vancomycin and Zosyn. Patient was seen by cardiology for possible CHF. Patient BNP was within normal limits however patient is obese. Patient may still have some congestive heart failure with normal BNP on obese patient. Patient was started on diuretics. Patient lost over thirty pounds of fluid. Arterial ultrasound was done. Compartment syndrome was ruled out. Patient was seen by infection disease. Patient was cleared for discharge. He will start low dose Lasix outpatient and have close follow up with his PCP. Patient was also given a prescription for Augmentin for 7 additional days. Patient was instructed to abstain from methamphetamines. There were no complaints or new complaints upon discharge, all questions and concerns were answered. Patient was advised to return to the ER or call 911 if any headaches, dizziness, shortness of breath, chest pain, bleeding, fevers, or worsening of medical condition. Patient/Family was counseled about treatment plan, medications, possible side effects, patient verbalized understanding. All questions were answered to the best of my ability. The patient symptoms improved and they are okay to be DC. Condition at Discharge: Stable Final Diagnosis/Problems List cellulitis to left lower extremities, Sepsis, Obesity, Benign essential HTN, Hx polysubstance abuse Discharge Disposition: Home Discharge Instruct/Medications Diet: Cardiac 2g Na,low cholest Activity: No Restrictions, As Tolerated Follow Up/Referral: pcp 1 week Medications: as prescribed Scheduled Amoxicillin & Pot Clavulanate (Augmentin Tablet), 875 MG PO BID Furosemide (Lasix), 40 MG PO DAILY Losartan Potassium (Losartan Potassium), 50 MG PO BID Scheduled PRN Hydrocodone-Acetaminophen (Hydrocodone Bitartrate/AC 10-325 mg), 1 TAB PO Q6HPRN PRN Discontinued Medications Hydrocodone-Acetaminophen (Hydrocodone Bitartrate/AC 10-325 mg), 1 TAB PO Q6HP PRN Sulfamethoxazole W/Trimethopri (Bactrim Ds Tablet), 1 TAB PO BID Discharge Statement: "Patient was advised to return to the ER or call 911 if any headaches, dizziness, shortness of breath, chest pain, abdominal pain, bleeding, fevers, or worsening of medical condition. Patient was counseled about treatment plan, medications, possible side effects, patientverbalized understanding. All questions were answered to the best of my ability. This discharge took greater then 30 minutes in planning, reviewing documentation, counseling the patient, and discussing with other team members." ASSESSMENT ASSESSMENT Assessment cellulitis to left lower extremities ECTOR SEAMAN [employer] ALARM SUPERINTENDENT Aug 19, 2024 12:25
== END 2024-08-19 14:06 | disposition home or self-care (01) | DRG 720 ==
LOC: ER 19:30 → EDBD 19:30 → OVERFLOW 21:45 → TELE-WESTW 08-12 13:50
PROVIDERS: ADMIT Nurse Practitioner; ATTEND Nurse Practitioner
DX: A41.9 Sepsis, unspecified organism (principal); N17.0 Acute kidney failure with tubular necrosis; I50.31 Acute diastolic (congestive) heart failure; I11.0 Hypertensive heart disease with heart failure; K76.0 Fatty (change of) liver, not elsewhere classified; L03.115 Cellulitis of right lower limb; E66.9 Obesity, unspecified; Z68.30 Body mass index [BMI] 30.0-30.9, adult; F19.10 Other psychoactive substance abuse, uncomplicated; L03.116 Cellulitis of left lower limb; E78.5 Hyperlipidemia, unspecified; J20.8 Acute bronchitis due to other specified organisms; F17.210 Nicotine dependence, cigarettes, uncomplicated; F15.90 Other stimulant use, unspecified, uncomplicated; F12.90 Cannabis use, unspecified, uncomplicated; Z81.1 Family history of alcohol abuse and dependence; Z90.49 Acquired absence of other specified parts of digestive tract; Z87.19 Personal history of other diseases of the digestive system
CPT/HCPCS: 36415; 71045; 71275; 73701; 80048; 80053; 80061; 80202; 80307; 81001; 82565; 83036; 83605; 83735; 83880; 85025; 85379; 87040; 93005; 93306; 93925; 93970; 93971; G0378; J2543

== ENCOUNTER 2024-11-06 01:19 | Inpatient (IN) | payer OTHER ==
[~2024-11-06] VITALS: Ht 182.9 cm; Wt 121.8 kg
[~2024-11-06 01:19] MED LIST changes: +AUG875T PO; -BACDST PO; +FURO1TAB31 PO; +LOSA-534 PO
--- NOTE | 2024-11-06 02:06 | ED.PDOC ---
History of Present Illness(SKN HPI Comments This is a 44 year-old male who presents to the ED via EMS with a chief complaint of lower extremity swelling, feeling generally unwell, nausea over the past X1 week. Patient was seen in the ED on 08/11/24 for bilateral leg swelling where he was diagnosed with cellulitis of the left lower extremity. Patient reports taking antibiotics since initial diagnosis. Patient additionally reports a Hx of HTN, pancreatitis, polysubstance abuse, HLD and HTN. Patient has no further complaints at this time and otherwise denies further associated symptoms of chest pain, shortness of breath, nausea, vomiting, diarrhea, fever, or chills. REVIEW OF SYSTEMS: General: Positive fever, no chills, or fatigue HEENT: No sore throat, no earache, no congestion, no neck pain. Cardiac: No chest pain. No palpitations. Lungs: No shortness of breath, no cough. GI: Positive nausea, no vomiting, no diarrhea, no constipation, no abdominal pain : No dysuria, frequency, or urgency. No hematuria. Musculoskeletal: No joint pain , no joint swelling, lower extremity swelling Skin: Positive cellulitis of the Right lower extremity. Neuro: No headache, no dizziness, no weakness EXAM: General: Positive diaphoresis Awake, alert and oriented. Skin: Skin in warm, dry and intact. Appropriate color for ethnicity. HEENT: The head is normocephalic and atraumatic. Conjunctivae are clear without exudates or hemorrhage. Sclera is non-icteric. EOM are intact. No signs of nystagmus. Eyelids are normal in appearance without swelling or lesions. Oral mucosa is pink and moist Neck: The neck is supple with normal range of motion. No JVD. Cardiac: Rate, regular rhythm No murmurs, gallops, or rubs are auscultated. Respiratory: Positive Bilateral Rales. Abdominal: Abdomen is soft, non-tender without distention. Bowel sounds are present and normoactive in all four quadrants. Extremities: DP pulse of the R lower extremity. Bilateral lower extremity edema R>L. Extensive Erythema, warmth and tenderness of right lower extremity. Neurological: The patient is awake, alert and oriented to person, place, and time with normal speech. Speech is clear. There is no facial asymmetry. Psychiatric: Appropriate mood and affect. Good judgement and insight Chief Complaint: Extremity Swelling Time Seen by MD: 01:59 Primary Care Provider: NONE History of Present Illness: Medications, Allergies Allergies: Coded Allergies: NO KNOWN ALLERGIES (Unverified , 07/22/21) Home Meds Active Scripts Hydrocodone-Acetaminophen (Hydrocodone Bitartrate/AC 10-325 mg) 1 Tab Tab, 1 TAB PO Q6HPRN PRN for 5 Days, #20 TAB Prov:ECTOR SEAMAN TABLEAU ANALYST 08/19/24 Losartan Potassium (Losartan Potassium) 50 Mg Tab, 50 MG PO BID for 30 Days, #60 TAB Prov:ECTOR SEAMAN TABLEAU ANALYST 08/19/24 Furosemide (Lasix) 40 Mg Tab, 40 MG PO DAILY for 30 Days, #30 TAB Prov:ECTOR SEAMAN TABLEAU ANALYST 08/19/24 Amoxicillin & Pot Clavulanate (AUGMENTIN TABLET) 875 Mg Tb, 875 MG PO BID for 7 Days, #14 TAB Prov:ECTOR SEAMAN TABLEAU ANALYST 08/19/24 Information Source: Patient Mode of Arrival: EMS Severity: Moderate Timing: Months Duration: Since onset Prehospital treatment: None Location: Extremities (R lower ) Associated Signs and Symptoms: Other (cellulitis ) Past Medical History PAST MEDICAL HISTORY: High Lipids, HTN Past Medical History (Other): chronic acquired lymphedema Surgical History: Cholecystectomy Family History Family History: No family hx of Cancer, No family hx of DM, No family hx of Heart bro Social History Smoker: Cigarettes Alcohol: Denies ETOH Use Drugs: Marijuana, Methamphetamine Lives In: Home Was a procedure done? Was a procedure done?: No Differential Diagnosis (INTG) Differential Diagnosis: Cellulitis, Hematoma, Insect Envenomation, Puncture Wound, Other X-Ray, Labs, Meds, VS Vital Signs Date Time Temp Pulse Resp B/P (MAP) Pulse Ox O2 Delivery O2 Flow Rate FiO2 11/06/24 05:11 114 14 96 Room Air* 0 21 21 11/06/24 04:30 98.5 109 20 112/61 (78) 96 98.5 11/06/24 02:35 98.5 112 12 140/85 (103) 95 98.5 11/06/24 01:33 99.0 125 22 188/150 98 99.0 Lab Test 11/06/24 04:20 11/06/24 02:37 11/06/24 02:20 Range/Units Lactic Acid Level Pending 2.9 *H 0.4-2.0 mmol/L Urine Color Light-yellow Yellow Urine Clarity Clear Clear Urine pH 5.5 5.0-9.0 Urine Specific [place] 1.012 1.001-1.035 Urine Protein Negative Negative Urine Ketones Negative Negative Urine Blood Trace H Negative /uL Urine Nitrite Negative Negative Urine Bilirubin Negative Negative Urine Urobilinogen Normal Negative mg/dL Urine Leukocyte Esterase Negative Negative /uL Urine RBC <1 0 - 3 /hpf Urine Microscopic WBC 3 0-3 /HPF Urine Squamous Epithelial Cells None seen <5 /hpf Urine Bacteria None seen None Seen /hpf Urine Glucose Normal Normal mg/dL Urine Opiates Screen Neg NEGATIVE Urine Fentanyl Screen Neg NEGATIVE Urine Barbiturates Screen Neg NEGATIVE Urine Phencyclidine Screen Neg NEGATIVE Urine Amphetamines Screen Pos NEGATIVE Urine Benzodiazepines Screen Neg NEGATIVE Urine Cocaine Screen Neg NEGATIVE Urine Cannabinoids Screen Neg NEGATIVE White Blood Count 12.0 H 4.4-10.8 10^3/uL Red Blood Count 5.16 4.5-5.90 10^6/uL Hemoglobin 15.1 13.5-17.5 g/dL Hematocrit 44.2 41.0-53.0 % Mean Corpuscular Volume 85.8 80.0-100.0 fL Mean Corpuscular Hemoglobin 29.3 28.0-32.0 pg Mean Corpuscular Hemoglobin Concent 34.1 32.0-36.0 g/dL Red Cell Distribution Width 14.2 11.8-14.3 % Platelet Count 155 140-450 10^3/uL Mean Platelet Volume 7.7 6.9-10.8 fL Neutrophils (%) (Auto) 87.7 H 37.0-80.0 % Lymphocytes (%) (Auto) 6.5 L 10.0-50.0 % Monocytes (%) (Auto) 5.4 0.0-12.0 % Eosinophils (%) (Auto) 0.2 0.0-7.0 % Basophils (%) (Auto) 0.2 0.0-2.0 % Neutrophils # (Auto) 10.5 H 1.6-8.6 10 ^3/uL Lymphocytes # (Auto) 0.8 0.4-5.4 10 ^3/uL Monocytes # (Auto) 0.6 0-1.3 10 ^3/uL Eosinophils # (Auto) 0 0-0.8 10 ^3/uL Basophils # (Auto) 0 0-0.2 10 ^3/uL Nucleated Red Blood Cells 0.1 % Sodium Level 134 L 136-145 mmol/L Potassium Level 3.1 L 3.5-5.1 mmol/L Chloride Level 102 98-107 mmol/L Carbon Dioxide Level 20 20-31 mmol/L Anion Gap 12 5-15 Blood Urea Nitrogen 7 L 9-23 mg/dL Creatinine 0.94 0.700-1.30 mg/dL Glomerular Filtration Rate Calc 104 >90 mL/min BUN/Creatinine Ratio 7.4 L 10.0-20.0 Serum Glucose 139 H 74-106 mg/dL Calcium Level 8.9 8.7-10.4 mg/dL B-Type Natriuretic Peptide 41.62 0-100 pg/mL Plasma/Serum Blood Alcohol < 3.0 <10 mg/dL Current Medications Medications (Trade) Dose Ordered Sig/Martha Route Start Time Stop Time Status Last Admin Sodium Chloride 1,000 ml @ 1,000 mls/hr Q1H ONCE IV 11/06/24 02:15 11/06/24 03:14 DC 11/06/24 03:22 Piperacillin Sod/ Tazobactam Sod 100 ml @ 100 mls/hr ONCE ONCE IV 11/06/24 02:15 11/06/24 03:14 DC 11/06/24 03:22 Ondansetron HCl (Zofran) 4 mg ONCE ONCE IV 11/06/24 02:15 11/06/24 02:16 DC 11/06/24 03:23 Acetaminophen (Tylenol Tablet Or Capsule) 1,000 mg ONCE ONCE PO 11/06/24 02:15 11/06/24 02:16 DC 11/06/24 03:23 Potassium Bicarbonate (Klor-Con/Ef) 50 meq ONCE ONCE PO 11/06/24 03:15 11/06/24 03:20 DC 11/06/24 04:43 Images Reviewed?: Images reviewed and evaluated by me Time of 1ST Reevaluation: 02:45 Reevaluation 1ST: Unchanged Patient Education/Counseling: Diagnosis, Treatment Family Education/Counseling: No Family Present Medical Screening: No EMC Exist At This Time SEPSIS Sepsis Screen Date sepsis recognized/suspect: Nov 06, 2024 Time Sepsis recognized/suspect: 0125 Recent Procedure: No On Antibiotic Therapy: Yes Respiratory Rate >20: Yes Heart Rate >90: Yes Temp<36 C (96.8 F) or >38.3 C: No SBP <90 or MAP <65 mmHG: No New Acute Mental Status Change: No Is the patient on CPAP, BIPAP,: No Physician Orders Chest Xray 1 View (11/06/24 02:05) Rt Lower Dvt (11/06/24 02:05) Blood Culture (11/06/24 02:07) Sodium Chloride 0.9% (11/06/24 03:15) Admit (11/06/24 04:55) Code Status (11/06/24 04:55) Sodium Chloride 0.9% (11/06/24 05:00) Hydrocodone-Acet 5/325mg Tab ([place] 5/32 (11/06/24 05:00) Temazepam (Restoril) (11/06/24 05:00) Ondansetron Hcl (Zofran) (11/06/24 05:00) Docusate Sodium Capsule (Colace Capsule) (11/06/24 05:00) Enoxaparin Sodium (Lovenox) (11/06/24 10:00) Complete Blood Count (11/07/24 04:00) Comprehensive Metabolic Panel (11/07/24 04:00) Cardiac Diet-2gna,Lofat,Lochol (11/06/24 Breakfast) Condition: Fair (11/06/24 04:55) Acetaminophen Tablet (Tylenol Tablet) (11/06/24 05:00) Morphine Sulfate Injection (11/06/24 05:00) Piperacillin-Tazob 3.375gm (Zosyn 3.375g (11/06/24 11:00) Famotidine Tablet (Pepcid Tablet) (11/06/24 10:00) Vital Signs Date Time Temp Pulse Resp B/P (MAP) Pulse Ox O2 Delivery O2 Flow Rate FiO2 11/06/24 05:11 114 14 96 Room Air* 0 21 21 11/06/24 04:30 98.5 109 20 112/61 (78) 96 98.5 11/06/24 02:35 98.5 112 12 140/85 (103) 95 98.5 11/06/24 01:33 99.0 125 22 188/150 98 99.0 Laboratory Tests Test 11/06/24 02:20 11/06/24 04:20 Lactic Acid Level 2.9 mmol/L (0.4-2.0) *H Pending White Blood Count 12.0 10^3/uL (4.4-10.8) H Medications Medications Dose Ordered Sig/Martha Route Start Time Stop Time Status Last Admin Dose Admin Acetaminophen 1,000 mg ONCE ONCE PO 11/06/24 02:15 11/06/24 02:16 DC 11/06/24 03:23 Ondansetron HCl 4 mg ONCE ONCE IV 11/06/24 02:15 11/06/24 02:16 DC 11/06/24 03:23 Piperacillin Sod/ Tazobactam Sod 100 ml @ 100 mls/hr ONCE ONCE IV 11/06/24 02:15 11/06/24 03:14 DC 11/06/24 03:22 Potassium Bicarbonate 50 meq ONCE ONCE PO 11/06/24 03:15 11/06/24 03:20 DC 11/06/24 04:43 Sodium Chloride 1,000 ml @ 1,000 mls/hr Q1H ONCE IV 11/06/24 02:15 11/06/24 03:14 DC 11/06/24 03:22 Departure 1 Departure Time of Disposition: 03:16 Impression: Primary Impression: Sepsis Additional Impression: Cellulitis Disposition: 09 ADMITTED INPATIENT Condition: Guarded Comments Antibiotics and IV fluids initiated in the ED for ultrasound negative for DVT No sign of congestive heart failure on chest x-ray or BNP Patient admitted to hospitalist service for further treatment, evaluation and monitoring. Critical Care Note Critical Care Time?: No Stability Stability form required: No Heart Score Heart Score: Heart Score Response (Comments) Value History N/A 0 EKG N/A 0 Age N/A 0 Risk Factors N/A 0 Troponin N/A 0 Total 0 I personally scribed for TONY TAI MD ([employer]) on 11/06/24 at 02:06. Electronically submitted by Nay Harrell ([employer]). I personally scribed for TONY TAI MD ([email or web address]) on 11/06/24 at 02:18. Electronically submitted by Nay Harrell ([employer]). I personally scribed for TONY TAI MD ([email or web address]) on 11/06/24 at 02:20. Electronically submitted by Nay Harrell ([facility]). TONY TAI MD Nov 06, 2024 02:06
--- NOTE | 2024-11-06 02:33 | DVH ---
CHEST RADIOGRAPH Indication: sob Technique: 1 view Comparison: XY CHEST PORTABLE on DOS: 08/11/24, XY CHEST PORTABLE on DOS: 01/26/23, CXRP on DOS: , CHEST PORTABLE on DOS: 12/29/21, EKG on DOS: 12/29/21 FINDINGS: Lines and Tubes: None Lungs/Pleura: No focal consolidation, pleural effusion or pneumothorax. Cardiomediastinum: Heart size likely within normal limits for technique, unchanged. Other: No acute osseous abnormality. IMPRESSION: 1. No acute cardiopulmonary abnormality.
[2024-11-06 02:39] LABS: Hematocrit 44.2 % (41.0-53.0); Hemoglobin 15.1 g/dL (13.5-17.5); Mean Corpuscular Hemoglobin 29.3 pg (28.0-32.0); Mean Corpuscular Volume 85.8 fL (80.0-100.0); Nucleated Red Blood Cells % 0.1 %
[2024-11-06 02:49] LABS: Chloride 102 mmol/L (98-107)
[2024-11-06 02:50] LABS: Anion Gap 12 (5-15); Calcium 8.9 mg/dL (8.7-10.4); Carbon Dioxide 20 mmol/L (20-31)
[2024-11-06 02:51] LABS: Urine Protein, UAD Negative (Negative)
[2024-11-06 02:53] LABS: Potassium 3.1 mmol/L (3.5-5.1); Sodium 134 mmol/L (136-145)
[2024-11-06 02:55] LABS: BUN/Creatinine Ratio 7.4 (10.0-20.0)
[2024-11-06 02:56] LABS: Blood Urea Nitrogen 7 mg/dL (9-23); Glucose 139 mg/dL (74-106)
[2024-11-06 02:58] LABS: Phencyclidine Screen, Urine Neg (NEGATIVE)
[2024-11-06 03:00] LABS: Lactic Acid w/Reflex 2.9 mmol/L (0.4-2.0)
[2024-11-06] MEDS: SODIUM CHLORIDE 0.9% 1,000 ML IV ONE ×3 (03:15→05:33)
--- NOTE | 2024-11-06 03:20 | DVH ---
Right lower extremity venous duplex Clinical History: RLE edema Comparison: US BILAT LOWER DVT on DOS: 08/13/24, US LT LOWER DVT on DOS: 08/11/24, US RT LOWER DVT on D OS: 06/11/24, US RT LOWER DVT on DOS: 12/12/22 Technique: Duplex Doppler evaluation of the deep venous system of the right lower extremity from the common femo ral vein to the popliteal vein including color Doppler and spectral/pulsed waveform analysis was perf ormed. Findings: The common femoral vein demonstrates appropriate compressibility and waveform variability. There is compressibility/patency of the great saphenous vein at the proximal thigh. The femoral vein demonstrates appropriate compressibility and waveform variability. The deep femoral vein demonstrates appropriate compressibility and waveform variability. The popliteal vein demonstrates appropriate compressibility and waveform variability. There is normal compressibility at the tibioperoneal trunk. Impression: 1. No right femoropopliteal venous thrombosis.
[2024-11-06] MEDS: PIPERACILLIN-TAZOB 3.375GM 100 ML IV ONE (03:22)
[2024-11-06] MEDS: ACETAMINOPHEN 500 MG TAB or CAP PO ONE (03:23)
[2024-11-06] MEDS: ONDANSETRON HCL 4 MG/2 ML VIAL IV ONE (03:23)
[2024-11-06 03:39] LABS: Amphetamine Screen, Urine Pos (NEGATIVE); Barbiturate Scree,Urine Neg (NEGATIVE); Benzodiazephine Screen, Urine Neg (NEGATIVE); Cannabinoid Screen, Urine Neg (NEGATIVE); Cocaine Screen, Urine Neg (NEGATIVE); Opiate Scree,Urine Neg (NEGATIVE)
[2024-11-06] MEDS: POTASSIUM EFFERVESENT TAB 25 MEQ PO ONE (04:43)
--- NOTE | 2024-11-06 04:58 | DVHHP2 ---
Admitting Diagnosis: Lower extremity edema History of Present Illness 44 year old male is complaining of lower extremity edema for one week. Patient also reports nausea. He states he was evaluated on 08/11/24 for bilateral lower extremity edema and was diagnosed with cellulitis and was given antibiotics. While in the emergency department the patient was evaluated by the provider. Patient will be admitted for further evaluation and treatment. I discussed admission with the patient/family and is in agreement to treatment plan. Patient Family History: Alcoholism G8 MOTHER, Onset:Unknown Allergies: Coded Allergies: NO KNOWN ALLERGIES (Unverified , 07/22/21) Home Meds Active Scripts Hydrocodone-Acetaminophen (Hydrocodone Bitartrate/AC 10-325 mg) 1 Tab Tab, 1 TAB PO Q6HPRN PRN for 5 Days, #20 TAB Prov:ECTOR SE[employer]AN [employer]CTOR 08/19/24 Losartan Potassium (Losartan Potassium) 50 Mg Tab, 50 MG PO BID for 30 Days, #60 TAB Prov:ECTOR SE[employer] DON[employer] DOCTOR 08/19/24 Furosemide (Lasix) 40 Mg Tab, 40 MG PO DAILY for 30 Days, #30 TAB Prov:ECTOR SEAMAN DONKEY DOCTOR 08/19/24 Amoxicillin & Pot Clavulanate (AUGMENTIN TABLET) 875 Mg Tb, 875 MG PO BID for 7 Days, #14 TAB Prov:ECTOR SE[employer]AN DONKEY DOCTOR 08/19/24 Current Medications Current Medications Medications (Trade) Dose Ordered Sig/Martha Route PRN Reason Start Time Stop Time Status Last Admin Sodium Chloride 1,000 ml @ 60 mls/hr [id number] IV 11/06/24 05:00 11/06/24 09:09 DC 11/06/24 06:30 Acetaminophen/ Hydrocodone Bitart ([place] 5/325MG Tab) 1 tab Q4HP PRN PO MODERATE PAIN (4-6 PAIN SCALE) 11/06/24 05:00 Temazepam (Restoril) 15 mg QHSP PRN PO FOR INSOMNIA 11/06/24 05:00 Ondansetron HCl (Zofran) 4 mg Q4HP PRN IV NAUSEA / VOMITING 11/06/24 05:00 Docusate Sodium (Colace Capsule) 100 mg BIDPRN PRN PO FOR CONSTIPATION 11/06/24 05:00 Enoxaparin Sodium (Lovenox) 40 mg DAILY SC 11/06/24 10:00 11/06/24 11:08 Acetaminophen (Tylenol Tablet) 650 mg Q6HP PRN PO PAIN SCALE 1-3 OR TEMP>100.4 11/06/24 05:00 Morphine Sulfate 2 mg Q4HPRN PRN IV SEVERE PAIN (7-10 PAIN SCALE) 11/06/24 05:00 11/06/24 09:43 DC Piperacillin Sod/ Tazobactam Sod 100 ml @ 25 mls/hr Q8H IV 11/06/24 11:00 11/06/24 17:57 Famotidine (Pepcid Tablet) 40 mg DAILY PO 11/06/24 10:00 11/06/24 10:57 Furosemide (Lasix Injection) 40 mg BIDD IV 11/06/24 09:15 11/06/24 17:57 Losartan Potassium (Cozaar Tablet) 50 mg BID PO 11/06/24 10:00 11/06/24 10:56 Spironolactone (Aldactone) 50 mg BIDD PO 11/06/24 09:45 11/06/24 17:57 Hydromorphone HCl (Dilaudid Injection) 1 mg Q4HP PRN IV PAIN SCALE 7 THRU 10 11/06/24 09:45 11/06/24 18:13 Review of Systems edema lower extremity Vital Signs Vital Signs Date Time Temp Pulse Resp B/P (MAP) Pulse Ox O2 Delivery O2 Flow Rate FiO2 11/06/24 18:13 100 23 110/66 11/06/24 16:26 99.6 95 99.6 11/06/24 08:00 Room Air* 0 21 Physical Exam General Appearance: alert, no distress HEENT: EOMI, PERRLA, normal external inspect of ears, no icterus, no nasal drainage Neck: no carotid bruit, no jugular venous distention (JVD), no lymphadenopathy Chest: normal thorax Respiratory: clear to auscultation, normal air movement Cardiovascular: regular rate and rhythm, no diastolic murmur, no jugular venous distention (JVD), no rub, no systolic murmur Abdominal: soft, no hepatomegaly, no mass, no splenomegaly, no tenderness Musculoskeletal: no joint tenderness Extremities: normal pulses, no calf tenderness, no clubbing, no cyanosis, no edema Skin: no bruising, no jaundice, no rash Neurological: alert, No focal deficit SEPSIS Sepsis Screen Date sepsis recognized/suspect: Nov 06, 2024 Time Sepsis recognized/suspect: 124 Recent Procedure: No On Antibiotic Therapy: Yes Respiratory Rate >20: Yes Heart Rate >90: Yes Temp<36 C (96.8 F) or >38.3 C: No SBP <90 or MAP <65 mmHG: No New Acute Mental Status Change: No Is the patient on CPAP, BIPAP,: No Physician Orders Chest Xray 1 View (11/06/24 02:05) Rt Lower Dvt (11/06/24 02:05) Blood Culture (11/06/24 02:07) Admit (11/06/24 04:55) Code Status (11/06/24 04:55) Hydrocodone-Acet 5/325mg Tab ([place] 5/32 (11/06/24 05:00) Temazepam (Restoril) (11/06/24 05:00) Ondansetron Hcl (Zofran) (11/06/24 05:00) Docusate Sodium Capsule (Colace Capsule) (11/06/24 05:00) Enoxaparin Sodium (Lovenox) (11/06/24 10:00) Complete Blood Count (11/07/24 04:00) Comprehensive Metabolic Panel (11/07/24 04:00) Cardiac Diet-2gna,Lofat,Lochol (11/06/24 Breakfast) Condition: Fair (11/06/24 04:55) Acetaminophen Tablet (Tylenol Tablet) (11/06/24 05:00) Piperacillin-Tazob 3.375gm (Zosyn 3.375g (11/06/24 11:00) Famotidine Tablet (Pepcid Tablet) (11/06/24 10:00) Furosemide Injection (Lasix Injection) (11/06/24 09:15) Losartan Tablet (Cozaar Tablet) (11/06/24 10:00) *Consult Dr. Eddi Cohen (11/06/24 09:07) Spironolactone (Aldactone) (11/06/24 09:45) Hydromorphone Injection (Dilaudid Inject (11/06/24 09:45) Vital Signs Date Time Temp Pulse Resp B/P (MAP) Pulse Ox O2 Delivery O2 Flow Rate FiO2 11/06/24 18:13 100 23 110/66 11/06/24 17:57 110/66 11/06/24 16:26 99.6 100 23 110/66 (81) 95 99.6 11/06/24 16:00 94 19 137/92 (107) 94 11/06/24 14:00 98 17 154/73 (100) 98 11/06/24 12:00 98.8 98 20 113/63 (80) 98 98.8 11/06/24 11:33 90 12 135/60 11/06/24 11:10 123/98 11/06/24 11:03 99 24 123/98 11/06/24 10:56 123/98 11/06/24 10:00 88 25 123/98 (106) 97 11/06/24 08:00 100 24 94 Room Air* 0 21 11/06/24 08:00 98.9 100 28 96/53 (67) 94 98.9 11/06/24 05:30 108 29 129/86 (100) 92 11/06/24 05:11 114 14 96 Room Air* 0 21 21 11/06/24 04:30 98.5 109 20 112/61 (78) 96 98.5 11/06/24 02:35 98.5 112 12 140/85 (103) 95 98.5 11/06/24 01:33 99.0 125 22 188/150 98 99.0 Laboratory Tests Test 11/06/24 02:20 11/06/24 06:32 Lactic Acid Level 2.9 mmol/L (0.4-2.0) *H 2.0 mmol/L (0.4-2.0) White Blood Count 12.0 10^3/uL (4.4-10.8) H Medications Medications Dose Ordered Sig/Martha Route Start Time Stop Time Status Last Admin Dose Admin Enoxaparin Sodium 40 mg DAILY SC 11/06/24 10:00 11/06/24 11:08 Famotidine 40 mg DAILY PO 11/06/24 10:00 11/06/24 10:57 Furosemide 40 mg BIDD IV 11/06/24 09:15 11/06/24 17:57 Hydromorphone HCl 1 mg Q4HP PRN IV 11/06/24 09:45 11/06/24 18:13 Losartan Potassium 50 mg BID PO 11/06/24 10:00 11/06/24 10:56 Piperacillin Sod/ Tazobactam Sod 100 ml @ 25 mls/hr Q8H IV 11/06/24 11:00 11/06/24 17:57 Spironolactone 50 mg BIDD PO 11/06/24 09:45 11/06/24 17:57 Results Labs Test 11/06/24 17:03 11/06/24 06:32 11/06/24 02:37 11/06/24 02:20 Range/Units Sodium Level 134 L 136-145 mmol/L Potassium Level 3.7 3.5-5.1 mmol/L Chloride Level 100 98-107 mmol/L Carbon Dioxide Level 28 20-31 mmol/L Anion Gap 6 5-15 Blood Urea Nitrogen 11 9-23 mg/dL Creatinine 1.08 0.700-1.30 mg/dL Glomerular Filtration Rate Calc 88 >90 mL/min BUN/Creatinine Ratio 10.2 10.0-20.0 Serum Glucose 125 H 74-106 mg/dL Calcium Level 8.2 L 8.7-10.4 mg/dL Total Bilirubin 0.9 0.2-1.0 mg/dL Aspartate Amino Transferase (AST) 22 13-40 U/L Alanine Aminotransferase (ALT) 33 7-40 U/L Alkaline Phosphatase 39 L 46-116 U/L Total Protein 5.7 5.7-8.2 g/dL Albumin 3.6 3.2-4.8 g/dL Lactic Acid Level 2.0 0.4-2.0 mmol/L Urine Color Light-yellow Yellow Urine Clarity Clear Clear Urine pH 5.5 5.0-9.0 Urine Specific [place] 1.012 1.001-1.035 Urine Protein Negative Negative Urine Ketones Negative Negative Urine Blood Trace H Negative /uL Urine Nitrite Negative Negative Urine Bilirubin Negative Negative Urine Urobilinogen Normal Negative mg/dL Urine Leukocyte Esterase Negative Negative /uL Urine RBC <1 0 - 3 /hpf Urine Microscopic WBC 3 0-3 /HPF Urine Squamous Epithelial Cells None seen <5 /hpf Urine Bacteria None seen None Seen /hpf Urine Glucose Normal Normal mg/dL Urine Opiates Screen Neg NEGATIVE Urine Fentanyl Screen Neg NEGATIVE Urine Barbiturates Screen Neg NEGATIVE Urine Phencyclidine Screen Neg NEGATIVE Urine Amphetamines Screen Pos NEGATIVE Urine Benzodiazepines Screen Neg NEGATIVE Urine Cocaine Screen Neg NEGATIVE Urine Cannabinoids Screen Neg NEGATIVE White Blood Count 12.0 H 4.4-10.8 10^3/uL Red Blood Count 5.16 4.5-5.90 10^6/uL Hemoglobin 15.1 13.5-17.5 g/dL Hematocrit 44.2 41.0-53.0 % Mean Corpuscular Volume 85.8 80.0-100.0 fL Mean Corpuscular Hemoglobin 29.3 28.0-32.0 pg Mean Corpuscular Hemoglobin Concent 34.1 32.0-36.0 g/dL Red Cell Distribution Width 14.2 11.8-14.3 % Platelet Count 155 140-450 10^3/uL Mean Platelet Volume 7.7 6.9-10.8 fL Neutrophils (%) (Auto) 87.7 H 37.0-80.0 % Lymphocytes (%) (Auto) 6.5 L 10.0-50.0 % Monocytes (%) (Auto) 5.4 0.0-12.0 % Eosinophils (%) (Auto) 0.2 0.0-7.0 % Basophils (%) (Auto) 0.2 0.0-2.0 % Neutrophils # (Auto) 10.5 H 1.6-8.6 10 ^3/uL Lymphocytes # (Auto) 0.8 0.4-5.4 10 ^3/uL Monocytes # (Auto) 0.6 0-1.3 10 ^3/uL Eosinophils # (Auto) 0 0-0.8 10 ^3/uL Basophils # (Auto) 0 0-0.2 10 ^3/uL Nucleated Red Blood Cells 0.1 % B-Type Natriuretic Peptide 41.62 0-100 pg/mL Plasma/Serum Blood Alcohol < 3.0 <10 mg/dL Admitting Diagnosis: -Cellulitis bilateral lower extremity IV antibiotics, monitoring -Polysubstance abuse Monitoring -Acute on chronic diastolic heart failure Cardiology consult, diuretics, monitoring -Benign essential hypertension Antihypertensives, monitoring Plan discussed with: Patient, Other ECTOR SEAMAN NP Nov 06, 2024 04:58
[2024-11-06] MEDS ORDERED: ONDANSETRON HCL 4 MG/2 ML VIAL IV PRN (05:00)
[2024-11-06] MEDS ORDERED: DOCUSATE SOD 100 MG CAP PO PRN (05:00)
[2024-11-06] MEDS ORDERED: TEMAZEPAM 15 MG CAP PO PRN (05:00)
[2024-11-06] MEDS ORDERED: MORPHINE SULFATE INJ 2 MG/ml SYRG IV PRN (05:00)
[2024-11-06 05:11] VITALS: PULSE 114; RESP 14; O2SAT 96
[2024-11-06] MEDS: SODIUM CHLORIDE 0.9% 1,000 ML IV SCH (06:30)
[2024-11-06 08:00] VITALS: PULSE 100; RESP 24; O2SAT 94
[2024-11-06] MEDS: PIPERACILLIN-TAZOB 3.375GM 100 ML IV SCH (10:55)
[2024-11-06] MEDS: LOSARTAN POTASSIUM 50 MG TAB PO SCH (10:56)
[2024-11-06] MEDS: FAMOTIDINE 20 MG TAB PO SCH (10:57)
[2024-11-06] MEDS: SPIRONOLACTONE 25 MG TAB PO SCH (10:57)
[2024-11-06] MEDS: FUROSEMIDE 40 MG/4 ML VIAL IV SCH (11:02)
[2024-11-06] MEDS: HYDROmorphone HCL 2 MG/ML VL/or syr IV PRN (11:03)
[2024-11-06] MEDS: ENOXAPARIN SOD 40 MG/0.4 ML SYRINGE SC SCH (11:08)
[2024-11-06 16:26] VITALS: BP 110/66; PULSE 100; RESP 23; TEMP 99.6; O2SAT 95
[2024-11-06 17:33] LABS: Alanine Aminotransferase 33 U/L (7-40); Albumin 3.6 g/dL (3.2-4.8); Alkaline Phosphatase 39 U/L (46-116); Anion Gap 6 (5-15); BUN/Creatinine Ratio 10.2 (10.0-20.0); Bilirubin, Total 0.9 mg/dL (0.2-1.0); Blood Urea Nitrogen 11 mg/dL (9-23); Calcium 8.2 mg/dL (8.7-10.4); Carbon Dioxide 28 mmol/L (20-31); Chloride 100 mmol/L (98-107); Glucose 125 mg/dL (74-106); Potassium 3.7 mmol/L (3.5-5.1); Sodium 134 mmol/L (136-145); Total Protein 5.7 g/dL (5.7-8.2)
[2024-11-06 20:00] VITALS: PULSE 106; RESP 20; O2SAT 93
[2024-11-06 21:00] VITALS: BP 118/70; PULSE 108; RESP 19; TEMP 102.7; O2SAT 93
[2024-11-06] MEDS: ACETAMINOPHEN 325 MG TAB PO PRN (21:21)
[2024-11-06 22:00] VITALS: TEMP 99.8
[2024-11-07] VITALS (9 sets, daily range): BP systolic 84–119; BP diastolic 57–74; PULSE 70–124; RESP 15–22; TEMP 97.8–103.2; O2SAT 93–100
[2024-11-07] MEDS: IBUPROFEN 600 MG TAB PO ONE (05:59)
[2024-11-07 06:37] LABS: Hematocrit 39.8 % (41.0-53.0); Hemoglobin 13.9 g/dL (13.5-17.5); Mean Corpuscular Hemoglobin 29.6 pg (28.0-32.0); Mean Corpuscular Volume 84.9 fL (80.0-100.0); Nucleated Red Blood Cells % 0.1 %
[2024-11-07 07:02] LABS: Alanine Aminotransferase 30 U/L (7-40); Anion Gap 11 (5-15); BUN/Creatinine Ratio 9.1 (10.0-20.0); Blood Urea Nitrogen 9 mg/dL (9-23); Carbon Dioxide 25 mmol/L (20-31); Glucose 106 mg/dL (74-106); Total Protein 6.3 g/dL (5.7-8.2)
[2024-11-07 07:03] LABS: Albumin 3.7 g/dL (3.2-4.8); Bilirubin, Total 0.7 mg/dL (0.2-1.0)
[2024-11-07 07:08] LABS: Alkaline Phosphatase 45 U/L (46-116); Calcium 8.7 mg/dL (8.7-10.4); Chloride 97 mmol/L (98-107); Potassium 3.3 mmol/L (3.5-5.1); Sodium 133 mmol/L (136-145)
--- NOTE | 2024-11-07 10:34 | DVHINCON2 ---
Date of service: Nov 07, 2024 History of Present Illness HPI Patient is a 44-year-old gentleman who presented with lower extremity swelling. Does have history of cellulitis of lower extremity in July 2024. Patient mentions episodes of fever and nausea also. Patient is known to our practice from before. Does have history of substance abuse. Cardiology is involved for cardiac aspects of care. Patient denies any chest pains. Patient denies orthopnea/PND. Home Meds Active Scripts Hydrocodone-Acetaminophen (Hydrocodone Bitartrate/AC 10-325 mg) 1 Tab Tab, 1 TAB PO Q6HPRN PRN for 5 Days, #20 TAB Prov:ECTOR SEAMAN [employer] 08/19/24 Losartan Potassium (Losartan Potassium) 50 Mg Tab, 50 MG PO BID for 30 Days, #60 TAB Prov:ECTOR SEAMAN [employer]ENER 08/19/24 Furosemide (Lasix) 40 Mg Tab, 40 MG PO DAILY for 30 Days, #30 TAB Prov:ECTOR SEAMAN [employer]ENER 08/19/24 Amoxicillin & Pot Clavulanate (AUGMENTIN TABLET) 875 Mg Tb, 875 MG PO BID for 7 Days, #14 TAB Prov:ECTOR SEAMAN [employer]ENER 08/19/24 Past Medical History Others Past medical history includes obesity, hypertension hyperlipidemia, history of cellulitis of lower extremity, old history of pancreatitis, history of polysubstance abuse and old history of cholecystectomy. He smokes cigarettes and uses marijuana and methamphetamine. Patient Family History: Alcoholism G8 MOTHER, Onset:Unknown Smoker: No Hx (Negative) Drugs: Marijuana, Amphetimines Lives with: Alone Review of Systems Constitutional: Chills, Fever, Weakness Ears, Nose, & Throat: No symptom reported Eyes: No symptom reported Cardiovascular: No symptom reported All Other Systems 14 point review of system was performed. Relevant findings as per above and as per HPI. Otherwise negative. H&P Exam Vital Signs Vital Signs Date Time Temp Pulse Resp B/P (MAP) Pulse Ox O2 Delivery O2 Flow Rate FiO2 11/07/24 10:16 103/80 11/07/24 09:00 97.8 91 15 95 97.8 11/06/24 20:00 Room Air* 0 21 General Appeara: Well developed Head Exam: Normal inspection Neck Exam: Normal inspection Eye Exam: bilateral eye PERRL Mouth: Normal Inspection Pulmonary/Respiratory: Lungs clear Cardiovascular/Chest: Edema, Normal Rhythm Peripheral Pulses: 2+ carotid (R), 2+ carotid (L), 2+ femoral (R), 2+ femoral (L), 2+ dorsalis pedis (R), 2+ dorsalis pedis (L), 2+ Radial (R), 2+ Radial (L) Abdominal Exam: Normal bowel sounds, Soft Neuro/Mental St: Alert, Oriented Appearance: Appropriate appearance Eye contact/ Speech: Cooperative Labs/Xrays Labs Test 11/07/24 08:33 11/07/24 04:19 11/06/24 06:32 11/06/24 02:37 Range/Units D-Dimer, Quantitative 0.98 H 0.0-0.49 mg/L FEU Troponin I High Sensitivity 10 </=54 ng/L White Blood Count 10.8 4.4-10.8 10^3/uL Red Blood Count 4.69 4.5-5.90 10^6/uL Hemoglobin 13.9 13.5-17.5 g/dL Hematocrit 39.8 L 41.0-53.0 % Mean Corpuscular Volume 84.9 80.0-100.0 fL Mean Corpuscular Hemoglobin 29.6 28.0-32.0 pg Mean Corpuscular Hemoglobin Concent 34.8 32.0-36.0 g/dL Red Cell Distribution Width 14.3 11.8-14.3 % Platelet Count 142 140-450 10^3/uL Mean Platelet Volume 8.0 6.9-10.8 fL Neutrophils (%) (Auto) 79.9 37.0-80.0 % Lymphocytes (%) (Auto) 12.8 10.0-50.0 % Monocytes (%) (Auto) 6.9 0.0-12.0 % Eosinophils (%) (Auto) 0.2 0.0-7.0 % Basophils (%) (Auto) 0.2 0.0-2.0 % Neutrophils # (Auto) 8.6 1.6-8.6 10 ^3/uL Lymphocytes # (Auto) 1.4 0.4-5.4 10 ^3/uL Monocytes # (Auto) 0.7 0-1.3 10 ^3/uL Eosinophils # (Auto) 0 0-0.8 10 ^3/uL Basophils # (Auto) 0 0-0.2 10 ^3/uL Nucleated Red Blood Cells 0.1 % Sodium Level 133 L 136-145 mmol/L Potassium Level 3.3 L 3.5-5.1 mmol/L Chloride Level 97 L 98-107 mmol/L Carbon Dioxide Level 25 20-31 mmol/L Anion Gap 11 5-15 Blood Urea Nitrogen 9 9-23 mg/dL Creatinine 0.99 0.700-1.30 mg/dL Glomerular Filtration Rate Calc 98 >90 mL/min BUN/Creatinine Ratio 9.1 L 10.0-20.0 Serum Glucose 106 74-106 mg/dL Calcium Level 8.7 8.7-10.4 mg/dL Total Bilirubin 0.7 0.2-1.0 mg/dL Aspartate Amino Transferase (AST) 24 13-40 U/L Alanine Aminotransferase (ALT) 30 7-40 U/L Alkaline Phosphatase 45 L 46-116 U/L Total Protein 6.3 5.7-8.2 g/dL Albumin 3.7 3.2-4.8 g/dL Lactic Acid Level 2.0 0.4-2.0 mmol/L Urine Color Light-yellow Yellow Urine Clarity Clear Clear Urine pH 5.5 5.0-9.0 Urine Specific [place] 1.012 1.001-1.035 Urine Protein Negative Negative Urine Ketones Negative Negative Urine Blood Trace H Negative /uL Urine Nitrite Negative Negative Urine Bilirubin Negative Negative Urine Urobilinogen Normal Negative mg/dL Urine Leukocyte Esterase Negative Negative /uL Urine RBC <1 0 - 3 /hpf Urine Microscopic WBC 3 0-3 /HPF Urine Squamous Epithelial Cells None seen <5 /hpf Urine Bacteria None seen None Seen /hpf Urine Glucose Normal Normal mg/dL Urine Opiates Screen Neg NEGATIVE Urine Fentanyl Screen Neg NEGATIVE Urine Barbiturates Screen Neg NEGATIVE Urine Phencyclidine Screen Neg NEGATIVE Urine Amphetamines Screen Pos NEGATIVE Urine Benzodiazepines Screen Neg NEGATIVE Urine Cocaine Screen Neg NEGATIVE Urine Cannabinoids Screen Neg NEGATIVE Test 11/06/24 02:20 Range/Units B-Type Natriuretic Peptide 41.62 0-100 pg/mL Plasma/Serum Blood Alcohol < 3.0 <10 mg/dL Microbiology Date/Time Source Procedure Growth Status 11/06/24 02:20 Blood Blood Culture - Preliminary NO GROWTH AFTER 24 HOURS OF INCUBATION. Resulted Assessment/Plan Plan Patient is a 44-year-old gentleman who presented with lower extremity swelling. Does have history of cellulitis of lower extremity in July 2024. Patient mentions episodes of fever and nausea also. Patient is known to our practice from before. Does have history of substance abuse. Cardiology is involved for cardiac aspects of care. Patient denies any chest pains. Patient denies orthopnea/PND. Obese gentleman. Not in acute distress. No gross JVD. Mucosa is pink and wet. No carotid bruit. No goiter. Lungs reveal scattered rhonchi. No rales. Cardiac: Regular, no thrill/gallop. Abdomen is obese. There is no gross mass. Extremities reveal 3+ edema bilaterally (right more than left) with erythema of the right lower extremity. Past medical history includes obesity, hypertension hyperlipidemia, history of cellulitis of lower extremity, old history of pancreatitis, history of polysubstance abuse and old history of cholecystectomy. He smokes cigarettes and uses marijuana and methamphetamine. Denies relevant family history. Denies early in the family. Denies CVA/MD in the family Echocardiogram of August 12, 2024 revealed ejection fraction of 60-65% with mild biatrial enlargement WBC: 12.0 - 10.8 BNP: 41.62 Potassium: 3.1 - 3.7 Creatinine: 0.94 - 1.08 Urine toxicology was positive for amphetamine Chest x-ray revealed: IMPRESSION: 1. No acute cardiopulmonary abnormality. Venous Doppler of right lower extremity revealed: Impression: 1. No right femoropopliteal venous thrombosis. Patient is a 44-year-old gentleman who presented with leg swellings: Right more than left. Does have history of cellulitis. Presentation is in favor of cellulitis. Cardiology is involved for cardiac aspects of care. Cardiac etiology for presentation is less likely. BNP is normal. Lower Extremity edema Cellulitis Substance abuse Amphetamine abuse Hypertension Cardiac suggestion for management: Manage on telemetry IV diuresis for now is suggested Follow-up electrolytes and kidney function tests and correct abnormalities Follow-up vital signs and treat hypertension Management of cellulitis (antibiotics) as per primary team / ID Lifestyle and risk factor modifications advised. Patient was counseled to avoid substance abuse. Patient was counseled to be compliant with meds Further evaluation and management depends on the above and clinical course Thank you for consultation A total of 75 minutes was spent reviewing the patient record, examining the patient, making a diagnostic and therapeutic plan, discussing this plan with medical personnel, following up on diagnostic studies and following the patient for clinical stability excluding any and all procedures. At least 50% of this time was spent in direct, [id number] contact. Thank you for allowing me to participate in this patient's care. Further recommendations will depend on patient's clinical course. Please do not hesitate to contact me if you have any questions or concerns. This medical document was created using electronic medical record system with [employer] computerized dictation system. Although this document has been carefully reviewed, there may still be some phonetic and typographical errors. These areas are purely typographical due to the imperfection of the software programs, and do not reflect any compromise in the patient's medical care. Plan discussed with: Patient, Other (nurse) NANCY NAVARRO MD Nov 07, 2024 10:34
--- NOTE | 2024-11-07 12:12 | DVH ---
Bilateral lower extremity venous duplex Clinical History: D-dimer elevated; pain Comparison: US RT LOWER DVT on DOS: 11/06/24, US BILAT LOW EXT ART DUPLEX on DOS: 08/14/24, US BILAT LO WER DVT on DOS: 08/13/24, US LT LOWER DVT on DOS: 08/11/24, US RT LOWER DVT on DOS: 06/11/24 Technique: Duplex Doppler evaluation of the deep venous systems of both lower extremities from the common femora l veins to the popliteal veins including color Doppler and spectral/pulsed waveform analysis was perf ormed. Findings: RIGHT SIDE: The common femoral vein demonstrates appropriate compressibility and waveform variability. There is compressibility/patency of the great saphenous vein at the proximal thigh. The femoral vein demonstrates appropriate compressibility and waveform variability. The deep femoral vein demonstrates appropriate compressibility and waveform variability. The popliteal vein demonstrates appropriate compressibility and waveform variability. There is normal compressibility at the tibioperoneal trunk. LEFT SIDE: The common femoral vein demonstrates appropriate compressibility and waveform variability. There is compressibility/patency of the great saphenous vein at the proximal thigh. The femoral vein demonstrates appropriate compressibility and waveform variability. The deep femoral vein demonstrates appropriate compressibility and waveform variability. The popliteal vein demonstrates appropriate compressibility and waveform variability. There is normal compressibility at the tibioperoneal trunk. Impression: No right or left femoropopliteal venous thrombosis.
--- NOTE | 2024-11-07 14:03 | DVHPN2 ---
Progress Note - Dictate Date Seen: Nov 07, 2024 Medical Necessity Reason Pt with a Central, PICC or Fol: No vital signs Vital Sign Date Time Temp Pulse Resp B/P (MAP) Pulse Ox O2 Delivery O2 Flow Rate FiO2 11/07/24 10:16 103/80 11/07/24 09:00 97.8 91 15 95 97.8 11/07/24 08:00 Room Air* 0 21 Total Intake and Output 11/06/24 11/06/24 11/07/24 15:00 23:00 07:00 Intake Total 220 ml 110 ml 850 ml Output Total 700 ml 900 ml Balance 220 ml -590 ml -50 ml medications Current Medications Medications Dose Ordered Sig/Martha Route Start Time Stop Time Status Last Admin Dose Admin Acetaminophen/ Hydrocodone Bitart 1 tab Q4HP PRN PO 11/06/24 05:00 Temazepam 15 mg QHSP PRN PO 11/06/24 05:00 Ondansetron HCl 4 mg Q4HP PRN IV 11/06/24 05:00 Docusate Sodium 100 mg BIDPRN PRN PO 11/06/24 05:00 Acetaminophen 650 mg Q6HP PRN PO 11/06/24 05:00 11/06/24 21:21 650 MG Piperacillin Sod/ Tazobactam Sod 100 ml @ 25 mls/hr Q8H IV 11/06/24 11:00 11/07/24 10:19 25 MLS/HR Famotidine 40 mg DAILY PO 11/06/24 10:00 11/07/24 10:13 40 MG Furosemide 40 mg BIDD IV 11/06/24 09:15 11/07/24 06:00 40 MG Losartan Potassium 50 mg BID PO 11/06/24 10:00 11/07/24 10:16 50 MG Spironolactone 50 mg BIDD PO 11/06/24 09:45 11/07/24 05:59 50 MG Hydromorphone HCl 1 mg Q4HP PRN IV 11/06/24 09:45 11/07/24 07:02 1 MG Enoxaparin Sodium 120 mg Q12HR SC 11/07/24 22:00 objective General Appearance: alert, no distress HEENT: EOMI, PERRLA, normal external inspect of ears, no icterus, no nasal drainage Neck: no carotid bruit, no jugular venous distention (JVD), no lymphadenopathy Chest: normal thorax Respiratory: clear to auscultation, normal air movement Cardiovascular: regular rate and rhythm, no diastolic murmur, no jugular venous distention (JVD), no rub, no systolic murmur Abdominal: soft, no hepatomegaly, no mass, no splenomegaly, no tenderness Genitourinary: grossly normal external Musculoskeletal: no joint tenderness, no swelling Extremities: normal pulses, no calf tenderness, no clubbing, no cyanosis, no edema Skin: no bruising, no jaundice, no rash Neurological: alert, No focal deficit laboratory and microbiology Laboratory Tests 11/07/24 04:19 Test 11/07/24 04:19 Range/Units Serum Glucose 106 74-106 mg/dL Problem List -Cellulitis bilateral lower extremity IV antibiotics, monitoring -Polysubstance abuse Monitoring -Acute on chronic diastolic heart failure Cardiology consult, diuretics, monitoring -Benign essential hypertension Antihypertensives, monitoring Assessment/Plan Subjective: Patient is awake and alert. Objective: Patient was admitted for severe swelling to his right lower extremity. He was seen by cardiology, and CHF has been ruled out. Swelling is most likely related to cellulitis. Patient has a history of smoking and methamphetamine abuse and admitted to smoking cannabis with his family while visiting in the hospital. Plan: Continue current treatment. Monitor on EKG. Continue diuretics. Continue IV antibiotics. Plan discussed with: Patient, Other ECTOR SEAMAN NP Nov 07, 2024 14:03
[2024-11-07] MEDS ORDERED: VANCOMYCIN PER PHARMACY 0 MG IV SCH (14:15)
[2024-11-07] MEDS: VANCOMYCIN 1GM/250ML KIT 250 ML IV SCH (15:41)
[2024-11-07] MEDS: ENOXAPARIN SOD 120 MG/0.8 ML SYRINGE SC SCH (21:15)
[2024-11-07] MEDS: HYDROcodone-ACET 5/325MG TAB PO PRN (22:37)
[2024-11-08] VITALS (9 sets, daily range): BP systolic 103–138; BP diastolic 65–91; PULSE 82–99; RESP 16–22; TEMP 97.4–99.6; O2SAT 94–97
[2024-11-08] MEDS: VANCOMYCIN 1.5GM/250ML 250 ML IV SCH (04:15)
--- NOTE | 2024-11-08 07:14 | DVHPN2 ---
Progress Note - Dictate Date Seen: Nov 08, 2024 Medical Necessity Reason Pt with a Central, PICC or Fol: No vital signs Vital Sign Date Time Temp Pulse Resp B/P (MAP) Pulse Ox O2 Delivery O2 Flow Rate FiO2 11/08/24 06:24 81 16 118/73 11/08/24 05:00 98.8 96 98.8 11/07/24 20:00 Room Air* 0 21 Total Intake and Output 11/07/24 11/07/24 11/08/24 15:00 23:00 07:00 Intake Total 100 ml 1300 ml 1160 ml Output Total 800 ml 1920 ml Balance 100 ml 500 ml -760 ml medications Current Medications Medications Dose Ordered Sig/Martha Route Start Time Stop Time Status Last Admin Dose Admin Acetaminophen/ Hydrocodone Bitart 1 tab Q4HP PRN PO 11/06/24 05:00 11/07/24 22:37 1 TAB Temazepam 15 mg QHSP PRN PO 11/06/24 05:00 Ondansetron HCl 4 mg Q4HP PRN IV 11/06/24 05:00 Docusate Sodium 100 mg BIDPRN PRN PO 11/06/24 05:00 Acetaminophen 650 mg Q6HP PRN PO 11/06/24 05:00 11/06/24 21:21 650 MG Piperacillin Sod/ Tazobactam Sod 100 ml @ 25 mls/hr Q8H IV 11/06/24 11:00 11/08/24 02:00 25 MLS/HR Famotidine 40 mg DAILY PO 11/06/24 10:00 11/07/24 10:13 40 MG Furosemide 40 mg BIDD IV 11/06/24 09:15 11/07/24 17:16 40 MG Losartan Potassium 50 mg BID PO 11/06/24 10:00 11/07/24 10:16 50 MG Spironolactone 50 mg BIDD PO 11/06/24 09:45 11/08/24 05:45 50 MG Hydromorphone HCl 1 mg Q4HP PRN IV 11/06/24 09:45 11/08/24 05:54 1 MG Enoxaparin Sodium 120 mg Q12HR SC 11/07/24 22:00 11/07/24 21:15 120 MG Vancomycin HCl 0 ml @ 0 mls/hr UD IV 11/07/24 14:15 Vancomycin HCl 250 ml @ 166.667 mls/hr Q12H IV 11/08/24 04:00 11/08/24 04:15 166.667 MLS/HR objective General Appearance: alert, no distress HEENT: EOMI, PERRLA, normal external inspect of ears, no icterus, no nasal drainage Neck: no carotid bruit, no jugular venous distention (JVD), no lymphadenopathy Chest: normal thorax Respiratory: clear to auscultation, normal air movement Cardiovascular: regular rate and rhythm, no diastolic murmur, no jugular venous distention (JVD), no rub, no systolic murmur Abdominal: soft, no hepatomegaly, no mass, no splenomegaly, no tenderness Genitourinary: grossly normal external Musculoskeletal: no joint tenderness, no swelling Extremities: normal pulses, no calf tenderness, no clubbing, no cyanosis, no edema Skin: no bruising, no jaundice, no rash Neurological: alert, No focal deficit laboratory and microbiology Laboratory Tests 11/07/24 04:19 Test 11/07/24 04:19 Range/Units Serum Glucose 106 74-106 mg/dL Problem List -Cellulitis bilateral lower extremity IV antibiotics, monitoring -Polysubstance abuse Monitoring -Acute on chronic diastolic heart failure Cardiology consult, diuretics, monitoring -Benign essential hypertension Antihypertensives, monitoring Assessment/Plan Subjective: Patient is awake and alert. Objective: Patient continues to have significant swelling and pain to his right lower extremity. Patient was started on vancomycin and Zosyn. Patient is also on diuretics. Patient was seen by cardiology. CHF was ruled out. Patient has a history of polysubstance abuse. He did admit to smoking cannabis with his family yesterday. Plan: Continue current treatment. Patient has been educated on abstaining from polysubstance abuse. Continue diuretics and antibiotics. Plan discussed with: Patient, Other ECTOR SEAMAN NP Nov 08, 2024 07:14
--- NOTE | 2024-11-08 08:17 | DVHPN2 ---
Progress Note - Dictate Date Seen: Nov 08, 2024 Medical Necessity Reason Pt with a Central, PICC or Fol: No vital signs Vital Sign Date Time Temp Pulse Resp B/P (MAP) Pulse Ox O2 Delivery O2 Flow Rate FiO2 11/08/24 06:24 81 16 118/73 11/08/24 05:00 98.8 96 98.8 11/07/24 20:00 Room Air* 0 21 Total Intake and Output 11/07/24 11/07/24 11/08/24 15:00 23:00 07:00 Intake Total 100 ml 1300 ml 1160 ml Output Total 800 ml 1920 ml Balance 100 ml 500 ml -760 ml medications Current Medications Medications Dose Ordered Sig/Martha Route Start Time Stop Time Status Last Admin Dose Admin Acetaminophen/ Hydrocodone Bitart 1 tab Q4HP PRN PO 11/06/24 05:00 11/07/24 22:37 1 TAB Temazepam 15 mg QHSP PRN PO 11/06/24 05:00 Ondansetron HCl 4 mg Q4HP PRN IV 11/06/24 05:00 Docusate Sodium 100 mg BIDPRN PRN PO 11/06/24 05:00 Acetaminophen 650 mg Q6HP PRN PO 11/06/24 05:00 11/06/24 21:21 650 MG Piperacillin Sod/ Tazobactam Sod 100 ml @ 25 mls/hr Q8H IV 11/06/24 11:00 11/08/24 02:00 25 MLS/HR Famotidine 40 mg DAILY PO 11/06/24 10:00 11/07/24 10:13 40 MG Furosemide 40 mg BIDD IV 11/06/24 09:15 11/07/24 17:16 40 MG Losartan Potassium 50 mg BID PO 11/06/24 10:00 11/07/24 10:16 50 MG Spironolactone 50 mg BIDD PO 11/06/24 09:45 11/08/24 05:45 50 MG Hydromorphone HCl 1 mg Q4HP PRN IV 11/06/24 09:45 11/08/24 05:54 1 MG Enoxaparin Sodium 120 mg Q12HR SC 11/07/24 22:00 11/07/24 21:15 120 MG Vancomycin HCl 0 ml @ 0 mls/hr UD IV 11/07/24 14:15 Vancomycin HCl 250 ml @ 166.667 mls/hr Q12H IV 11/08/24 04:00 11/08/24 04:15 166.667 MLS/HR laboratory and microbiology Laboratory Tests 11/07/24 04:19 Test 11/08/24 05:26 Range/Units Serum Glucose Pending Assessment/Plan Patient is a 44-year-old gentleman who presented with lower extremity swelling. Does have history of cellulitis of lower extremity in July 2024. Patient mentions episodes of fever and nausea also. Patient is known to our practice from before. Does have history of substance abuse. Cardiology is involved for cardiac aspects of care. Patient denies any chest pains. Patient denies orthopnea/PND. Obese gentleman. Not in acute distress. No gross JVD. Mucosa is pink and wet. No carotid bruit. No goiter. Lungs reveal scattered rhonchi. No rales. Cardiac: Regular, no thrill/gallop. Abdomen is obese. There is no gross mass. Extremities reveal 3+ edema bilaterally (right more than left) with erythema of the right lower extremity. Past medical history includes obesity, hypertension hyperlipidemia, history of cellulitis of lower extremity, old history of pancreatitis, history of polysubstance abuse and old history of cholecystectomy. He smokes cigarettes and uses marijuana and methamphetamine. Denies relevant family history. Denies early in the family. Denies CVA/OH in the family Echocardiogram of August 12, 2024 revealed ejection fraction of 60-65% with mild biatrial enlargement WBC: 12.0 - 10.8 BNP: 41.62 Potassium: 3.1 - 3.7 - 3.3 - 3.6 Creatinine: 0.94 - 1.08 - 0.99 - 0.98 - 0.97 D-dimer: 0.98 Troponin (high sensitive): 10 - 9 - 7 Urine toxicology was positive for amphetamine Chest x-ray revealed: IMPRESSION: 1. No acute cardiopulmonary abnormality. Venous Doppler of right lower extremity revealed: Impression: 1. No right femoropopliteal venous thrombosis. Venous duplex of bilateral lower ext: Impression: No right or left femoropopliteal venous thrombosis. Patient is a 44-year-old gentleman who presented with leg swellings: Right more than left. Does have history of cellulitis. Presentation is in favor of cellulitis. Cardiology is involved for cardiac aspects of care. Cardiac etiology for presentation is less likely. BNP is normal. Lower Extremity edema Cellulitis Substance abuse Amphetamine abuse Hypertension Cardiac suggestion for management: Manage on telemetry IV diuresis for now is suggested Follow-up electrolytes and kidney function tests and correct abnormalities Follow-up vital signs and treat hypertension Management of cellulitis (antibiotics) as per primary team / ID CTA of lungs Lifestyle and risk factor modifications advised. Patient was counseled to avoid substance abuse. Patient was counseled to be compliant with meds Further evaluation and management depends on the above and clinical course A total of 55 minutes was spent reviewing the patient record, examining the patient, making a diagnostic and therapeutic plan, discussing this plan with medical personnel, following up on diagnostic studies and following the patient for clinical stability excluding any and all procedures. At least 50% of this time was spent in direct, [id number] contact. Thank you for allowing me to participate in this patient's care. Further recommendations will depend on patient's clinical course. Please do not hesitate to contact me if you have any questions or concerns. This medical document was created using electronic medical record system with [employer] computerized dictation system. Although this document has been carefully reviewed, there may still be some phonetic and typographical errors. These areas are purely typographical due to the imperfection of the software programs, and do not reflect any compromise in the patient's medical care. Plan discussed with: Patient, Other (nurse) NANCY NAVARRO MD Nov 08, 2024 08:17
[2024-11-08 08:28] LABS: Calcium 8.8 mg/dL (8.7-10.4); Chloride 99 mmol/L (98-107); Potassium 3.6 mmol/L (3.5-5.1); Sodium 136 mmol/L (136-145)
[2024-11-08 08:29] LABS: Anion Gap 10 (5-15); Carbon Dioxide 27 mmol/L (20-31)
[2024-11-08 08:34] LABS: BUN/Creatinine Ratio 10.3 (10.0-20.0); Blood Urea Nitrogen 10 mg/dL (9-23); Magnesium 2.0 mg/dL (1.6-2.6)
[2024-11-08 08:36] LABS: Glucose 129 mg/dL (74-106)
[2024-11-08 09:12] LABS: Hematocrit 40.6 % (41.0-53.0); Hemoglobin 13.7 g/dL (13.5-17.5); Mean Corpuscular Hemoglobin 29.0 pg (28.0-32.0); Mean Corpuscular Volume 85.6 fL (80.0-100.0); Nucleated Red Blood Cells % 0.2 %
[2024-11-08] MEDS: POTASSIUM CHL 20 Meq TABLET PO ONE ×2 (10:59→14:28)
--- NOTE | 2024-11-08 13:06 | DVH ---
Procedure: CT CT ANGIO CHEST CONTRAST Reason for study/Clinical History: Cough/Shortness of Breath Comparison Study: XY CHEST XRAY 1 VIEW on DOS: 11/06/24, CT CT ANGIO CHEST CONTRAST on DOS: 08/13/24, X Y CHEST PORTABLE on DOS: 08/11/24, XY CHEST PORTABLE on DOS: 01/26/23, CHEST PORTABLE on DOS: 12/29/21 Exam Date: 11/08/2024 12:[address] Angio Chest with Contrast TECHNIQUE: Multiple axial CT images of chest was performed following intravenous contrast administrat ion and coronal reformatting was performed. 3-D/MIP images were obtained. Radiation Dose : CTDI volume is 26.94 mGy. Dose-length product is 1087.61 mGy*cm FINDINGS: Pulmonary Arteries: There are no filling defects within main, lobar, segmental and visualized subsegm ental branch pulmonary arteries. There is normal dimensional of main PA. Lungs: There is no peripheral pulmonary infarction, consolidation, pleural effusion, or right heart s train. There is no pneumothorax or pneumomediastinum. Aorta and Vasculature: There is normal caliber of thoracic aorta without evidence of aortic dissectio n, intramural hematoma or aneurysm. Lymph Nodes: There is no significant intrathoracic or axillary lymphadenopathy on CT size criteria. Lower Neck: Visualized portions of the thyroid gland are unremarkable. Mediastinum: Heart size is mildly enlarged. There is no pericardial effusion. The esophagus is unrema rkable. Musculoskeletal: No aggressive focal bony lesions, acute fractures or dislocation. Chest wall: Unremarkable Partially visualized upper abdomen is grossly unremarkable. IMPRESSION: 1. No evidence of acute or chronic pulmonary embolism. END IMPRESSION: All CT scans at this medical facility are performed using dose modulation techniques as appropriate t o a performed exam including the following: Automated exposure control was utilized; adjustment of th e MA and/or KV according to patient size; and use of iterative reconstruction technique.
[2024-11-08] MEDS: IOHEXOL 350 MG/ML 100ML IJ ONE (13:47)
[2024-11-09] VITALS (8 sets, daily range): BP systolic 108–147; BP diastolic 60–102; PULSE 83–110; RESP 18–20; TEMP 97.2–97.8; O2SAT 94–99
--- NOTE | 2024-11-09 09:46 | ECG ---
[facility] Test Date: 2024-11-07 Test Time: 10:36:47 Pat Name: MAKENNA ALLRED Department: Respiratoy Room: 0212T A Gender: M Team Psychologist: NATHALY : 1980 Requested By: NANCY NAVARRO Order Number: [id number] Reading MD: Alvarado Cox Measurements Intervals [place] Rate: 78 P: 256 CO: 122 QRS: 73 QRSD: 134 T: 63 QT: 432 QTc: 493 Interpretive Statements Sinus or ectopic atrial rhythm IVCD, consider atypical RBBB Electronically Signed On 11-10-2024 18:23:23 PDT by Alvarado Cox Please click the below link to view image of tracing.
--- NOTE | 2024-11-09 13:30 | DVHPN2 ---
Progress Note - Dictate Date Seen: Nov 09, 2024 Medical Necessity Reason Pt with a Central, PICC or Fol: No vital signs Vital Sign Date Time Temp Pulse Resp B/P (MAP) Pulse Ox O2 Delivery O2 Flow Rate FiO2 11/09/24 12:50 97.7 83 19 146/102 (117) 99 97.7 11/09/24 07:41 Room Air* 0 21 Total Intake and Output 11/08/24 11/08/24 11/09/24 15:00 23:00 07:00 Intake Total 100 ml 950 ml 1250 ml Output Total 2100 ml 1500 ml Balance 100 ml -1150 ml -250 ml medications Current Medications Medications Dose Ordered Sig/Martha Route Start Time Stop Time Status Last Admin Dose Admin Acetaminophen/ Hydrocodone Bitart 1 tab Q4HP PRN PO 11/06/24 05:00 11/09/24 00:47 1 TAB Temazepam 15 mg QHSP PRN PO 11/06/24 05:00 Ondansetron HCl 4 mg Q4HP PRN IV 11/06/24 05:00 Docusate Sodium 100 mg BIDPRN PRN PO 11/06/24 05:00 Acetaminophen 650 mg Q6HP PRN PO 11/06/24 05:00 11/06/24 21:21 650 MG Piperacillin Sod/ Tazobactam Sod 100 ml @ 25 mls/hr Q8H IV 11/06/24 11:00 11/09/24 09:19 25 MLS/HR Famotidine 40 mg DAILY PO 11/06/24 10:00 11/09/24 09:18 40 MG Furosemide 40 mg BIDD IV 11/06/24 09:15 11/09/24 05:16 40 MG Losartan Potassium 50 mg BID PO 11/06/24 10:00 11/09/24 09:18 50 MG Spironolactone 50 mg BIDD PO 11/06/24 09:45 11/09/24 05:16 50 MG Hydromorphone HCl 1 mg Q4HP PRN IV 11/06/24 09:45 11/09/24 09:19 1 MG Enoxaparin Sodium 120 mg Q12HR SC 11/07/24 22:00 11/09/24 09:18 120 MG Vancomycin HCl 0 ml @ 0 mls/hr UD IV 11/07/24 14:15 Vancomycin HCl 250 ml @ 166.667 mls/hr Q12H IV 11/08/24 04:00 11/09/24 03:59 166.667 MLS/HR objective General Appearance: alert, no distress HEENT: EOMI, PERRLA, normal external inspect of ears, no icterus, no nasal drainage Neck: no carotid bruit, no jugular venous distention (JVD), no lymphadenopathy Chest: normal thorax Respiratory: clear to auscultation, normal air movement Cardiovascular: regular rate and rhythm, no diastolic murmur, no jugular venous distention (JVD), no rub, no systolic murmur Abdominal: soft, no hepatomegaly, no mass, no splenomegaly, no tenderness Genitourinary: grossly normal external Musculoskeletal: no joint tenderness, no swelling Extremities: normal pulses, no calf tenderness, no clubbing, no cyanosis, no edema Skin: no bruising, no jaundice, no rash Neurological: alert, No focal deficit laboratory and microbiology Laboratory Tests 11/09/24 03:11 11/08/24 05:26 Test 11/08/24 05:26 Range/Units Serum Glucose 129 H 74-106 mg/dL Problem List -Cellulitis bilateral lower extremity IV antibiotics, monitoring -Polysubstance abuse Monitoring -Acute on chronic diastolic heart failure Cardiology consult, diuretics, monitoring -Benign essential hypertension Antihypertensives, monitoring Assessment/Plan Subjective: Patient is awake and alert. Objective: Patient has a persistent swelling to his right lower extremity. Currently on diuretics with Lasix and Aldactone. CHF was ruled out. Patient is on antibiotics for cellulitis with Zosyn and vancomycin. Plan: Continue diuretics. Continue antibiotics. DC planning in 2 to 3 days. Plan discussed with: Patient, Other ECTOR SEAMAN NP Nov 09, 2024 13:30
--- NOTE | 2024-11-09 16:03 | DVHPN2 ---
Progress Note - Dictate Date Seen: Nov 09, 2024 Medical Necessity Reason Pt with a Central, PICC or Fol: No vital signs Vital Sign Date Time Temp Pulse Resp B/P (MAP) Pulse Ox O2 Delivery O2 Flow Rate FiO2 11/09/24 15:42 82 14 145/98 11/09/24 12:50 97.7 99 97.7 11/09/24 07:41 Room Air* 0 21 Total Intake and Output 11/08/24 11/08/24 11/09/24 15:00 23:00 07:00 Intake Total 100 ml 950 ml 1250 ml Output Total 2100 ml 1500 ml Balance 100 ml -1150 ml -250 ml medications Current Medications Medications Dose Ordered Sig/Martha Route Start Time Stop Time Status Last Admin Dose Admin Acetaminophen/ Hydrocodone Bitart 1 tab Q4HP PRN PO 11/06/24 05:00 11/09/24 00:47 1 TAB Temazepam 15 mg QHSP PRN PO 11/06/24 05:00 Ondansetron HCl 4 mg Q4HP PRN IV 11/06/24 05:00 Docusate Sodium 100 mg BIDPRN PRN PO 11/06/24 05:00 Acetaminophen 650 mg Q6HP PRN PO 11/06/24 05:00 11/06/24 21:21 650 MG Famotidine 40 mg DAILY PO 11/06/24 10:00 11/09/24 09:18 40 MG Furosemide 40 mg BIDD IV 11/06/24 09:15 11/09/24 05:16 40 MG Losartan Potassium 50 mg BID PO 11/06/24 10:00 11/09/24 09:18 50 MG Spironolactone 50 mg BIDD PO 11/06/24 09:45 11/09/24 05:16 50 MG Hydromorphone HCl 1 mg Q4HP PRN IV 11/06/24 09:45 11/09/24 15:07 1 MG Enoxaparin Sodium 120 mg Q12HR SC 11/07/24 22:00 11/09/24 09:18 120 MG Vancomycin HCl 0 ml @ 0 mls/hr UD IV 11/07/24 14:15 Vancomycin HCl 250 ml @ 166.667 mls/hr Q12H IV 11/08/24 04:00 11/09/24 03:59 166.667 MLS/HR Piperacillin Sod/ Tazobactam Sod 100 ml @ 25 mls/hr Q6H IV 11/09/24 17:00 laboratory and microbiology Laboratory Tests 11/09/24 03:11 11/08/24 05:26 Test 11/08/24 05:26 Range/Units Serum Glucose 129 H 74-106 mg/dL Assessment/Plan Patient is a 44-year-old gentleman who presented with lower extremity swelling. Does have history of cellulitis of lower extremity in July 2024. Patient mentions episodes of fever and nausea also. Patient is known to our practice from before. Does have history of substance abuse. Cardiology is involved for cardiac aspects of care. Patient denies any chest pains. Patient denies orthopnea/PND. Obese gentleman. Not in acute distress. No gross JVD. Mucosa is pink and wet. No carotid bruit. No goiter. Lungs reveal scattered rhonchi. No rales. Cardiac: Regular, no thrill/gallop. Abdomen is obese. There is no gross mass. Extremities reveal 3+ edema bilaterally (right more than left) with erythema of the right lower extremity. Past medical history includes obesity, hypertension hyperlipidemia, history of cellulitis of lower extremity, old history of pancreatitis, history of polysubstance abuse and old history of cholecystectomy. He smokes cigarettes and uses marijuana and methamphetamine. Denies relevant family history. Denies early in the family. Denies CVA/MS in the family Echocardiogram of August 12, 2024 revealed ejection fraction of 60-65% with mild biatrial enlargement WBC: 12.0 - 10.8 - 6.5 BNP: 41.62 Potassium: 3.1 - 3.7 - 3.3 - 3.6 Creatinine: 0.94 - 1.08 - 0.99 - 0.98 - 0.97 - 0.87 D-dimer: 0.98 Troponin (high sensitive): 10 - 9 - 7 Urine toxicology was positive for amphetamine Chest x-ray revealed: IMPRESSION: 1. No acute cardiopulmonary abnormality. Venous Doppler of right lower extremity revealed: Impression: 1. No right femoropopliteal venous thrombosis. Venous duplex of bilateral lower ext: Impression: No right or left femoropopliteal venous thrombosis. CTA of lungs revealed: IMPRESSION: 1. No evidence of acute or chronic pulmonary embolism. Patient is a 44-year-old gentleman who presented with leg swellings: Right more than left. Does have history of cellulitis. Presentation is in favor of cellulitis. Cardiology is involved for cardiac aspects of care. Cardiac etiology for presentation is less likely. BNP is normal. Lower Extremity edema Cellulitis Substance abuse Amphetamine abuse Hypertension Cardiac suggestion for management: Manage on telemetry IV diuresis Follow-up electrolytes and kidney function tests and correct abnormalities Follow-up vital signs and treat hypertension Management of cellulitis (antibiotics) as per primary team / ID Lifestyle and risk factor modifications advised. Patient was counseled to avoid substance abuse. Patient was counseled to be compliant with meds Further evaluation and management depends on the above and clinical course A total of 55 minutes was spent reviewing the patient record, examining the patient, making a diagnostic and therapeutic plan, discussing this plan with medical personnel, following up on diagnostic studies and following the patient for clinical stability excluding any and all procedures. At least 50% of this time was spent in direct, [id number] contact. Thank you for allowing me to participate in this patient's care. Further recommendations will depend on patient's clinical course. Please do not hesitate to contact me if you have any questions or concerns. This medical document was created using electronic medical record system with [employer] computerized dictation system. Although this document has been carefully reviewed, there may still be some phonetic and typographical errors. These areas are purely typographical due to the imperfection of the software programs, and do not reflect any compromise in the patient's medical care. Plan discussed with: Patient, Other (nurse) NANCY NAVARRO MD Nov 09, 2024 16:03
[2024-11-09] MEDS: PIPERACILLIN-TAZOB 3.375GM 100 ML IV SCH (17:00)
[2024-11-09] MEDS: VANCOMYCIN 1GM/250ML KIT 250 ML IV SCH (22:50)
[2024-11-10 00:43] VITALS: BP 138/74; PULSE 90; RESP 20
--- NOTE | 2024-11-10 14:23 | DVHDS2 ---
Discharge Summary Date of Admission Nov 06, 2024 at 04:55 Date of Discharge: Nov 10, 2024 Labs/Diagnostic Data: Laboratory Results Test 11/09/24 03:11 11/08/24 05:26 11/07/24 11:23 11/07/24 08:33 Creatinine 0.87 mg/dL (0.700-1.30) Glomerular Filtration Rate Calc 110 mL/min (>90) Vancomycin Level Trough 8.1 ug/mL (5-10) White Blood Count 6.5 10^3/uL (4.4-10.8) Red Blood Count 4.75 10^6/uL (4.5-5.90) Hemoglobin 13.7 g/dL (13.5-17.5) Hematocrit 40.6 % (41.0-53.0) Mean Corpuscular Volume 85.6 fL (80.0-100.0) Mean Corpuscular Hemoglobin 29.0 pg (28.0-32.0) Mean Corpuscular Hemoglobin Concent 33.9 g/dL (32.0-36.0) Red Cell Distribution Width 14.2 % (11.8-14.3) Platelet Count 148 10^3/uL (140-450) Mean Platelet Volume 8.3 fL (6.9-10.8) Neutrophils (%) (Auto) 52.7 % (37.0-80.0) Lymphocytes (%) (Auto) 34.6 % (10.0-50.0) Monocytes (%) (Auto) 10.5 % (0.0-12.0) Eosinophils (%) (Auto) 1.8 % (0.0-7.0) Basophils (%) (Auto) 0.4 % (0.0-2.0) Neutrophils # (Auto) 3.4 10 ^3/uL (1.6-8.6) Lymphocytes # (Auto) 2.2 10 ^3/uL (0.4-5.4) Monocytes # (Auto) 0.7 10 ^3/uL (0-1.3) Eosinophils # (Auto) 0.1 10 ^3/uL (0-0.8) Basophils # (Auto) 0 10 ^3/uL (0-0.2) Nucleated Red Blood Cells 0.2 % Sodium Level 136 mmol/L (136-145) Potassium Level 3.6 mmol/L (3.5-5.1) Chloride Level 99 mmol/L (98-107) Carbon Dioxide Level 27 mmol/L (20-31) Anion Gap 10 (5-15) Blood Urea Nitrogen 10 mg/dL (9-23) BUN/Creatinine Ratio 10.3 (10.0-20.0) Serum Glucose 129 mg/dL (74-106) Calcium Level 8.8 mg/dL (8.7-10.4) Phosphorus Level 2.5 mg/dL (2.4-5.1) Magnesium Level 2.0 mg/dL (1.6-2.6) Troponin I High Sensitivity 7 ng/L (</=54) D-Dimer, Quantitative 0.98 mg/L FEU (0.0-0.49) Test 11/07/24 04:19 11/06/24 06:32 11/06/24 02:37 11/06/24 02:20 Total Bilirubin 0.7 mg/dL (0.2-1.0) Aspartate Amino Transferase (AST) 24 U/L (13-40) Alanine Aminotransferase (ALT) 30 U/L (7-40) Alkaline Phosphatase 45 U/L (46-116) Total Protein 6.3 g/dL (5.7-8.2) Albumin 3.7 g/dL (3.2-4.8) Lactic Acid Level 2.0 mmol/L (0.4-2.0) Urine Color Light-yellow (Yellow) Urine Clarity Clear (Clear) Urine pH 5.5 (5.0-9.0) Urine Specific [place] 1.012 (1.001-1.035) Urine Protein Negative (Negative) Urine Ketones Negative (Negative) Urine Blood Trace /uL (Negative) Urine Nitrite Negative (Negative) Urine Bilirubin Negative (Negative) Urine Urobilinogen Normal mg/dL (Negative) Urine Leukocyte Esterase Negative /uL (Negative) Urine RBC <1 /hpf (0 - 3) Urine Microscopic WBC 3 /HPF (0-3) Urine Squamous Epithelial Cells None seen /hpf (<5) Urine Bacteria None seen /hpf (None Seen) Urine Glucose Normal mg/dL (Normal) Urine Opiates Screen Neg (NEGATIVE) Urine Fentanyl Screen Neg (NEGATIVE) Urine Barbiturates Screen Neg (NEGATIVE) Urine Phencyclidine Screen Neg (NEGATIVE) Urine Amphetamines Screen Pos (NEGATIVE) Urine Benzodiazepines Screen Neg (NEGATIVE) Urine Cocaine Screen Neg (NEGATIVE) Urine Cannabinoids Screen Neg (NEGATIVE) B-Type Natriuretic Peptide 41.62 pg/mL (0-100) Plasma/Serum Blood Alcohol < 3.0 mg/dL (<10) Other Laboratory Tests 11/09/24 03:11 11/08/24 05:26 Brief Hx & Hospital Course: 44 year old male is complaining of lower extremity edema for one week. Patient also reports nausea. He states he was evaluated on 08/11/24 for bilateral lower extremity edema and was diagnosed with cellulitis and was given antibiotics. Patient was admitted for swelling and cellulitis to his right lower extremity. Diastolic heart failure was ruled out by cardiology. Patient was started on diuretics with Lasix and Aldactone due to severe swelling. Patient kidney were WNL. Patient still has severe swelling to his lower extremity. Patient also reports he smoked cannabis with his family while they were visiting. Patient unexpectedly stated he had to leave today AGAINST MEDICAL ADVICE stating he had a family emergency. He was instructed to follow-up to the emergency room if his condition declines or worsened and he has to follow-up with his PCP as soon as possible. The patient decided they wanted to leave AMA. The patient was informed about the risk of leaving. And was informed about the risk that are involved if they left without any treatment which may include . The patient was okay with it and decided to leave without any intervention. The patient was told to return for any worsening symptoms. Condition at Discharge: Unstable Final Diagnosis/Problems List -Cellulitis bilateral lower extremity -Polysubstance abuse -Acute on chronic diastolic heart failure -Benign essential hypertension Discharge Disposition: AMA Discharge Instruct/Medications Scheduled Amoxicillin & Pot Clavulanate (Augmentin Tablet), 875 MG PO BID Furosemide (Lasix), 40 MG PO DAILY Losartan Potassium (Losartan Potassium), 50 MG PO BID Scheduled PRN Hydrocodone-Acetaminophen (Hydrocodone Bitartrate/AC 10-325 mg), 1 TAB PO Q6HPRN PRN Discharge Statement: "Patient was advised to return to the ER or call 911 if any headaches, dizziness, shortness of breath, chest pain, abdominal pain, bleeding, fevers, or worsening of medical condition. Patient was counseled about treatment plan, medications, possible side effects, patientverbalized understanding. All questions were answered to the best of my ability. This discharge took greater then 30 minutes in planning, reviewing documentation, counseling the patient, and discussing with other team members." ASSESSMENT ASSESSMENT Assessment ECTOR SEAMAN NP Nov 10, 2024 14:23
== END 2024-11-10 01:04 | disposition left against medical advice (07) | DRG 720 ==
LOC: EDBD 01:19 → ER 01:19 → OVERFLOW 04:55 → CENTRAL 16:46 → TELE-CENTR 11-07 08:31
PROVIDERS: ADMIT Nurse Practitioner; ATTEND Nurse Practitioner
DX: A41.9 Sepsis, unspecified organism (principal); I50.33 Acute on chronic diastolic (congestive) heart failure; I11.0 Hypertensive heart disease with heart failure; L03.115 Cellulitis of right lower limb; F15.10 Other stimulant abuse, uncomplicated; E78.5 Hyperlipidemia, unspecified; E66.9 Obesity, unspecified; F12.90 Cannabis use, unspecified, uncomplicated; F17.210 Nicotine dependence, cigarettes, uncomplicated; L03.116 Cellulitis of left lower limb; Z68.36 Body mass index [BMI] 36.0-36.9, adult; Z90.49 Acquired absence of other specified parts of digestive tract; Z79.899 Other long term (current) drug therapy; F19.10 Other psychoactive substance abuse, uncomplicated
CPT/HCPCS: 36415; 71045; 71275; 80048; 80053; 80202; 80307; 80320; 81001; 82565; 83605; 83735; 83880; 84100; 84484; 85025; 85379; 87040; 93005; 93970; 93971; 96365; G0378; J2405; J2543

== ENCOUNTER 2025-01-17 02:50 | Inpatient (IN) | payer OTHER ==
[~2025-01-17] VITALS: Ht 182.9 cm; Wt 127.7 kg
--- NOTE | 2025-01-17 03:12 | ED.PDOC ---
Musculoskeletal HPI Comments 44-year-old male who came to ER via EMS for bilateral leg swelling. Patient does have history of hypertension, congestive heart failure, polysubstance abuse, chronic leg cellulitis. Patient has poor compliance to his medications. Admitted before for cellulitis of the legs. States for the past week, worsening of the swelling and pain of the both legs. Noted fever of 103 F Chief Complaint: Lower Extremity Time Seen by MD: 03:12 Primary Care Provider: NONE Reviewed Notes: Restaurant Service Manager Notes Allergies: Coded Allergies: NO KNOWN ALLERGIES (Unverified , 07/22/21) Home Meds Active Scripts Hydrocodone-Acetaminophen (Hydrocodone Bitartrate/AC 10-325 mg) 1 Tab Tab, 1 TAB PO Q6HPRN PRN for 5 Days, #20 TAB Prov:ECTOR SEAMAN ASSURANCE SOURCING MANAGER 08/19/24 Losartan Potassium (Losartan Potassium) 50 Mg Tab, 50 MG PO BID for 30 Days, #60 TAB Prov:ECTOR SEAMAN ASSURANCE SOURCING MANAGER 08/19/24 Furosemide (Lasix) 40 Mg Tab, 40 MG PO DAILY for 30 Days, #30 TAB Prov:ECTOR SEAMAN ASSURANCE SOURCING MANAGER 08/19/24 Amoxicillin & Pot Clavulanate (AUGMENTIN TABLET) 875 Mg Tb, 875 MG PO BID for 7 Days, #14 TAB Prov:ECTOR SEAMAN ASSURANCE SOURCING MANAGER 08/19/24 Information Source: Patient, Emergency Med Personnel Mode of Arrival: EMS Location: Bilateral Extremity Location: Leg Past Medical History PAST MEDICAL HISTORY: CHF, High Lipids, HTN Past Medical History (Other): Chronic leg cellulitis Surgical History: Cholecystectomy Family History Family History: No family hx of Cancer, No family hx of DM, No family hx of Heart bro Social History Smoker: Cigarettes Alcohol: Denies ETOH Use Drugs: Marijuana, Methamphetamine Lives In: Home Constitutional: denies: chills, diaphoresis, fatigue, fever, malaise, sweats, weakness, others EENTM: denies: blurred vision, double vision, ear bleeding, ear discharge, ear drainage, ear pain, ear ringing, eye pain, eye redness, hearing loss, mouth pain, mouth swelling, nasal discharge, nose bleeding, nose congestion, nose pain, photophobia, tearing, throat pain, throat swelling, voice changes, others Respiratory: denies: cough, hemoptysis, orthopnea, SOB at rest, shortness of breath, SOB with excertion, stridor, wheezing, others Cardiovascular: denies: chest pain, dizzy spells, diaphoresis, Dyspnea on exertion, edema, irregular heart beat, left arm pain, lightheadedness, palpitations, PND, syncope, others Gastrointestinal: denies: abdomen distended, abdominal pain, blood streaked bowels, constipated, diarrhea, dysphagia, difficulty swallowing, hematemesis, melena, nausea, poor appetite, poor fluid intake, rectal bleeding, rectal pain, vomiting, others Genitourinary: denies: burning, dysuria, flank pain, frequency, hematuria, incontinence, penile discharge, penile sore, pain, testicle pain, testicle swelling, urgency, others Neurological: denies: dizziness, fainting, headache, left sided numbness, left sided weakness, numbness, paresthesia, pre-existing deficit, right sided numbnes s, right sided weakness, seizure, speech problems, tingling, tremors, weakness, others Musculoskeletal: denies: back pain, gout, joint pain, joint swelling, muscle pain, muscle stiffness, neck pain, others Integumetry: denies: bruises, change in color, change in hair/nails, dryness, laceration, lesions, lumps, rash, wounds, others Allergic/Immunocompromised: denies: Difficulty Healing, Frequent Infections, Hives, Itching, others Hematologic/Lymphatic: denies: anemia, blood clots, easy bleeding, easy bruising, swollen glands, others Endocrine: denies: excessive hunger, excessive sweating, excessive thirst, excessive urination, flushing, intolerance to cold, intolerance to heat, unexplained weight gain, unexplained weight loss, others Psychiatric: denies: anxiety, bipolar disorder, depression, hopeless, panic disorder, schizophrenia, sleepless, suicidal, others Physical Exam General Appearance: No Apparent Distress, Normal HEENT: Normal ENT Inspection, Pharynx Normal, TMs Normal Neck: Full Range of Motion, Non-Tender, Normal, Normal Inspection Respiratory: Chest Non-Tender, Lungs Clear, No Accessory Muscle Use, No Respiratory Distress, Normal Breath Sounds Cardiovascular: No Edema, No JVD, No Murmur, No Gallop, Normal Peripheral Pulses, Regular Rate/Rhythm Breast Exam: Deferred Gastrointestinal: No Organomegaly, Non Tender, No Pulsatile Mass, Normal Bowel Sounds, Soft Genitalia: Deferred Pelvic: Deferred Rectal: Deferred Extremities: No calf tenderness, Normal capillary refill, Normal inspection, Normal range of motion, Non-tender, No pedal edema Musculoskeletal : Apperance: Normal Neurologic: Alert, taping machine operator II-XII nml as Tested, No Motor Deficits, Normal Affect, Normal Mood, No Sensory Deficits Cerebellar Function: Normal Reflexes: Normal Skin: Dry, Normal Color, Warm Lymphatic: No Adenopathy Was a procedure done? Was a procedure done?: No Differential Diagnosis EXT Differential Diagnosis: Cellulitis, CHF, Septic X-Ray, Labs, Meds, VS Vital Signs Date Time Temp Pulse Resp B/P (MAP) Pulse Ox O2 Delivery O2 Flow Rate FiO2 01/17/25 04:08 101.0 01/17/25 03:36 126 30 94 Room Air* 0 21 01/17/25 03:30 101.0 126 30 173/114 (133) 94 101.0 01/17/25 02:50 103.0 130 18 160/80 100 103.0 Lab Test 01/17/25 04:00 01/17/25 03:20 Range/Units Urine Color Light-yellow Yellow Urine Clarity Clear Clear Urine pH 7.0 5.0-9.0 Urine Specific [place] 1.018 1.001-1.035 Urine Protein Negative Negative Urine Ketones Negative Negative Urine Blood 1+ H Negative /uL Urine Nitrite Negative Negative Urine Bilirubin Negative Negative Urine Urobilinogen Normal Negative mg/dL Urine Leukocyte Esterase Negative Negative /uL Urine RBC 6 0 - 3 /hpf Urine Microscopic WBC < 1 0-3 /HPF Urine Squamous Epithelial Cells None seen <5 /hpf Urine Bacteria None seen None Seen /hpf Urine Glucose Normal Normal mg/dL White Blood Count 14.7 H 4.4-10.8 10^3/uL Red Blood Count 5.24 4.5-5.90 10^6/uL Hemoglobin 15.1 13.5-17.5 g/dL Hematocrit 44.4 41.0-53.0 % Mean Corpuscular Volume 84.7 80.0-100.0 fL Mean Corpuscular Hemoglobin 28.7 28.0-32.0 pg Mean Corpuscular Hemoglobin Concent 33.9 32.0-36.0 g/dL Red Cell Distribution Width 13.9 11.8-14.3 % Platelet Count 202 140-450 10^3/uL Mean Platelet Volume 7.6 6.9-10.8 fL Neutrophils (%) (Auto) 88.7 H 37.0-80.0 % Lymphocytes (%) (Auto) 6.3 L 10.0-50.0 % Monocytes (%) (Auto) 4.7 0.0-12.0 % Eosinophils (%) (Auto) 0.1 0.0-7.0 % Basophils (%) (Auto) 0.2 0.0-2.0 % Neutrophils # (Auto) 13.0 H 1.6-8.6 10 ^3/uL Lymphocytes # (Auto) 0.9 0.4-5.4 10 ^3/uL Monocytes # (Auto) 0.7 0-1.3 10 ^3/uL Eosinophils # (Auto) 0 0-0.8 10 ^3/uL Basophils # (Auto) 0 0-0.2 10 ^3/uL Nucleated Red Blood Cells 0.0 % Sodium Level 132 L 136-145 mmol/L Potassium Level 4.3 3.5-5.1 mmol/L Chloride Level 101 98-107 mmol/L Carbon Dioxide Level 23 20-31 mmol/L Anion Gap 8 5-15 Blood Urea Nitrogen 10 9-23 mg/dL Creatinine 0.88 0.700-1.30 mg/dL Glomerular Filtration Rate Calc 110 >90 mL/min BUN/Creatinine Ratio 11.4 10.0-20.0 Serum Glucose 154 H 74-106 mg/dL Lactic Acid Level 2.1 *H 0.4-2.0 mmol/L Calcium Level 9.4 8.7-10.4 mg/dL Total Bilirubin 0.8 0.2-1.0 mg/dL Aspartate Amino Transferase (AST) 15 13-40 U/L Alanine Aminotransferase (ALT) 26 7-40 U/L Alkaline Phosphatase 54 46-116 U/L Total Protein 7.3 5.7-8.2 g/dL Albumin 4.4 3.2-4.8 g/dL Current Medications Medications (Trade) Dose Ordered Sig/Martha Route Start Time Stop Time Status Last Admin Sodium Chloride 1,000 ml @ 150 mls/hr Q6H40M ONCE IV 01/17/25 03:15 01/17/25 09:54 01/17/25 03:30 Cefazolin Sodium/ Dextrose 50 ml @ 50 mls/hr ONCE ONCE IV 01/17/25 03:15 01/17/25 04:14 DC 01/17/25 04:24 Vancomycin HCl 250 ml @ 250 mls/hr ONCE ONCE IV 01/17/25 03:15 01/17/25 04:14 DC 01/17/25 03:30 Acetaminophen (Tylenol Tablet) 1,000 mg ONCE ONCE PO 01/17/25 04:00 01/17/25 04:01 DC 01/17/25 04:08 Time of 1ST Reevaluation: 03:09 Reevaluation 1ST: Unchanged Patient Education/Counseling: Diagnosis, Treatment Family Education/Counseling: No Family Present Sepsis Sepsis Reasesment Focused Exam Orders: Laboratory Tests 01/17/25 03:20: Lactic Acid Level 2.1 Departure 1 Departure Time of Disposition: 05:09 Impression: Primary Impression: Cellulitis of left lower extremity Additional Impression: Methamphetamine abuse Disposition: ADMITTED INPATIENT Admit to: Med Surg Condition: Guarded Comments 44-year-old male with a history of the leg cellulitis and poor compliance with medication now with fevers and left leg pain. The left leg is still red and swollen. On lab review patient has a white blood cell count elevated 15. Mild hyponatremia 132. Lactic acid is slightly elevated 2.1. Patient does have a fever of one hundred three initially. Patient was given IV fluid resuscitation and IV antibiotics. Patient will need to be admitted for left leg cellulitis Critical Care Note Critical Care Time?: Yes (35 min-critical care time only) Critical care comment: Total critical care time: Approximately 36 minutes Due to a high probability of clinically significant, life threatening deterioration, the patient required my highest level of preparedness to intervene emergently and I personally spent this critical care time directly and personally managing the patient. This critical care time included obtaining a history; examining the patient; pulse oximetry; ordering and review of studies; arranging urgent treatment with development of a management plan; evaluation of patient's response to treatment; frequent reassessment; and, discussions with other providers. This critical care time was performed to assess and manage the high probability of imminent, life-threatening deterioration that could result in multi-organ failure. It was exclusive of separately billable procedures and treating other patients. Stability Stability form required: No Heart Score Heart Score: Heart Score Response (Comments) Value History N/A 0 EKG N/A 0 Age N/A 0 Risk Factors N/A 0 Troponin N/A 0 Total 0 I personally scribed for HALI MCCLENDON MD ([email or web address]) on 01/17/25 at 03:12. Electronically submitted by Noel Ball ([facility]). I personally scribed for HALI MCCLENDON MD ([email or web address]) on 01/17/25 at 04:07. Electronically submitted by Noel Ball ([facility]). HALI MCCLENDON MD Jan 17, 2025 03:12
[2025-01-17] MEDS: SODIUM CHLORIDE 0.9% 1,000 ML IV ONE (03:30)
[2025-01-17] MEDS: VANCOMYCIN 1GM/250ML KIT 250 ML IV ONE ×2 (03:30→10:12)
[2025-01-17 03:36] VITALS: PULSE 126; RESP 30; O2SAT 94
[2025-01-17 03:40] LABS: Hematocrit 44.4 % (41.0-53.0); Hemoglobin 15.1 g/dL (13.5-17.5); Mean Corpuscular Hemoglobin 28.7 pg (28.0-32.0); Mean Corpuscular Volume 84.7 fL (80.0-100.0); Nucleated Red Blood Cells % 0.0 %
[2025-01-17] MEDS: ACETAMINOPHEN 325 MG TAB PO ONE (04:08)
[2025-01-17 04:15] LABS: Alanine Aminotransferase 26 U/L (7-40); Albumin 4.4 g/dL (3.2-4.8); Alkaline Phosphatase 54 U/L (46-116); Anion Gap 8 (5-15); BUN/Creatinine Ratio 11.4 (10.0-20.0); Blood Urea Nitrogen 10 mg/dL (9-23); Calcium 9.4 mg/dL (8.7-10.4); Carbon Dioxide 23 mmol/L (20-31); Chloride 101 mmol/L (98-107); Potassium 4.3 mmol/L (3.5-5.1); Total Protein 7.3 g/dL (5.7-8.2)
[2025-01-17 04:16] LABS: Bilirubin, Total 0.8 mg/dL (0.2-1.0)
[2025-01-17 04:24] LABS: Glucose 154 mg/dL (74-106); Lactic Acid w/Reflex 2.1 mmol/L (0.4-2.0); Sodium 132 mmol/L (136-145)
[2025-01-17] MEDS: ceFAZolin 2 GM/D5W50ml 50 ML IV ONE (04:24)
[2025-01-17 04:40] LABS: Urine Protein, UAD Negative (Negative)
--- NOTE | 2025-01-17 04:55 | DVH ---
CHEST RADIOGRAPH Indication: fever Technique: Single frontal view of the chest was obtained COMPARISON: XY CHEST XRAY 1 VIEW on DOS: 11/06/24, XY CHEST PORTABLE on DOS: 08/11/24, XY CHEST PORTABLE on DOS: 01/26/23, CXRP on DOS: 12/29/21, CHEST PORTABLE on DOS: 12/29/21 FINDINGS: Lines and Tubes: None Lungs: Clear Pleura: No effusion. No pneumothorax. Cardiomediastinal contours: Unremarkable Bones: Unremarkable IMPRESSION: 1. No acute disease.
--- NOTE | 2025-01-17 05:00 | DVH ---
CLINICAL INDICATION: fever / infection TECHNIQUE: XY L TIB FIB XRAY, XY L FOOT 2 VIEW XRAY Comparison: None FINDINGS/IMPRESSION: : There is no evidence of acute fracture or dislocation. Diffuse subcutaneous soft-tissue edema.
[2025-01-17] MEDS: IBUPROFEN 600 MG TAB PO ONE (05:37)
[2025-01-17] MEDS: SODIUM CHLORIDE 0.9% 2,000 ML IV ONE (06:31)
[2025-01-17 08:00] VITALS: PULSE 107; RESP 24; O2SAT 96
[2025-01-17] MEDS ORDERED: VANCOMYCIN PER PHARMACY 0 MG IV SCH (08:15)
[2025-01-17] MEDS ORDERED: NITROGLYCERIN 0.4 MG SL TAB SL PRN (08:15)
[2025-01-17] MEDS: VANCOMYCIN 1GM/250ML KIT 250 ML IV SCH (08:42)
--- NOTE | 2025-01-17 08:42 | DVHHP2 ---
History of Present Illness Reason for Visit: left leg pain and swelling History of Present Illness 44-year-old male with a history of hypertension, polysubstance abuse, chronic lower extremity cellulitis, and diastolic heart failure, presents to the ED with complaints of worsening left foot and leg pain for the past week. He was reportedly seen at this facility in October 2024 but left against medical advice for unclear reasons. Today, he returns appearing ill and unable to provide detailed history. He denies any recent trauma or falls. ED team noted a fever of 103.0F and bilateral lower extremity swelling and pain, worse on the left leg, which appears to be the probable source of infection. On examination, the patient was lethargic and diaphoretic. He received 3L IV fluids, acetaminophen, and ibuprofen in the ED. Laboratory findings showed: WBC 14.7, glucose 154, sodium 134, and lactate 2.1. Chest X-ray was unremarkable. Left foot X-ray revealed soft tissue edema, no evidence of fracture. With these findings, the patient meets SIRS criteria and is likely septic from left leg ce llulitis. He will be admitted for IV antibiotics, further evaluation, and management. DVT ultrasound and blood/urine cultures have been ordered. Past Medical History see hpi above Past Surgical History see hpi above Family History Reviewed, non-contributory to the management of this case. Past Social History Patient has polysubstance abuse history unable to get the drug abused dt mental status Review of Systems Constitutional: Yes: Fever, Sweats, Weakness; No: Chills, Malaise, Other Eyes: No: Pain, Vision change, Conjunctivae inflammation, Eyelid inflammation, Other, Redness ENT: No: Ear pain, Ear discharge, Nose pain, Nose discharge, Nose congestion, Mouth pain, Mouth swelling, Throat pain, Throat swelling, Other Respiratory: Other (tacypneic ); No: Cough, Dry, Shortness of breath, SOB with excertion, Wheezing, Hemoptysis, Pleuritic Pain, Sputum, Wheezing Cardiovascular: No: Chest Pain, Palpitations, Orthopnea, Paroxysmal Noc. Dyspnea, Edema, Lt Headedness, Other Gastrointestinal: No: Nausea, Vomiting, Abdominal Pain, Diarrhea, Constipation, Melena, Hematochezia, Other Genitourinary: No Dysuria, No Frequency, No Incontinence, No Hematuria, No Retention, No Other Musculoskeletal: leg pain, foot pain; No: other, neck pain, shoulder pain, arm pain, back pain, hand pain Skin: No: Rash, Lesions, Jaundice, Bruising, Other Neurological: Weakness; No: Numbness, Incoordination, Change in speech, Confusion, Seizures, Other Allergies: Coded Allergies: NO KNOWN ALLERGIES (Unverified , 07/22/21) Medications Current Medications Medications Dose Ordered Sig/Martha Route Start Time Stop Time Status Last Admin Dose Admin Enoxaparin Sodium 40 mg DAILY SC 01/17/25 10:00 UNV Vancomycin HCl 0 ml @ 0 mls/hr UD IV 01/17/25 08:15 Piperacillin Sod/ Tazobactam Sod 100 ml @ 25 mls/hr Q8HR IV 01/17/25 14:00 UNV Nitroglycerin 0.4 mg Q5MINP PRN SL 01/17/25 08:15 Aspirin 81 mg DAILY PO 01/17/25 10:00 Exam Vital Signs Vital Signs Date Time Temp Pulse Resp B/P (MAP) Pulse Ox O2 Delivery O2 Flow Rate FiO2 01/17/25 06:37 103.0 01/17/25 06:25 123 34 132/71 (91) 95 01/17/25 03:36 Room Air* 0 21 General Appearance: Alert, mild distress (with diaphrophresis ), Other (lethargic) HEENT: Atraumatic, PERRLA, EOMI, Mucous membr. moist/pink Respiratory: Clear to auscultation, Normal air movement Cardiovascular: Other (tachycardia ) Abdominal: Normal bowel sounds, Soft, No tenderness, No hepatospenomegaly, No masses Extremities: No clubbing, Other (swelling to ble and redness and heat to left lower ext and left foot with swelling compartment soft no open wounds) Skin: No rashes, No breakdown, No significant lesion Neuro: Other (no neuro deficits ) Psych/Mental Status: Mental status NL, Mood NL Labs/Xrays Chest x-ray unremarkable x-ray of the foot soft tissue edema no fracture x-ray tib-fib no fracture I reviewed labs, imaging CT scan abdomen pelvis, EKG and all diagnostic studies on this patient from ED records and the medical chart Labs Test 01/17/25 07:16 01/17/25 04:00 01/17/25 03:20 Range/Units Lactic Acid Level 1.5 0.4-2.0 mmol/L Urine Color Light-yellow Yellow Urine Clarity Clear Clear Urine pH 7.0 5.0-9.0 Urine Specific [place] 1.018 1.001-1.035 Urine Protein Negative Negative Urine Ketones Negative Negative Urine Blood 1+ H Negative /uL Urine Nitrite Negative Negative Urine Bilirubin Negative Negative Urine Urobilinogen Normal Negative mg/dL Urine Leukocyte Esterase Negative Negative /uL Urine RBC 6 0 - 3 /hpf Urine Microscopic WBC < 1 0-3 /HPF Urine Squamous Epithelial Cells None seen <5 /hpf Urine Bacteria None seen None Seen /hpf Urine Glucose Normal Normal mg/dL White Blood Count 14.7 H 4.4-10.8 10^3/uL Red Blood Count 5.24 4.5-5.90 10^6/uL Hemoglobin 15.1 13.5-17.5 g/dL Hematocrit 44.4 41.0-53.0 % Mean Corpuscular Volume 84.7 80.0-100.0 fL Mean Corpuscular Hemoglobin 28.7 28.0-32.0 pg Mean Corpuscular Hemoglobin Concent 33.9 32.0-36.0 g/dL Red Cell Distribution Width 13.9 11.8-14.3 % Platelet Count 202 140-450 10^3/uL Mean Platelet Volume 7.6 6.9-10.8 fL Neutrophils (%) (Auto) 88.7 H 37.0-80.0 % Lymphocytes (%) (Auto) 6.3 L 10.0-50.0 % Monocytes (%) (Auto) 4.7 0.0-12.0 % Eosinophils (%) (Auto) 0.1 0.0-7.0 % Basophils (%) (Auto) 0.2 0.0-2.0 % Neutrophils # (Auto) 13.0 H 1.6-8.6 10 ^3/uL Lymphocytes # (Auto) 0.9 0.4-5.4 10 ^3/uL Monocytes # (Auto) 0.7 0-1.3 10 ^3/uL Eosinophils # (Auto) 0 0-0.8 10 ^3/uL Basophils # (Auto) 0 0-0.2 10 ^3/uL Nucleated Red Blood Cells 0.0 % Sodium Level 132 L 136-145 mmol/L Potassium Level 4.3 3.5-5.1 mmol/L Chloride Level 101 98-107 mmol/L Carbon Dioxide Level 23 20-31 mmol/L Anion Gap 8 5-15 Blood Urea Nitrogen 10 9-23 mg/dL Creatinine 0.88 0.700-1.30 mg/dL Glomerular Filtration Rate Calc 110 >90 mL/min BUN/Creatinine Ratio 11.4 10.0-20.0 Serum Glucose 154 H 74-106 mg/dL Calcium Level 9.4 8.7-10.4 mg/dL Total Bilirubin 0.8 0.2-1.0 mg/dL Aspartate Amino Transferase (AST) 15 13-40 U/L Alanine Aminotransferase (ALT) 26 7-40 U/L Alkaline Phosphatase 54 46-116 U/L Total Protein 7.3 5.7-8.2 g/dL Albumin 4.4 3.2-4.8 g/dL SEPSIS Sepsis Screen Date sepsis recognized/suspect: Jan 17, 2025 Time Sepsis recognized/suspect: 335 Recent Procedure: No On Antibiotic Therapy: Yes Respiratory Rate >20: Yes Heart Rate >90: Yes Temp<36 C (96.8 F) or >38.3 C: Yes SBP <90 or MAP <65 mmHG: No New Acute Mental Status Change: No Is the patient on CPAP, BIPAP,: No Physician Orders Blood Culture (01/17/25 03:08) Sodium Chloride 0.9% (01/17/25 03:15) Chest Xray 1 View (01/17/25 03:08) L Tib Fib Xray (01/17/25 03:08) L Foot 2 View Xray (01/17/25 03:08) Sodium Chloride 0.9% (01/17/25 06:30) Admit (01/17/25 08:06) Abg W/ Co-Ox (01/17/25 12:00) Abg W/ Co-Ox (01/17/25 18:00) Abg W/ Co-Ox (01/18/25 00:00) Abg W/ Co-Ox (01/18/25 06:00) Call Person (01/17/25 08:06) Diagnosis (01/17/25 08:06) Code Status (01/17/25 08:06) Sepsis (01/17/25 08:06) Severe Sepsis: (01/17/25 08:06) Notify Md If: (01/17/25 08:06) Goal: (01/17/25 08:06) Goal: (01/17/25 08:06) Goal: (01/17/25 08:06) Maintain Hob >30 QSHIFT (01/17/25 08:06) Sequential Compression Device (01/17/25 08:06) Enoxaparin Sodium (Lovenox) (01/17/25 10:00) Vancomycin Per Pharmacy (01/17/25 08:15) Piperacillin-Tazo 4.5gm (Zosyn 4.5gm/100 (01/17/25 14:00) Sepsis Initial Assessment ONCE (01/17/25 08:06) Sepsis Reassessment After Flui (01/17/25 08:06) Lactic Acid W/ Reflex Order (01/17/25 08:06) Lactic Acid W/ Reflex Order (01/23/25 08:06) Lactic Acid W/ Reflex Order (01/29/25 08:06) Lactic Acid W/ Reflex Order (02/04/25 08:06) Troponin-I Hs (01/17/25 08:06) Troponin-I Hs (01/17/25 11:06) Nitroglycerin Sublingual (Ntrostat Subli (01/17/25 08:15) Stat Ekg For Chest Pain (01/17/25 08:06) Notify Of Changes From Base (01/17/25 08:06) Assistant Men'S Lacrosse Coach For 24 Hours (01/17/25 08:06) Emergency Dysrhythmia Protocol (01/17/25 08:06) Rhythm Strips Once Every Shift (01/17/25 08:06) Oxygen By Nasal Cannula (01/17/25 08:06) Troponin-I Hs (01/17/25 09:06) Drug Screen (01/17/25 08:06) Erythrocyte Sedimentation Rate (01/17/25 08:06) C-Reactive Protein (01/17/25 08:06) Electrocardigram (01/17/25 08:06) Electrocardigram (01/17/25 09:06) Electrocardigram (01/17/25 11:06) Bilat Lower Dvt (01/17/25 08:06) Daily Weight (01/17/25 08:16) Bedrest With Bathroom Privileg (01/17/25 08:16) Vital Signs Every 2 Hours And (01/17/25 08:16) Record Ekg (01/17/25 08:16) Oxygen Per Standardized Proced (01/17/25 08:16) Order Labs If Not Done In Past (01/17/25 08:16) Aspirin Chewable Tablet (01/17/25 10:00) Vital Signs Date Time Temp Pulse Resp B/P (MAP) Pulse Ox O2 Delivery O2 Flow Rate FiO2 01/17/25 06:37 103.0 01/17/25 06:25 103.0 123 34 132/71 (91) 95 103.0 01/17/25 05:43 100.8 123 34 162/98 (119) 95 100.8 01/17/25 05:37 101.1 01/17/25 05:16 101.1 101.1 01/17/25 05:08 101.0 01/17/25 04:30 99.0 120 34 147/78 (101) 92 99.0 01/17/25 04:08 101.0 01/17/25 03:36 126 30 94 Room Air* 0 21 01/17/25 03:30 101.0 126 30 173/114 (133) 94 101.0 01/17/25 02:50 103.0 130 18 160/80 100 103.0 Laboratory Tests Test 01/17/25 03:20 01/17/25 07:16 Lactic Acid Level 2.1 mmol/L (0.4-2.0) *H 1.5 mmol/L (0.4-2.0) White Blood Count 14.7 10^3/uL (4.4-10.8) H Medications Medications Dose Ordered Sig/Martha Route Start Time Stop Time Status Last Admin Dose Admin Acetaminophen 1,000 mg ONCE ONCE PO 01/17/25 04:00 01/17/25 04:01 DC 01/17/25 04:08 1,000 MG Cefazolin Sodium/ Dextrose 50 ml @ 50 mls/hr ONCE ONCE IV 01/17/25 03:15 01/17/25 04:14 DC 01/17/25 04:24 50 MLS/HR Ibuprofen 600 mg ONCE ONCE PO 01/17/25 05:30 01/17/25 05:31 DC 01/17/25 05:37 600 MG Sodium Chloride 1,000 ml @ 150 mls/hr Q6H40M ONCE IV 01/17/25 03:15 01/17/25 09:54 01/17/25 03:30 150 MLS/HR Sodium Chloride 2,000 ml @ 1,000 mls/hr Q2H ONCE IV 01/17/25 06:30 01/17/25 08:29 01/17/25 06:31 1,000 MLS/HR Vancomycin HCl 250 ml @ 250 mls/hr ONCE ONCE IV 01/17/25 03:15 01/17/25 04:14 DC 01/17/25 03:30 250 MLS/HR Assessment/Plan Assessment/Plan 44-year-old male with multiple comorbidities presenting with sepsis secondary to left leg cellulitis, requiring IV antibiotics, fluids, and sepsis protocol monitoring. acute Sepsis secondary to Left Leg Cellulitis acute left lower leg cellulitis Fever Tmax 103.0 F, WBC 14.7, lactate 2.1 Left leg edema and pain; source likely cellulitis Start IV vancomycin + zosyn pending culture results Blood cultures x2, urine culture, lactate q6h cxr negative Order venous duplex US of LLE to rule out DVT Monitor vitals, maintain MAP >65 cont sepsis protocol ordered abg for now fu esr and crp acute leukocytosis ordered blood cultures fu results cxr normal cont vanco and zosyn Heart Failure with Preserved Ejection Fraction (HFpEF) Monitor volume status closely with IV fluids Daily weights, strict I/O cxr normal chronic problems Hypertension Monitor BP ; hold antihypertensives for now since with infection Polysubstance Abuse Monitor for withdrawal symptoms ordered uds Chronic Left Leg Cellulitis Wound culture if drainage develops/Elevation of leg, compressive dressing if tolerable FEN / PPx Fluids: IV NS 3L bolus, then reassess for overload (HFpEF) Electrolytes: Monitor BMP daily Nutrition: Regular diet as tolerated DVT Prophylaxis: SCDs; Lovenox GI Prophylaxis: no hx of gerds or gi bleed no ppx indicated Disposition Admit to icu service Monitor sepsis markers and clinical improvement i anticipate this pt will require >2 midnights of medically necessary care Plan discussed with: Patient My Orders Orders - GERSON NG DNP Procedure Category Date Status Time Admit ADMIT 01/17/25 Transmitted 08:06 Abg W/ Co-Ox RT 01/17/25 Logged 12:00 Abg W/ Co-Ox RT 01/17/25 Logged 18:00 Abg W/ Co-Ox RT 01/18/25 Logged 00:00 Abg W/ Co-Ox RT 01/18/25 Logged 06:00 Call Person [facility] 01/17/25 In Process 08:06 Diagnosis DIAGNOSIS 01/17/25 Transmitted 08:06 Code Status CODE 01/17/25 Transmitted 08:06 Sepsis ORDERS 01/17/25 Transmitted 08:06 Severe Sepsis: ORDERS 01/17/25 Transmitted 08:06 Notify If: KERRI 01/17/25 In Process 08:06 Goal: KERRI 01/17/25 Transmitted 08:06 Goal: KERRI 01/17/25 Transmitted 08:06 Goal: KERRI 01/17/25 Transmitted 08:06 Maintain Hob >30 KERRI 01/17/25 In Process 08:06 Sequential [facility] 01/17/25 In Process Compression Device 08:06 Enoxaparin Sodium [facility] 01/17/25 Logged (Lovenox) 10:00 Vancomycin Per [facility] 01/17/25 In Process Pharmacy 08:15 Piperacillin-Tazo [facility] 01/17/25 Logged 4.5gm (Zosyn 4.5gm/100 14:00 Sepsis Initial KERRI 01/17/25 In Process Assessment 08:06 Sepsis Reassessment [facility] 01/17/25 In Process After Flui 08:06 Lactic Acid W/ Reflex LAB 01/17/25 Logged Order 08:06 Lactic Acid W/ Reflex LAB 01/23/25 Verified Order 08:06 Lactic Acid W/ Reflex LAB 01/29/25 Verified Order 08:06 Lactic Acid W/ Reflex LAB 02/04/25 Verified Order 08:06 Troponin-I Hs LAB 01/17/25 In Process 08:06 Troponin-I Hs LAB 01/17/25 Logged 11:06 Nitroglycerin PH[facility] 01/17/25 In Process Sublingual (Ntrostat 08:15 Stat Ekg For Chest [facility] 01/17/25 In Process Pain 08:06 Notify Of Changes [facility] 01/17/25 In Process From Base 08:06 Assistant Men'S Lacrosse Coach For [facility] 01/17/25 In Process 24 Hours 08:06 Emergency Dysrhythmia [facility] 01/17/25 In Process Protocol 08:06 Rhythm Strips Once [facility] 01/17/25 In Process Every Shift 08:06 Oxygen By Nasal RT 01/17/25 Transmitted Cannula 08:06 Troponin-I Hs LAB 01/17/25 Logged 09:06 Drug Screen LAB 01/17/25 In Process 08:06 Erythrocyte LAB 01/17/25 In Process Sedimentation Rate 08:06 C-Reactive Protein LAB 01/17/25 In Process 08:06 Electrocardigram EKG 01/17/25 Logged 08:06 Electrocardigram EKG 01/17/25 Logged 09:06 Electrocardigram EKG 01/17/25 Logged 11:06 Bilat Lower Dvt US 01/17/25 Logged 08:06 Daily Weight [facility] 01/17/25 In Process 08:16 Bedrest With Bathroom [facility] 01/17/25 In Process Privileg 08:16 Vital Signs Every 2 [facility] 01/17/25 In Process Hours And 08:16 Record Ekg [facility] 01/17/25 In Process 08:16 Oxygen Per [facility] 01/17/25 In Process Standardized Proced 08:16 Order Labs If Not [facility] 01/17/25 In Process Done In Past 08:16 Aspirin Chewable PH[facility] 01/17/25 In Process Tablet 10:00 Date of Service: Jan 17, 2025 Billing Provider: GERSON NG DNP Common Visit Codes: [id number] INP/OBS CARE (HIGH), [id number] CARE 30- 74 MIN (Total critical care time: Approximately 45 minutes This critical care time included obtaining a history; examining the patient; pulse oximetry; ordering and review of studies; arranging urgent treatment with development of a management plan; evaluation of patient's response to treatment; frequent reassessment; and, discussions with other providers.) GERSON NG DNP Jan 17, 2025 08:42
[2025-01-17 08:50] LABS: Amphetamine Screen, Urine Pos (NEGATIVE); Barbiturate Scree,Urine Neg (NEGATIVE); Benzodiazephine Screen, Urine Neg (NEGATIVE); Cannabinoid Screen, Urine Neg (NEGATIVE); Cocaine Screen, Urine Neg (NEGATIVE); Opiate Scree,Urine Neg (NEGATIVE); Phencyclidine Screen, Urine Neg (NEGATIVE)
--- NOTE | 2025-01-17 09:32 | DVH ---
CLINICAL HISTORY: eval for dvt TECHNIQUE: Color and duplex doppler imagine of the bilateral lower extremity veins was performed. Vessel compression and augmentation if possible was also performed. COMPARISON: US BILAT LOWER DVT on DOS: 11/07/24, US RT LOWER DVT on DOS: 11/06/24, CT RT LOWER EXTREMITY W CON on DOS: 08/15/24, US BILAT LOW EXT ART DUPLEX on DOS: 08/14/24, US BILAT LOWER DVT on DOS: 08/13/24 FINDINGS: Right Lower Extremity: Right common femoral vein: Normal compressibility and flow. Right superficial femoral vein: Normal compressibility and flow. Right popliteal vein: Normal compressibility and flow. Left Lower Extremity: Left common femoral vein: Normal compressibility and flow. Left superficial femoral vein: Normal compressibility and flow. Left popliteal vein: Normal compressibility and flow. There are multiple enlarged left inguinal lymph nodes, the largest measuring 2 cm in short axis. There are preserved fatty hilum. IMPRESSION: No sonographic evidence for DVT in the imaged lower extremities. Left inguinal lymphadenopathy with lymph nodes measuring up to 2 cm in short axis.
[2025-01-17 09:38] LABS: Base Excess -3.9 mmol/L (-2.0-3.0)
[2025-01-17] MEDS: ENOXAPARIN SOD 40 MG/0.4 ML SYRINGE SC SCH (10:05)
[2025-01-17] MEDS ORDERED: FUROSEMIDE 40 MG/4 ML VIAL IV ONE (10:30)
[2025-01-17] MEDS: FUROSEMIDE 40 MG/4 ML VIAL IV ONE (11:46)
[2025-01-17] MEDS: PIPERACILLIN-TAZO 4.5GM 100 ML IV SCH (12:21)
[2025-01-17] MEDS: ACETAMINOPHEN 325 MG TAB PO PRN (15:22)
[2025-01-17] MEDS: FUROSEMIDE 20 MG/2 ML VIAL IV SCH (17:51)
[2025-01-17 17:55] VITALS: BP 125/75; PULSE 109; PULSE 115; RESP 18; RESP 20; TEMP 98.8; O2SAT 95
[2025-01-17 20:00] VITALS: PULSE 110; PULSE 117; O2SAT 96
[2025-01-17 21:00] VITALS: BP 153/96; PULSE 112; RESP 19; TEMP 98.6; O2SAT 95
[2025-01-18] MEDS: HYDROcodone-ACET 5/325MG TAB PO PRN (04:58)
[2025-01-18 05:00] VITALS: BP 158/95; PULSE 110; RESP 19; TEMP 98.6; O2SAT 93
[2025-01-18] MEDS: PIPERACILLIN-TAZO 4.5GM 100 ML IV SCH (05:35)
[2025-01-18 06:32] LABS: Hematocrit 40.5 % (41.0-53.0); Hemoglobin 14.1 g/dL (13.5-17.5); Mean Corpuscular Hemoglobin 29.3 pg (28.0-32.0); Mean Corpuscular Volume 84.2 fL (80.0-100.0); Nucleated Red Blood Cells % 0.0 %
[2025-01-18 08:00] VITALS: PULSE 97
[2025-01-18 08:30] VITALS: PULSE 100; RESP 18; O2SAT 95
[2025-01-18 09:00] VITALS: BP 131/92; PULSE 100; RESP 18; TEMP 97.1; O2SAT 95
--- NOTE | 2025-01-18 09:38 | DVHPN2 ---
Progress Note - Dictate vital signs Vital Sign Date Time Temp Pulse Resp B/P (MAP) Pulse Ox O2 Delivery O2 Flow Rate FiO2 01/18/25 05:35 160/90 01/18/25 05:00 98.6 110 19 93 98.6 01/17/25 20:00 Room Air* 0 21 Total Intake and Output 01/17/25 01/17/25 01/18/25 15:00 23:00 07:00 Intake Total 2500 ml 445 ml 1000 ml Output Total 1200 ml Balance 2500 ml 445 ml -200 ml medications Current Medications Medications Dose Ordered Sig/Martha Route Start Time Stop Time Status Last Admin Dose Admin Enoxaparin Sodium 40 mg DAILY SC 01/17/25 10:00 01/17/25 10:05 40 MG Vancomycin HCl 0 ml @ 0 mls/hr UD IV 01/17/25 08:15 Nitroglycerin 0.4 mg Q5MINP PRN SL 01/17/25 08:15 Aspirin 81 mg DAILY PO 01/17/25 10:00 01/17/25 10:05 81 MG Furosemide 20 mg BIDD IV 01/17/25 18:00 01/18/25 05:35 20 MG Acetaminophen 650 mg Q6HP PRN PO 01/17/25 14:15 01/17/25 15:22 650 MG Acetaminophen/ Hydrocodone Bitart 1 tab Q6HPRN PRN PO 01/17/25 20:30 01/18/25 04:58 1 TAB Piperacillin Sod/ Tazobactam Sod 100 ml @ 25 mls/hr Q6HR IV 01/18/25 06:00 01/18/25 05:35 25 MLS/HR laboratory and microbiology Laboratory Tests 01/18/25 05:15 01/17/25 03:20 Test 01/17/25 03:20 Range/Units Serum Glucose 154 H 74-106 mg/dL ECTOR SEAMAN DOCK[employer] Jan 18, 2025 09:38
[2025-01-18] MEDS ORDERED: VANCOMYCIN PER PHARMACY 0 MG IV SCH (09:45)
--- NOTE | 2025-01-18 09:59 | DVHDS2 ---
Discharge Summary Date of Admission Jan 17, 2025 at 08:06 Date of Discharge: Jan 18, 2025 Labs/Diagnostic Data: Laboratory Results Test 01/18/25 05:15 01/17/25 12:08 01/17/25 09:34 01/17/25 07:16 White Blood Count 11.4 10^3/uL (4.4-10.8) Red Blood Count 4.81 10^6/uL (4.5-5.90) Hemoglobin 14.1 g/dL (13.5-17.5) Hematocrit 40.5 % (41.0-53.0) Mean Corpuscular Volume 84.2 fL (80.0-100.0) Mean Corpuscular Hemoglobin 29.3 pg (28.0-32.0) Mean Corpuscular Hemoglobin Concent 34.8 g/dL (32.0-36.0) Red Cell Distribution Width 14.0 % (11.8-14.3) Platelet Count 170 10^3/uL (140-450) Mean Platelet Volume 8.2 fL (6.9-10.8) Neutrophils (%) (Auto) 78.6 % (37.0-80.0) Lymphocytes (%) (Auto) 14.6 % (10.0-50.0) Monocytes (%) (Auto) 6.5 % (0.0-12.0) Eosinophils (%) (Auto) 0.2 % (0.0-7.0) Basophils (%) (Auto) 0.1 % (0.0-2.0) Neutrophils # (Auto) 9.0 10 ^3/uL (1.6-8.6) Lymphocytes # (Auto) 1.7 10 ^3/uL (0.4-5.4) Monocytes # (Auto) 0.7 10 ^3/uL (0-1.3) Eosinophils # (Auto) 0 10 ^3/uL (0-0.8) Basophils # (Auto) 0 10 ^3/uL (0-0.2) Nucleated Red Blood Cells 0.0 % Creatinine 1.03 mg/dL (0.700-1.30) Glomerular Filtration Rate Calc 93 mL/min (>90) Random Vancomycin Level 3.6 ug/mL (5-10) Troponin I High Sensitivity 15 ng/L (</=54) Blood Gas Specimen Type Arterial Blood Gas Sample Site Right radial Blood Gas Patient Temperature 37.0 Arterial Blood Date Drawn [id number] Arterial Blood pH 7.390 (7.350-7.450) Arterial Blood Partial Pressure CO2 34.2 mmHg (35.0-48.0) Arterial Blood Partial Pressure O2 84.9 mmHg (83.0-108.0) Arterial Blood HCO3 20.2 mmol/L (21.0-28.0) Arterial Blood Oxygen Saturation 96.6 % (94.0-98.0) Arterial Blood Base Excess -3.9 mmol/L (-2.0-3.0) Arterial Blood Oxyhemoglobin 94.6 % (94.0-98.0) Arterial Blood Carboxyhemoglobin 1.7 % (0.5-1.5) Arterial Blood Methemoglobin 0.4 % (0.0-1.5) Arterial Blood Deoxyhemoglobin 3.3 % (0.0-5.0) Rosendo Test Yes Blood Gas Total Hemoglobin 14.70 g/dL (13.5-17.5) Blood Gas Modality Room air FiO2 % 21.0 Lactic Acid Level 1.5 mmol/L (0.4-2.0) Test 01/17/25 04:00 01/17/25 03:20 Urine Color Light-yellow (Yellow) Urine Clarity Clear (Clear) Urine pH 7.0 (5.0-9.0) Urine Specific [place] 1.018 (1.001-1.035) Urine Protein Negative (Negative) Urine Ketones Negative (Negative) Urine Blood 1+ /uL (Negative) Urine Nitrite Negative (Negative) Urine Bilirubin Negative (Negative) Urine Urobilinogen Normal mg/dL (Negative) Urine Leukocyte Esterase Negative /uL (Negative) Urine RBC 6 /hpf (0 - 3) Urine Microscopic WBC < 1 /HPF (0-3) Urine Squamous Epithelial Cells None seen /hpf (<5) Urine Bacteria None seen /hpf (None Seen) Urine Glucose Normal mg/dL (Normal) Urine Opiates Screen Neg (NEGATIVE) Urine Fentanyl Screen Neg (NEGATIVE) Urine Barbiturates Screen Neg (NEGATIVE) Urine Phencyclidine Screen Neg (NEGATIVE) Urine Amphetamines Screen Pos (NEGATIVE) Urine Benzodiazepines Screen Neg (NEGATIVE) Urine Cocaine Screen Neg (NEGATIVE) Urine Cannabinoids Screen Neg (NEGATIVE) Erythrocyte Sedimentation Rate 17 mm/hr (0-20) Sodium Level 132 mmol/L (136-145) Potassium Level 4.3 mmol/L (3.5-5.1) Chloride Level 101 mmol/L (98-107) Carbon Dioxide Level 23 mmol/L (20-31) Anion Gap 8 (5-15) Blood Urea Nitrogen 10 mg/dL (9-23) BUN/Creatinine Ratio 11.4 (10.0-20.0) Serum Glucose 154 mg/dL (74-106) Calcium Level 9.4 mg/dL (8.7-10.4) Total Bilirubin 0.8 mg/dL (0.2-1.0) Aspartate Amino Transferase (AST) 15 U/L (13-40) Alanine Aminotransferase (ALT) 26 U/L (7-40) Alkaline Phosphatase 54 U/L (46-116) C-Reactive Protein High Sensitivity < 0.016 mg/dL (<1.0) B-Type Natriuretic Peptide 44.35 pg/mL (0-100) Total Protein 7.3 g/dL (5.7-8.2) Albumin 4.4 g/dL (3.2-4.8) Other Laboratory Tests 01/18/25 05:15 01/17/25 03:20 Brief Hx & Hospital Course: Patient was admitted for sepsis and cellulitis to his left lower extremity. Patient has a history of polysubstance abuse. Patient was positive for methamphetamines. Patient was also morbidly obese and he is noncompliant with medical care. Patient refused for his IV to be reinserted for antibiotics. Patient decided he felt better and wanted to leave AGAINST MEDICAL ADVICE. He was instructed to stay for additional treatment however patient stated he would come back to the emergency room if his condition got worse. He was instructed to follow-up with his PCP in 1 week. The patient decided they wanted to leave AMA. The patient was informed about the risk of leaving. And was informed about the risk that are involved if they left without any treatment which may include . The patient was okay with it and decided to leave without any intervention. The patient was told to return for any worsening symptoms. Condition at Discharge: Unstable Final Diagnosis/Problems List Acute sepsis secondary to left leg cellulitis Acute left lower cellulitis Acute leukocytosis Chronic systolic heart failure Discharge Disposition: AMA Discharge Instruct/Medications Scheduled Amoxicillin & Pot Clavulanate (Augmentin Tablet), 875 MG PO BID Furosemide (Lasix), 40 MG PO DAILY Losartan Potassium (Losartan Potassium), 50 MG PO BID Scheduled PRN Hydrocodone-Acetaminophen (Hydrocodone Bitartrate/AC 10-325 mg), 1 TAB PO Q6HPRN PRN Discharge Statement: "Patient was advised to return to the ER or call 911 if any headaches, dizziness, shortness of breath, chest pain, abdominal pain, bleeding, fevers, or worsening of medical condition. Patient was counseled about treatment plan, medications, possible side effects, patientverbalized understanding. All questions were answered to the best of my ability. This discharge took greater then 30 minutes in planning, reviewing documentation, counseling the patient, and discussing with other team members." ASSESSMENT ASSESSMENT Assessment ECTOR SEAMAN NP Jan 18, 2025 09:59
[2025-01-18] MEDS ORDERED: VANCOMYCIN 1.25GM/250ML 250 ML IV SCH (13:00)
== END 2025-01-18 13:40 | disposition left against medical advice (07) | DRG 720 ==
LOC: ER 02:50 → EDBD 02:50 → OVERFLOW 08:06 → TELE-WESTW 17:56
PROVIDERS: ADMIT Nurse Practitioner Family; ATTEND Nurse Practitioner Family
DX: A41.9 Sepsis, unspecified organism (principal); G92.9 Unspecified toxic encephalopathy; I11.0 Hypertensive heart disease with heart failure; L03.116 Cellulitis of left lower limb; E66.01 Morbid (severe) obesity due to excess calories; F15.10 Other stimulant abuse, uncomplicated; I50.42 Chronic combined systolic (congestive) and diastolic (congestive) heart failure; F17.210 Nicotine dependence, cigarettes, uncomplicated; Z53.21 Procedure and treatment not carried out due to patient leaving prior to being seen by health care provider; Z79.899 Other long term (current) drug therapy; Z90.49 Acquired absence of other specified parts of digestive tract; Z68.38 Body mass index [BMI] 38.0-38.9, adult; Z91.199 Patient's noncompliance with other medical treatment and regimen due to unspecified reason
CPT/HCPCS: 36415; 71045; 73590; 73620; 80053; 80202; 80307; 81001; 82565; 83605; 83880; 84484; 85025; 85652; 86141; 87040; 93970; 96365; 96375; 99291; G0378; J2543